=== PATIENT | female | born 1950 | race Caucasian/White ===

== ENCOUNTER → 2018-04-09 09:33 | Outpatient (CLI) | payer MEDICARE, OTHER, SELFPAY | PROVIDERS: Family Provider Specialist; PCP Specialist; Visit Provider Physician Assistant | DX: N39.0 Urinary tract infection, site not specified (principal) | CPT/HCPCS: 87086 ==

== ENCOUNTER 2018-08-09 10:30 | Outpatient (RCR) | payer MEDICARE, OTHER, SELFPAY ==
--- NOTE | 2018-01-04 11:18 | PT.OTN ---
Current Diagnoses Muscle weakness (generalized) (01/04/18) Other abnormalities of gait and mobility (01/04/18) Abnormal posture (01/04/18) Unspecified displaced fracture of second cervical vertebra, subsequent encounter for fracture with routine healing (01/04/18) Transition note: On January 02, 2018 our therapy services consisting of Speech, Occupational, and Physical Therapy transitioned from the [employer] electronic documentation system to a new [employer] electronic documentation system.?? All documentation prior to January 02 can be found under [employer] saved data. From January 02 forward all medical record documentation will be in [employer] 6.1.
--- NOTE | 2018-01-04 11:41 | PT.OTN ---
Current Diagnoses Muscle weakness (generalized) (01/04/18) Other abnormalities of gait and mobility (01/04/18) Abnormal posture (01/04/18) Unspecified displaced fracture of second cervical vertebra, subsequent encounter for fracture with routine healing (01/04/18) Physical Therapy Treatment Note PT-OP-A Visit Information Start: 01/04/18 10:28 Freq: Status: Active Protocol: Activity Type Activity Date Activity User E-Sign Co-Sign Detail Recorded Client Recorded Date Recorded By Document 01/04/18 11:25 [place] [id number] 01/04/18 11:29 [facility] 01/04/18 11:25 Out-Patient Physical Therapy Visit Information [Visit Information] -Visit Type Treatment Note -Visit Start Time 10:30 -Visit Stop Time 11:21 -Total Visit Minutes 51 -Visit Number 8 [Evaluation Information] -Evaluation Date 10/25/17 PT-OP-C Subjective Start: 01/04/18 10:28 Freq: Status: Active Protocol: Activity Type Activity Date Activity User E-Sign Co-Sign Detail Recorded Client Recorded Date Recorded By Document 01/04/18 11:29 [place] [id number] 01/04/18 11:31 [facility] 01/04/18 11:29 OP-PT Subjective [Patient Comments] -Patient Comments Pt notes that she is feeling like she is less worried about her neck with daily activities. She was able to go out in the garden yesterday for a little bit without pain. -Patient Reported Progress Improving PT-OP-K Range of Motion Start: 01/04/18 11:29 Freq: Status: Active Protocol: Activity Type Activity Date Activity User E-Sign Co-Sign Detail Recorded Client Recorded Date Recorded By Document 01/04/18 11:29 [place] [id number] 01/04/18 11:31 [facility] 01/04/18 11:29 Cervical Spine Range of Motion [Cervical Spine] Active Degrees -Testing Position Supine -Rotation Left 24 -Rotation Right 26 -ROM Limitations Soft Tissue Tightness Bony Restriction -Comments L rotation 29 deg, R rotation 30 deg after manual therapy. PT-OP-Q Treatments Start: 01/04/18 10:28 Freq: Status: Active Protocol: Activity Type Activity Date Activity User E-Sign Co-Sign Detail Recorded Client Recorded Date Recorded By Document 01/04/18 11:32 [place] [id number] 01/04/18 11:35 [facility] 01/04/18 11:32 Cardio Equipment [Recumbent Stepper (Sci-Fit)] -Duration (Minutes) 6 -Resistance 2 -Seat Position 11 -Other Sci-fit Manual Therapy Treatment [Soft Tissue Mobilization] 4 -Body Location Upper trapezius -Mobilization Type Sustained Pressure -Intensity/Depth Moderate -Body Position Supine -Comments 6 min. 3 -Body Location Levator scapulae -Mobilization Type Rolling -Intensity/Depth Moderate -Body Position Supine -Comments 10 min 2 -Body Location suboccipitals -Mobilization Type Rolling -Intensity/Depth Moderate -Body Position Supine -Comments 6 min 1 -Body Location Scalenes -Mobilization Type Rolling -Intensity/Depth Moderate -Body Position Supine -Comments 8 min PT-OP-R Modalities Start: 01/04/18 10:28 Freq: Status: Active Protocol: Activity Type Activity Date Activity User E-Sign Co-Sign Detail Recorded Client Recorded Date Recorded By Document 01/04/18 11:32 [place] [id number] 01/04/18 11:32 [facility] 01/04/18 11:32 Hot Pack/Cold Pack [Treatment] Hot Pack -Location cervical -Patient Position Supine -Treatment Duration (minutes) 15 -Patient Tolerance Good -Comments bolster PT-OP-T Assessment and Plan Start: 01/04/18 10:28 Freq: Status: Active Protocol: Activity Type Activity Date Activity User E-Sign Co-Sign Detail Recorded Client Recorded Date Recorded By Document 01/04/18 11:36 [place] [id number] 01/04/18 11:40 [facility] 01/04/18 11:36 Physical Therapy Assessment [Impairments] -Impairments Posture ROM Soft Tissue Mobility [Assessment Summary] -Assessment Pt with increase of cervical spine rotation after manual therapy, although significant time is required in order to make these improvements during each session. Pt is improved from baseline testing on initial evaluation, and is improving with her functional activities. Pt still unable to drive due to neck ROM limitation. Physical Therapy Plan [Frequency and Duration] -Frequency of Treatment 1x/Week -Duration of Treatment 12 wks -Plan of Care Start Date 10/25/17 -Plan of Care End Date 01/16/18 [Next Visit Focus/Plan] -Next Visit Plan continue to progress soft tissue mobilization to improve ROM, gentle joint mobilization of lower c/s, postural training.
--- NOTE | 2018-01-11 12:39 | PT.OTN ---
Current Diagnoses Muscle weakness (generalized) (01/11/18) Other abnormalities of gait and mobility (01/11/18) Abnormal posture (01/11/18) Unspecified displaced fracture of second cervical vertebra, subsequent encounter for fracture with routine healing (01/11/18) Physical Therapy Treatment Note PT-OP-A Visit Information Start: 01/04/18 10:28 Freq: Status: Active Protocol: Document 01/11/18 11:19 [facility] (Rec: 01/11/18 12:39 [facility] [email or web address]) Out-Patient Physical Therapy Visit Information Visit Information Visit Type Treatment Note Visit Start Time 10:35 Visit Stop Time 11:19 Total Visit Minutes 44 Visit Number 9 Number of ASSISTANT GOLF COACH Visits 0 PT-OP-C Subjective Start: 01/04/18 10:28 Freq: Status: Active Protocol: Document 01/11/18 11:19 [facility] (Rec: 01/11/18 12:39 [facility] [email or web address]) OP-PT Subjective Patient Comments Patient Comments Pt did some quilting before this session, she notes increased tension in the L neck and head after this activity. Patient Reported Progress Improving PT-OP-K Range of Motion Start: 01/04/18 11:29 Freq: Status: Active Protocol: Document 01/04/18 11:29 [facility] (Rec: 01/04/18 11:31 [facility] [email or web address]) Cervical Spine Range of Motion Cervical Spine Active Degrees Testing Position Supine Rotation Left 24 Rotation Right 26 ROM Limitations Soft Tissue Tightness Bony Restriction Comments L rotation 29 deg, R rotation 30 deg after manual therapy. PT-OP-Q Treatments Start: 01/04/18 10:28 Freq: Status: Active Protocol: Document 01/11/18 11:19 [facility] (Rec: 01/11/18 12:39 [facility] [email or web address]) Cardio Equipment Recumbent Stepper (Sci-Fit) Duration (Minutes) 8 Resistance 2 Seat Position 11 Manual Therapy Treatment Soft Tissue Mobilization 3 Body Location Levator scapula Mobilization Type Rolling Intensity/Depth Moderate Body Position Supine Comments 8 min 2 Body Location suboccipitals Mobilization Type Rolling Intensity/Depth Moderate Body Position Supine Comments 5 min 1 Body Location Scalenes Mobilization Type Rolling Intensity/Depth Moderate Body Position Supine Comments 8 min PT-OP-R Modalities Start: 01/04/18 10:28 Freq: Status: Active Protocol: Document 01/11/18 11:19 [facility] (Rec: 01/11/18 12:39 [facility] [email or web address]) Hot Pack/Cold Pack Treatment Hot Pack Location cervical Patient Position Supine Treatment Duration (minutes) 15 Patient Tolerance Good Comments kamilla PT-OP-T Assessment and Plan Start: 01/04/18 10:28 Freq: Status: Active Protocol: Document 01/11/18 11:19 [facility] (Rec: 01/11/18 12:39 [facility] [email or web address]) Physical Therapy Assessment Assessment Summary Assessment Pt with increased L posterior scalene and levator tension this session, likely due to head on neck positioning while quilting. Pt with mild L anterior hip soreness with Sci -fit, but improved activity tolerance of this activity as well as gentle cervical ROM noted with this activity without increased pain. Physical Therapy Plan Frequency and Duration Frequency of Treatment 1x/Week Duration of Treatment 12 wks Plan of Care Start Date 10/25/17 Plan of Care End Date 01/16/18 Next Visit Focus/Plan Next Visit Plan Re-assess objective measures next session, Re-evaluation.
--- NOTE | 2018-01-27 13:27 | PT.OTN ---
Current Diagnoses Muscle weakness (generalized) (01/25/18) Other abnormalities of gait and mobility (01/25/18) Abnormal posture (01/25/18) Unspecified displaced fracture of second cervical vertebra, subsequent encounter for fracture with routine healing (01/25/18) Physical Therapy Treatment Note PT-OP-A Visit Information Start: 01/04/18 10:28 Freq: Status: Active Protocol: Document 01/25/18 11:15 [facility] (Rec: 01/27/18 13:25 [facility] [email or web address]) Out-Patient Physical Therapy Visit Information Visit Information Visit Type Treatment Note Visit Start Time 10:30 Visit Stop Time 11:15 Total Visit Minutes 45 Visit Number 10 Number of SERVICE TEAM LEADER Visits 0 Evaluation Information Evaluation Date 10/25/17 PT-OP-C Subjective Start: 01/04/18 10:28 Freq: Status: Active Protocol: Document 01/25/18 11:15 [facility] (Rec: 01/27/18 13:25 [facility] [email or web address]) OP-PT Subjective Patient Comments Patient Comments Pt states that she has some increased soreness in her shoulders from doing some house chores. She feels like her ROM is getting better. Patient Reported Progress Improving PT-OP-K Range of Motion Start: 01/04/18 11:29 Freq: Status: Active Protocol: Document 01/25/18 11:15 [facility] (Rec: 01/27/18 13:25 [facility] [email or web address]) Cervical Spine Range of Motion Cervical Spine Active Degrees Testing Position Sitting Flexion 46 Extension 26 Rotation Left 26 Rotation Right 31 Lateral Flexion Left 18 Lateral Flexion Right 20 ROM Limitations Soft Tissue Tightness Bony Restriction Comments Initial ROM on 10/25/2017: flexion 31 deg, extension 9 deg, L rotation 14 deg,R rotation 17 deg, L SB 12 deg, R SB 8 deg. PT-OP-M Strength Start: 01/27/18 13:02 Freq: Status: Active Protocol: Document 01/25/18 11:15 [facility] (Rec: 01/27/18 13:25 [facility] [email or web address]) Scapula Strength Scapula Manual Muscle Testing Right Elevation (C4) 5 Normal Left Elevation (C4) 5 Normal Shoulder Strength Shoulder Manual Muscle Testing Right Flexion 5 Normal Abduction (C5) 4+ Good+ External Rotation 5 Normal Internal Rotation 5 Normal Left Flexion 5 Normal Abduction (C5) 4+ Good+ External Rotation 5 Normal Internal Rotation 5 Normal Elbow/Forearm Strength Elbow and Forearm Manual Muscle Testing Right Flexion (C6) 5 Normal Extension (C7) 5 Normal Left Flexion (C6) 4+ Good+ Extension (C7) 4+ Good+ PT-OP-Q Treatments Start: 01/04/18 10:28 Freq: Status: Active Protocol: Document 01/25/18 11:15 [facility] (Rec: 01/27/18 13:25 [facility] [email or web address]) Manual Therapy Treatment Soft Tissue Mobilization 4 Body Location Upper trapezius Mobilization Type Sustained Pressure Intensity/Depth Moderate Body Position Supine Comments 8 min. 3 Body Location Levator scapula Mobilization Type Rolling Intensity/Depth Moderate Body Position Supine Comments 8 min 2 Body Location suboccipitals Mobilization Type Rolling Intensity/Depth Moderate Body Position Supine Comments 6 min 1 Body Location Scalenes Mobilization Type Rolling Intensity/Depth Moderate Body Position Supine Comments 8 min Other Other Manual Treatments ROM, UE MMT: 10 min PT-OP-R Modalities Start: 01/04/18 10:28 Freq: Status: Active Protocol: Document 01/25/18 11:15 [facility] (Rec: 01/27/18 13:27 [facility] [email or web address]) Hot Pack/Cold Pack Treatment Hot Pack Location cervical Patient Position Supine Treatment Duration (minutes) 15 Patient Tolerance Good Comments bolster PT-OP-T Assessment and Plan Start: 01/04/18 10:28 Freq: Status: Active Protocol: Document 01/25/18 11:15 [facility] (Rec: 01/27/18 13:25 [facility] [email or web address]) Physical Therapy Assessment Rehab Potential Rehabilitation Potential Fair Impairments Impairments Functional Activities Posture ROM Soft Tissue Mobility Strength Goals Five Impairment Neck strength Mcc Goal (LTG) Pt will be able to perform supine<->sit without UE assist on head for support prior to d/c. (goal achieved) LTG Duration 12 weeks Four Impairment UE strength Mcc Goal (LTG) Bilateral Elbow flexion and extension 5/ 5 Shoulder abduction, extension, ER, flexion, IR 5/5 LTG Duration 12 weeks Three Impairment Lack appropriate HEP Stogy Roller Goal (LTG) Indep. with HEP LTG Duration 12 weeks Two Impairment cervical spine ROM Mcc Goal (LTG) AROM: extension 35 deg flexion 50 deg rotation L 50 deg rotation R 50 deg side bend L 30 deg side bend R 30 deg LTG Duration 12 weeks One Impairment Unable to drive Stogy Roller Goal (LTG) Pt will report improved ability to head-check while driving prior to d/c. LTG Duration 12 weeks Progress Towards Goals Progress Towards Goals Slow Progress - Other Progress Comments slow progress due to prolonged immobilizaiton and complexity of previous fx. Goal met of ability to perform supine<-> sit without UE support. Assessment Summary Assessment Pt is progressing with her cervical spine ROM, but still significantly limited given the hypomobility of the cervical spine, especially the upper cervical spine given her fracture and prolonged immobilization. Pt is still unable to perform a safe head -check for driving, but is back to doing daily chores at home. Pt is making progress toward goals, and would greatly benefit from the continuation of skilled physical therapy to achieve established goals and improve quality of life by improving ROM, strength, and function to allow for prior level of activity tolerance. Physical Therapy Plan Frequency and Duration Frequency of Treatment 1x/Week Duration of Treatment 12 wks Plan of Care Start Date 01/25/18 Plan of Care End Date 04/19/18 Therapeutic Interventions Therapeutic Interventions Aquatic Therapy Balance Training Home Exercise Program Joint Mobilizations Manual Therapy Neuromuscular Re-education Patient/Caregiver Education Self-Care/Home Management Soft Tissue Mobilization Therapeutic Activities Therapeutic Exercises Modalities Cold Pack/Ice Massage Electric Stimulation Hot Packs Ultrasound Next Visit Focus/Plan Next Note Type Treatment Note Next Visit Plan progress ROM, decrease soft tissue restrictions. Please Sign and Return: I have reviewed this Plan of Care and certify that the skilled therapy services above are required to meet the patient???s needs. Physician Signature Date Printed Name and Credentials Clinical Instructor Signature Printed Name and Credentials
--- NOTE | 2018-02-01 12:26 | PT.OTN ---
Current Diagnoses Muscle weakness (generalized) (02/01/18) Other abnormalities of gait and mobility (02/01/18) Abnormal posture (02/01/18) Unspecified displaced fracture of second cervical vertebra, subsequent encounter for fracture with routine healing (02/01/18) Physical Therapy Treatment Note PT-OP-A Visit Information Start: 01/04/18 10:28 Freq: Status: Active Protocol: Document 02/01/18 11:15 [facility] (Rec: 02/01/18 12:26 [facility] [email or web address]) Out-Patient Physical Therapy Visit Information Visit Information Visit Type Treatment Note Visit Start Time 10:30 Visit Stop Time 11:15 Total Visit Minutes 45 Visit Number 11 Number of TOOL ROOM MACHINIST Visits 0 Evaluation Information Evaluation Date 10/25/17 PT-OP-C Subjective Start: 01/04/18 10:28 Freq: Status: Active Protocol: Document 02/01/18 11:15 [facility] (Rec: 02/01/18 12:26 [facility] [email or web address]) OP-PT Subjective Patient Comments Patient Comments Pt was able to to drive today with her for the first time since her injury. She has noticed a slight increase in her ability to tolerate increased time sewing. Patient Reported Progress Improving PT-OP-K Range of Motion Start: 01/04/18 11:29 Freq: Status: Active Protocol: Document 01/25/18 11:15 [facility] (Rec: 01/27/18 13:25 [facility] [email or web address]) Cervical Spine Range of Motion Cervical Spine Active Degrees Testing Position Sitting Flexion 46 Extension 26 Rotation Left 26 Rotation Right 31 Lateral Flexion Left 18 Lateral Flexion Right 20 ROM Limitations Soft Tissue Tightness Bony Restriction Comments Initial ROM on 10/25/2017: flexion 31 deg, extension 9 deg, L rotation 14 deg,R rotation 17 deg, L SB 12 deg, R SB 8 deg. PT-OP-M Strength Start: 01/27/18 13:02 Freq: Status: Active Protocol: Document 01/25/18 11:15 [facility] (Rec: 01/27/18 13:25 [facility] [email or web address]) Scapula Strength Scapula Manual Muscle Testing Right Elevation (C4) 5 Normal Left Elevation (C4) 5 Normal Shoulder Strength Shoulder Manual Muscle Testing Right Flexion 5 Normal Abduction (C5) 4+ Good+ External Rotation 5 Normal Internal Rotation 5 Normal Left Flexion 5 Normal Abduction (C5) 4+ Good+ External Rotation 5 Normal Internal Rotation 5 Normal Elbow/Forearm Strength Elbow and Forearm Manual Muscle Testing Right Flexion (C6) 5 Normal Extension (C7) 5 Normal Left Flexion (C6) 4+ Good+ Extension (C7) 4+ Good+ PT-OP-Q Treatments Start: 01/04/18 10:28 Freq: Status: Active Protocol: Document 02/01/18 11:15 [facility] (Rec: 02/01/18 12:26 [facility] [email or web address]) Cardio Equipment Recumbent Elliptical (Bi[employer]) Duration (Minutes) 8 Resistance 2 Therapeutic Exercises Supine Exercises 1 Supine Exercise Name levator and UT stretch Side bilateral Comments manual Manual Therapy Treatment Soft Tissue Mobilization 4 Body Location Upper trapezius Mobilization Type Sustained Pressure Intensity/Depth Moderate Body Position Supine Comments 2 min. 3 Body Location Levator scapula Mobilization Type Rolling Intensity/Depth Moderate Body Position Supine Comments 6 min 2 Body Location suboccipitals Mobilization Type Rolling Intensity/Depth Moderate Body Position Supine Comments 6 min 1 Body Location Scalenes Mobilization Type Rolling Intensity/Depth Moderate Body Position Supine Comments 6 min PT-OP-R Modalities Start: 01/04/18 10:28 Freq: Status: Active Protocol: Document 02/01/18 11:15 [facility] (Rec: 02/01/18 12:26 [facility] [email or web address]) Hot Pack/Cold Pack Treatment Hot Pack Location cervical Patient Position Supine Treatment Duration (minutes) 15 Patient Tolerance Good Comments kamilla PT-OP-T Assessment and Plan Start: 01/04/18 10:28 Freq: Status: Active Protocol: Document 02/01/18 11:15 [facility] (Rec: 02/01/18 12:26 [facility] [email or web address]) Physical Therapy Assessment Assessment Summary Assessment Pt with L>R tension in levator and scalenes. Pt still severely restricted with ROM, but reports improvments with overall function. Pt would greatly benefit from the continuation of skilled outpatient physical therapy to progress her activity tolerance, postural stabilization and ROM. Physical Therapy Plan Frequency and Duration Frequency of Treatment 1x/Week Duration of Treatment 12 wks Plan of Care Start Date 01/25/18 Plan of Care End Date 04/19/18 Next Visit Focus/Plan Next Note Type Treatment Note Next Visit Plan cervical spine ROM, jose-glides /joint mobs of lower c/s. Please Sign and Return: I have reviewed this Plan of Care and certify that the skilled therapy services above are required to meet the patient???s needs. Physician Signature Date Printed Name and Credentials Clinical Instructor Signature Printed Name and Credentials
--- NOTE | 2018-02-08 11:46 | PT.OTN ---
Current Diagnoses Muscle weakness (generalized) (02/08/18) Other abnormalities of gait and mobility (02/08/18) Abnormal posture (02/08/18) Unspecified displaced fracture of second cervical vertebra, subsequent encounter for fracture with routine healing (02/08/18) Physical Therapy Treatment Note PT-OP-A Visit Information Start: 01/04/18 10:28 Freq: Status: Active Protocol: Document 02/08/18 11:14 [facility] (Rec: 02/08/18 11:45 [facility] [email or web address]) Out-Patient Physical Therapy Visit Information Visit Information Visit Type Treatment Note Visit Start Time 10:31 Visit Stop Time 11:14 Total Visit Minutes 43 Visit Number 12 Number of MID LEVEL DEVELOPER Visits 0 Evaluation Information Evaluation Date 10/25/17 PT-OP-C Subjective Start: 01/04/18 10:28 Freq: Status: Active Protocol: Document 02/08/18 11:14 [facility] (Rec: 02/08/18 11:45 [facility] [email or web address]) OP-PT Subjective Patient Comments Patient Comments Pt notes that she has been doing a lot of sewing over the past couple of days and is a little sore. Denies pain PT-OP-K Range of Motion Start: 01/04/18 11:29 Freq: Status: Active Protocol: Document 01/25/18 11:15 [facility] (Rec: 01/27/18 13:25 [facility] [email or web address]) Cervical Spine Range of Motion Cervical Spine Active Degrees Testing Position Sitting Flexion 46 Extension 26 Rotation Left 26 Rotation Right 31 Lateral Flexion Left 18 Lateral Flexion Right 20 ROM Limitations Soft Tissue Tightness Bony Restriction Comments Initial ROM on 10/25/2017: flexion 31 deg, extension 9 deg, L rotation 14 deg,R rotation 17 deg, L SB 12 deg, R SB 8 deg. PT-OP-M Strength Start: 01/27/18 13:02 Freq: Status: Active Protocol: Document 01/25/18 11:15 [facility] (Rec: 01/27/18 13:25 [facility] [email or web address]) Scapula Strength Scapula Manual Muscle Testing Right Elevation (C4) 5 Normal Left Elevation (C4) 5 Normal Shoulder Strength Shoulder Manual Muscle Testing Right Flexion 5 Normal Abduction (C5) 4+ Good+ External Rotation 5 Normal Internal Rotation 5 Normal Left Flexion 5 Normal Abduction (C5) 4+ Good+ External Rotation 5 Normal Internal Rotation 5 Normal Elbow/Forearm Strength Elbow and Forearm Manual Muscle Testing Right Flexion (C6) 5 Normal Extension (C7) 5 Normal Left Flexion (C6) 4+ Good+ Extension (C7) 4+ Good+ PT-OP-Q Treatments Start: 01/04/18 10:28 Freq: Status: Active Protocol: Document 02/08/18 11:14 [facility] (Rec: 02/08/18 11:45 [facility] [email or web address]) Cardio Equipment Recumbent Stepper (Sci-Fit) Duration (Minutes) 8 Resistance 2 Seat Position 11 Manual Therapy Treatment Soft Tissue Mobilization 3 Body Location Levator scapula Mobilization Type Rolling Intensity/Depth Moderate Body Position Supine Comments 4 min 2 Body Location suboccipitals Mobilization Type Rolling Intensity/Depth Moderate Body Position Supine Comments 6 min 1 Body Location Scalenes Mobilization Type Rolling Intensity/Depth Moderate Body Position Supine Comments 5 min Joint Mobilizations 1 Joint C3-6 Direction bilateral Grade III Body Position Supine Reps/Duration 10 min Comments Side-gliding. PT-OP-R Modalities Start: 01/04/18 10:28 Freq: Status: Active Protocol: Document 02/08/18 11:14 [facility] (Rec: 02/08/18 11:46 [facility] [email or web address]) Hot Pack/Cold Pack Treatment Hot Pack Location cervical Patient Position Supine Treatment Duration (minutes) 10 Patient Tolerance Good Comments bolster PT-OP-T Assessment and Plan Start: 01/04/18 10:28 Freq: Status: Active Protocol: Document 02/08/18 11:14 [facility] (Rec: 02/08/18 11:45 [facility] [email or web address]) Physical Therapy Assessment Assessment Summary Assessment Pt with greater restriction of cervical rotation to the R compared to the L, but appears to be improving in both directions. Side-gliding of mid to lower cervical spine was tolerated well and assisted with increased ROM. Pt is still highly restricted in her ROM, and would benefit from the continuation of skilled physical therapy to continue to progress. Physical Therapy Plan Frequency and Duration Frequency of Treatment 1x/Week Duration of Treatment 12 wks Plan of Care Start Date 01/25/18 Plan of Care End Date 04/19/18 Next Visit Focus/Plan Next Note Type Treatment Note Next Visit Plan continue with current POC. Please Sign and Return: I have reviewed this Plan of Care and certify that the skilled therapy services above are required to meet the patient?s needs. Physician Signature Date Printed Name and Credentials Clinical Instructor Signature Printed Name and Credentials
--- NOTE | 2018-02-15 12:00 | PT.OTN ---
Current Diagnoses Muscle weakness (generalized) (02/15/18) Other abnormalities of gait and mobility (02/15/18) Abnormal posture (02/15/18) Unspecified displaced fracture of second cervical vertebra, subsequent encounter for fracture with routine healing (02/15/18) Physical Therapy Treatment Note PT-OP-A Visit Information Start: 01/04/18 10:28 Freq: Status: Active Protocol: Document 02/15/18 11:15 [facility] (Rec: 02/15/18 12:00 [email or web address]) Out-Patient Physical Therapy Visit Information Visit Information Visit Type Treatment Note Visit Start Time 10:30 Visit Stop Time 11:15 Total Visit Minutes 45 Visit Number 13 Number of ARMATURE REWINDER Visits 0 Evaluation Information Evaluation Date 10/25/17 PT-OP-C Subjective Start: 01/04/18 10:28 Freq: Status: Active Protocol: Document 02/15/18 11:15 [facility] (Rec: 02/15/18 12:00 [email or web address]) OP-PT Subjective Patient Comments Patient Comments Pt reports overall she is improving with her neck ROM slowly. PT-OP-K Range of Motion Start: 01/04/18 11:29 Freq: Status: Active Protocol: Document 01/25/18 11:15 [facility] (Rec: 01/27/18 13:25 [email or web address]) Cervical Spine Range of Motion Cervical Spine Active Degrees Testing Position Sitting Flexion 46 Extension 26 Rotation Left 26 Rotation Right 31 Lateral Flexion Left 18 Lateral Flexion Right 20 ROM Limitations Soft Tissue Tightness Bony Restriction Comments Initial ROM on 10/25/2017: flexion 31 deg, extension 9 deg, L rotation 14 deg,R rotation 17 deg, L SB 12 deg, R SB 8 deg. PT-OP-M Strength Start: 01/27/18 13:02 Freq: Status: Active Protocol: Document 01/25/18 11:15 [facility] (Rec: 01/27/18 13:25 [email or web address]) Scapula Strength Scapula Manual Muscle Testing Right Elevation (C4) 5 Normal Left Elevation (C4) 5 Normal Shoulder Strength Shoulder Manual Muscle Testing Right Flexion 5 Normal Abduction (C5) 4+ Good+ External Rotation 5 Normal Internal Rotation 5 Normal Left Flexion 5 Normal Abduction (C5) 4+ Good+ External Rotation 5 Normal Internal Rotation 5 Normal Elbow/Forearm Strength Elbow and Forearm Manual Muscle Testing Right Flexion (C6) 5 Normal Extension (C7) 5 Normal Left Flexion (C6) 4+ Good+ Extension (C7) 4+ Good+ PT-OP-Q Treatments Start: 01/04/18 10:28 Freq: Status: Active Protocol: Document 02/15/18 11:15 [facility] (Rec: 02/15/18 12:00 [facility] [email or web address]) Cardio Equipment Recumbent Stepper (Sci-Fit) Duration (Minutes) 8 Resistance 2 Seat Position 11 Manual Therapy Treatment Soft Tissue Mobilization 4 Body Location Upper trapezius Mobilization Type Sustained Pressure Intensity/Depth Moderate Body Position Supine Comments 2 min. 3 Body Location Levator scapula Mobilization Type Rolling Intensity/Depth Moderate Body Position Supine Comments 5 min 2 Body Location suboccipitals Mobilization Type Rolling Intensity/Depth Moderate Body Position Supine Comments 6 min 1 Body Location Scalenes Mobilization Type Rolling Intensity/Depth Moderate Body Position Supine Comments 4 min Joint Mobilizations 1 Joint C3-6 Direction bilateral Grade III Body Position Supine Reps/Duration 12 min Comments Side-gliding. PT-OP-R Modalities Start: 01/04/18 10:28 Freq: Status: Active Protocol: Document 02/15/18 11:15 [facility] (Rec: 02/15/18 12:00 [facility] [email or web address]) Hot Pack/Cold Pack Treatment Hot Pack Location cervical Patient Position Supine Treatment Duration (minutes) 10 Patient Tolerance Good Comments bolster PT-OP-T Assessment and Plan Start: 01/04/18 10:28 Freq: Status: Active Protocol: Document 02/15/18 11:15 [facility] (Rec: 02/15/18 12:00 [facility] [email or web address]) Physical Therapy Assessment Assessment Summary Assessment Pt able to turn head on neck to the L with less trunk motion of the thoracic spine, but still limited and not WNL. Pt continues to require further physical therapy treatment for STM, joint mobility, improving ROM and strength and posture to return to prior level of function and improve functional independence. Physical Therapy Plan Frequency and Duration Frequency of Treatment 1x/Week Duration of Treatment 12 wks Plan of Care Start Date 01/25/18 Plan of Care End Date 04/19/18 Next Visit Focus/Plan Next Note Type Treatment Note Next Visit Plan cervical ROM and strength, posture. Please Sign and Return: I have reviewed this Plan of Care and certify that the skilled therapy services above are required to meet the patient?s needs. Physician Signature Date Printed Name and Credentials Clinical Instructor Signature Printed Name and Credentials
--- NOTE | 2018-02-22 11:15 | PT.OTN ---
Current Diagnoses Muscle weakness (generalized) (02/22/18) Other abnormalities of gait and mobility (02/22/18) Abnormal posture (02/22/18) Unspecified displaced fracture of second cervical vertebra, subsequent encounter for fracture with routine healing (02/22/18) Physical Therapy Treatment Note PT-OP-A Visit Information Start: 01/04/18 10:28 Freq: Status: Active Protocol: Document 02/22/18 11:15 [facility] (Rec: 02/22/18 13:40 [email or web address]) Out-Patient Physical Therapy Visit Information Visit Information Visit Type Treatment Note Visit Start Time 10:30 Visit Stop Time 11:15 Total Visit Minutes 45 Visit Number 14 Number of BUSINESS PARTNER Visits 0 Evaluation Information Evaluation Date 10/25/17 PT-OP-C Subjective Start: 01/04/18 10:28 Freq: Status: Active Protocol: Document 02/22/18 11:15 [facility] (Rec: 02/22/18 13:40 [email or web address]) OP-PT Subjective Patient Comments Patient Comments Pt notes that she has occasional kinking in her neck. Otherwise has been more active this past week. PT-OP-K Range of Motion Start: 01/04/18 11:29 Freq: Status: Active Protocol: Document 01/25/18 11:15 [facility] (Rec: 01/27/18 13:25 [email or web address]) Cervical Spine Range of Motion Cervical Spine Active Degrees Testing Position Sitting Flexion 46 Extension 26 Rotation Left 26 Rotation Right 31 Lateral Flexion Left 18 Lateral Flexion Right 20 ROM Limitations Soft Tissue Tightness Bony Restriction Comments Initial ROM on 10/25/2017: flexion 31 deg, extension 9 deg, L rotation 14 deg,R rotation 17 deg, L SB 12 deg, R SB 8 deg. PT-OP-M Strength Start: 01/27/18 13:02 Freq: Status: Active Protocol: Document 01/25/18 11:15 [facility] (Rec: 01/27/18 13:25 [facility] [email or web address]) Scapula Strength Scapula Manual Muscle Testing Right Elevation (C4) 5 Normal Left Elevation (C4) 5 Normal Shoulder Strength Shoulder Manual Muscle Testing Right Flexion 5 Normal Abduction (C5) 4+ Good+ External Rotation 5 Normal Internal Rotation 5 Normal Left Flexion 5 Normal Abduction (C5) 4+ Good+ External Rotation 5 Normal Internal Rotation 5 Normal Elbow/Forearm Strength Elbow and Forearm Manual Muscle Testing Right Flexion (C6) 5 Normal Extension (C7) 5 Normal Left Flexion (C6) 4+ Good+ Extension (C7) 4+ Good+ PT-OP-Q Treatments Start: 01/04/18 10:28 Freq: Status: Active Protocol: Document 02/22/18 11:15 [facility] (Rec: 02/22/18 13:40 [facility] [email or web address]) Cardio Equipment Recumbent Stepper (Sci-Fit) Duration (Minutes) 8 Resistance 2 Seat Position 11 Manual Therapy Treatment Soft Tissue Mobilization 4 Body Location Upper trapezius Mobilization Type Sustained Pressure Intensity/Depth Moderate Body Position Supine Comments 2 min. 3 Body Location Levator scapula Mobilization Type Rolling Intensity/Depth Moderate Body Position Supine Comments 6 min 2 Body Location suboccipitals Mobilization Type Rolling Intensity/Depth Moderate Body Position Supine Comments 4 min 1 Body Location Scalenes Mobilization Type Rolling Intensity/Depth Moderate Body Position Supine Comments 4 min Joint Mobilizations 1 Joint C3-6 Direction bilateral Grade III Body Position Supine Reps/Duration 6 min Comments Side-gliding. PT-OP-R Modalities Start: 01/04/18 10:28 Freq: Status: Active Protocol: Document 02/22/18 11:15 [facility] (Rec: 02/22/18 13:40 [email or web address]) Hot Pack/Cold Pack Treatment Hot Pack Location cervical Patient Position Supine Treatment Duration (minutes) 15 Patient Tolerance Good Comments bolster PT-OP-T Assessment and Plan Start: 01/04/18 10:28 Freq: Status: Active Protocol: Document 02/22/18 11:15 [facility] (Rec: 02/22/18 13:40 [facility] [email or web address]) Physical Therapy Assessment Assessment Summary Assessment Pt continues to have increased cervical spine musculature tension and joint hypomobility throughout the cervical spine. Increased cervical rotation to the L after manual therapy. Physical Therapy Plan Frequency and Duration Frequency of Treatment 1x/Week Duration of Treatment 12 wks Plan of Care Start Date 01/25/18 Plan of Care End Date 04/19/18 Next Visit Focus/Plan Next Note Type Treatment Note Next Visit Plan cervical ROM and strength, posture.
--- NOTE | 2018-03-01 11:15 | PT.OTN ---
Current Diagnoses Muscle weakness (generalized) (03/01/18) Other abnormalities of gait and mobility (03/01/18) Abnormal posture (03/01/18) Unspecified displaced fracture of second cervical vertebra, subsequent encounter for fracture with routine healing (03/01/18) Physical Therapy Treatment Note PT-OP-A Visit Information Start: 01/04/18 10:28 Freq: Status: Active Protocol: Document 03/01/18 11:15 [facility] (Rec: 03/01/18 13:40 [email or web address]) Out-Patient Physical Therapy Visit Information Visit Information Visit Type Treatment Note Visit Start Time 10:30 Visit Stop Time 11:15 Total Visit Minutes 40 Visit Number 15 Number of 911 EMERGENCY SERVICES DISPATCHER Visits 0 Evaluation Information Evaluation Date 10/25/17 PT-OP-C Subjective Start: 01/04/18 10:28 Freq: Status: Active Protocol: Document 03/01/18 11:15 [facility] (Rec: 03/01/18 13:40 [facility] [email or web address]) OP-PT Subjective Patient Comments Patient Comments Pt with no new complaints today. PT-OP-K Range of Motion Start: 01/04/18 11:29 Freq: Status: Active Protocol: Document 01/25/18 11:15 [facility] (Rec: 01/27/18 13:25 [facility] [email or web address]) Cervical Spine Range of Motion Cervical Spine Active Degrees Testing Position Sitting Flexion 46 Extension 26 Rotation Left 26 Rotation Right 31 Lateral Flexion Left 18 Lateral Flexion Right 20 ROM Limitations Soft Tissue Tightness Bony Restriction Comments Initial ROM on 10/25/2017: flexion 31 deg, extension 9 deg, L rotation 14 deg,R rotation 17 deg, L SB 12 deg, R SB 8 deg. PT-OP-M Strength Start: 01/27/18 13:02 Freq: Status: Active Protocol: Document 01/25/18 11:15 [facility] (Rec: 01/27/18 13:25 [facility] [email or web address]) Scapula Strength Scapula Manual Muscle Testing Right Elevation (C4) 5 Normal Left Elevation (C4) 5 Normal Shoulder Strength Shoulder Manual Muscle Testing Right Flexion 5 Normal Abduction (C5) 4+ Good+ External Rotation 5 Normal Internal Rotation 5 Normal Left Flexion 5 Normal Abduction (C5) 4+ Good+ External Rotation 5 Normal Internal Rotation 5 Normal Elbow/Forearm Strength Elbow and Forearm Manual Muscle Testing Right Flexion (C6) 5 Normal Extension (C7) 5 Normal Left Flexion (C6) 4+ Good+ Extension (C7) 4+ Good+ PT-OP-Q Treatments Start: 01/04/18 10:28 Freq: Status: Active Protocol: Document 03/01/18 11:15 [facility] (Rec: 03/01/18 13:40 [facility] [email or web address]) Cardio Equipment Recumbent Stepper (Sci-Fit) Duration (Minutes) 8 Resistance 2 Seat Position 11 Manual Therapy Treatment Soft Tissue Mobilization 3 Body Location Levator scapula Mobilization Type Rolling Intensity/Depth Moderate Body Position Supine Comments 4 min 2 Body Location suboccipitals Mobilization Type Rolling Intensity/Depth Moderate Body Position Supine Comments 4 min 1 Body Location Scalenes Mobilization Type Rolling Intensity/Depth Moderate Body Position Supine Comments 5 min Joint Mobilizations 1 Joint C3-6 Direction bilateral Grade III Body Position Supine Reps/Duration 4 min Comments Side-gliding. PT-OP-R Modalities Start: 01/04/18 10:28 Freq: Status: Active Protocol: Document 03/01/18 11:15 [facility] (Rec: 03/01/18 13:40 [facility] [email or web address]) Hot Pack/Cold Pack Treatment Hot Pack Location cervical Patient Position Supine Treatment Duration (minutes) 15 Patient Tolerance Good Comments bolster PT-OP-T Assessment and Plan Start: 01/04/18 10:28 Freq: Status: Active Protocol: Document 03/01/18 11:15 [facility] (Rec: 03/01/18 13:40 [facility] [email or web address]) Physical Therapy Assessment Assessment Summary Assessment L>R restriction of levator and scalenes, but slight increase in joint mobility with lower cervical side-glides. Pt still with significantly limited ROM secondary to prolonged immobilization of the cervical spine. Physical Therapy Plan Frequency and Duration Frequency of Treatment 1x/Week Duration of Treatment 12 wks Plan of Care Start Date 01/25/18 Plan of Care End Date 04/19/18 Next Visit Focus/Plan Next Note Type Treatment Note Next Visit Plan cervical ROM and soft tissue flexibility/mobility.
--- NOTE | 2018-03-08 11:15 | PT.OTN ---
Current Diagnoses Muscle weakness (generalized) (03/08/18) Other abnormalities of gait and mobility (03/08/18) Abnormal posture (03/08/18) Unspecified displaced fracture of second cervical vertebra, subsequent encounter for fracture with routine healing (03/08/18) Physical Therapy Treatment Note PT-OP-A Visit Information Start: 01/04/18 10:28 Freq: Status: Active Protocol: Document 03/08/18 11:15 [facility] (Rec: 03/08/18 12:16 [email or web address]) Out-Patient Physical Therapy Visit Information Visit Information Visit Type Treatment Note Visit Start Time 10:30 Visit Stop Time 11:15 Total Visit Minutes 45 Visit Number 16 Number of CPR INSTRUCTOR Visits 0 Evaluation Information Evaluation Date 10/25/17 PT-OP-C Subjective Start: 01/04/18 10:28 Freq: Status: Active Protocol: Document 03/08/18 11:15 [facility] (Rec: 03/08/18 12:16 [facility] [email or web address]) OP-PT Subjective Patient Comments Patient Comments Pt notes that she drove herself today. She is having some neck popping on the L side with occasional movements . PT-OP-K Range of Motion Start: 01/04/18 11:29 Freq: Status: Active Protocol: Document 01/25/18 11:15 [facility] (Rec: 01/27/18 13:25 [facility] [email or web address]) Cervical Spine Range of Motion Cervical Spine Active Degrees Testing Position Sitting Flexion 46 Extension 26 Rotation Left 26 Rotation Right 31 Lateral Flexion Left 18 Lateral Flexion Right 20 ROM Limitations Soft Tissue Tightness Bony Restriction Comments Initial ROM on 10/25/2017: flexion 31 deg, extension 9 deg, L rotation 14 deg,R rotation 17 deg, L SB 12 deg, R SB 8 deg. PT-OP-M Strength Start: 01/27/18 13:02 Freq: Status: Active Protocol: Document 01/25/18 11:15 [facility] (Rec: 01/27/18 13:25 [facility] [email or web address]) Scapula Strength Scapula Manual Muscle Testing Right Elevation (C4) 5 Normal Left Elevation (C4) 5 Normal Shoulder Strength Shoulder Manual Muscle Testing Right Flexion 5 Normal Abduction (C5) 4+ Good+ External Rotation 5 Normal Internal Rotation 5 Normal Left Flexion 5 Normal Abduction (C5) 4+ Good+ External Rotation 5 Normal Internal Rotation 5 Normal Elbow/Forearm Strength Elbow and Forearm Manual Muscle Testing Right Flexion (C6) 5 Normal Extension (C7) 5 Normal Left Flexion (C6) 4+ Good+ Extension (C7) 4+ Good+ PT-OP-Q Treatments Start: 01/04/18 10:28 Freq: Status: Active Protocol: Document 03/08/18 11:15 [facility] (Rec: 03/08/18 12:16 [facility] [email or web address]) Cardio Equipment Recumbent Stepper (Sci-Fit) Duration (Minutes) 8 Resistance 3 Seat Position 11 Manual Therapy Treatment Soft Tissue Mobilization 4 Body Location Upper trapezius Mobilization Type Sustained Pressure Intensity/Depth Moderate Body Position Supine Comments 4 min. 3 Body Location Levator scapula Mobilization Type Rolling Intensity/Depth Moderate Body Position Supine Comments 4 min 2 Body Location suboccipitals Mobilization Type Rolling Intensity/Depth Moderate Body Position Supine Comments 5 min 1 Body Location Scalenes Mobilization Type Rolling Intensity/Depth Moderate Body Position Supine Comments 4 min Joint Mobilizations 1 Joint C3-6 Direction bilateral Grade III Body Position Supine Reps/Duration 10 min Comments Side-gliding. PT-OP-R Modalities Start: 01/04/18 10:28 Freq: Status: Active Protocol: Document 03/08/18 11:15 [facility] (Rec: 03/08/18 12:16 [facility] [email or web address]) Hot Pack/Cold Pack Treatment Hot Pack Location cervical Patient Position Supine Treatment Duration (minutes) 10 Patient Tolerance Good Comments mickeyster PT-OP-T Assessment and Plan Start: 01/04/18 10:28 Freq: Status: Active Protocol: Document 03/08/18 11:15 [facility] (Rec: 03/08/18 12:16 [facility] [email or web address]) Physical Therapy Assessment Assessment Summary Assessment Unable to reproduce popping sensation with neck motion, no pain but definite restriction of soft tissue. Pt continues to report improvements with function, but does require further ongoing physical therapy to progress ROM. Physical Therapy Plan Frequency and Duration Frequency of Treatment 1x/Week Duration of Treatment 12 wks Plan of Care Start Date 01/25/18 Plan of Care End Date 04/19/18 Next Visit Focus/Plan Next Note Type Treatment Note Next Visit Plan continue to progress ROM for functional gains in ability.
--- NOTE | 2018-03-15 11:15 | PT.OTN ---
Current Diagnoses Muscle weakness (generalized) (03/15/18) Other abnormalities of gait and mobility (03/15/18) Abnormal posture (03/15/18) Unspecified displaced fracture of second cervical vertebra, subsequent encounter for fracture with routine healing (03/15/18) Physical Therapy Treatment Note PT-OP-A Visit Information Start: 01/04/18 10:28 Freq: Status: Active Protocol: Document 03/15/18 11:15 [facility] (Rec: 03/15/18 12:30 [email or web address]) Out-Patient Physical Therapy Visit Information Visit Information Visit Type Treatment Note Visit Start Time 10:37 Visit Stop Time 11:15 Total Visit Minutes 38 Visit Number 17 Number of NURSE SEXUAL ASSAULT Visits 0 Evaluation Information Evaluation Date 10/25/17 PT-OP-C Subjective Start: 01/04/18 10:28 Freq: Status: Active Protocol: Document 03/15/18 11:15 [facility] (Rec: 03/15/18 12:30 [facility] [email or web address]) OP-PT Subjective Patient Comments Patient Comments Pt notes that driving is somewhat easier and she does feel like neck ROM is somewhat improved. PT-OP-K Range of Motion Start: 01/04/18 11:29 Freq: Status: Active Protocol: Document 01/25/18 11:15 [facility] (Rec: 01/27/18 13:25 [facility] [email or web address]) Cervical Spine Range of Motion Cervical Spine Active Degrees Testing Position Sitting Flexion 46 Extension 26 Rotation Left 26 Rotation Right 31 Lateral Flexion Left 18 Lateral Flexion Right 20 ROM Limitations Soft Tissue Tightness Bony Restriction Comments Initial ROM on 10/25/2017: flexion 31 deg, extension 9 deg, L rotation 14 deg,R rotation 17 deg, L SB 12 deg, R SB 8 deg. PT-OP-M Strength Start: 01/27/18 13:02 Freq: Status: Active Protocol: Document 01/25/18 11:15 [facility] (Rec: 01/27/18 13:25 [facility] [email or web address]) Scapula Strength Scapula Manual Muscle Testing Right Elevation (C4) 5 Normal Left Elevation (C4) 5 Normal Shoulder Strength Shoulder Manual Muscle Testing Right Flexion 5 Normal Abduction (C5) 4+ Good+ External Rotation 5 Normal Internal Rotation 5 Normal Left Flexion 5 Normal Abduction (C5) 4+ Good+ External Rotation 5 Normal Internal Rotation 5 Normal Elbow/Forearm Strength Elbow and Forearm Manual Muscle Testing Right Flexion (C6) 5 Normal Extension (C7) 5 Normal Left Flexion (C6) 4+ Good+ Extension (C7) 4+ Good+ PT-OP-Q Treatments Start: 01/04/18 10:28 Freq: Status: Active Protocol: Document 03/15/18 11:15 [facility] (Rec: 03/15/18 12:30 [facility] [email or web address]) Manual Therapy Treatment Soft Tissue Mobilization 4 Body Location Upper trapezius Mobilization Type Sustained Pressure Intensity/Depth Moderate Body Position Supine Comments 5 min. 3 Body Location Levator scapula Mobilization Type Rolling Intensity/Depth Moderate Body Position Supine Comments 4 min 2 Body Location suboccipitals Mobilization Type Rolling Intensity/Depth Moderate Body Position Supine Comments 5 min 1 Body Location Scalenes Mobilization Type Rolling Intensity/Depth Moderate Body Position Supine Comments 4 min Joint Mobilizations 1 Joint C3-5 Direction bilateral Grade III Body Position Supine Reps/Duration 5 min Comments Side-gliding. PT-OP-R Modalities Start: 01/04/18 10:28 Freq: Status: Active Protocol: Document 03/15/18 11:15 [facility] (Rec: 03/15/18 12:30 [facility] [email or web address]) Hot Pack/Cold Pack Treatment Hot Pack Location cervical Patient Position Supine Treatment Duration (minutes) 15 Patient Tolerance Good Comments mickeystca PT-OP-T Assessment and Plan Start: 01/04/18 10:28 Freq: Status: Active Protocol: Document 03/15/18 11:15 [facility] (Rec: 03/15/18 12:30 [facility] [email or web address]) Physical Therapy Assessment Assessment Summary Assessment Pt with less tension noted in the levator this session, but still relatively restricted with soft tissue and joint mobility. Physical Therapy Plan Frequency and Duration Frequency of Treatment 1x/Week Duration of Treatment 12 wks Plan of Care Start Date 01/25/18 Plan of Care End Date 04/19/18 Next Visit Focus/Plan Next Note Type Treatment Note Next Visit Plan advance self-stretch/HEP
--- NOTE | 2018-03-22 11:15 | PT.OTN ---
Current Diagnoses Muscle weakness (generalized) (03/22/18) Other abnormalities of gait and mobility (03/22/18) Abnormal posture (03/22/18) Unspecified displaced fracture of second cervical vertebra, subsequent encounter for fracture with routine healing (03/22/18) Physical Therapy Treatment Note PT-OP-A Visit Information Start: 01/04/18 10:28 Freq: Status: Active Protocol: Document 03/22/18 11:18 RCC (Rec: 03/22/18 15:36 RCC [email or web address]) Out-Patient Physical Therapy Visit Information Visit Information Visit Type Treatment Note Visit Start Time 10:35 Visit Stop Time 11:18 Total Visit Minutes 43 Visit Number 18 Number of RETAIL COVERAGE MERCHANDISER LEAD Visits 0 Evaluation Information Evaluation Date 10/25/17 PT-OP-C Subjective Start: 01/04/18 10:28 Freq: Status: Active Protocol: Document 03/15/18 11:15 RCC (Rec: 03/15/18 12:30 RCC [email or web address]) OP-PT Subjective Patient Comments Patient Comments Pt notes that driving is somewhat easier and she does feel like neck ROM is somewhat improved. PT-OP-K Range of Motion Start: 01/04/18 11:29 Freq: Status: Active Protocol: Document 01/25/18 11:15 RCC (Rec: 01/27/18 13:25 RCC [email or web address]) Cervical Spine Range of Motion Cervical Spine Active Degrees Testing Position Sitting Flexion 46 Extension 26 Rotation Left 26 Rotation Right 31 Lateral Flexion Left 18 Lateral Flexion Right 20 ROM Limitations Soft Tissue Tightness Bony Restriction Comments Initial ROM on 10/25/2017: flexion 31 deg, extension 9 deg, L rotation 14 deg,R rotation 17 deg, L SB 12 deg, R SB 8 deg. PT-OP-M Strength Start: 01/27/18 13:02 Freq: Status: Active Protocol: Document 01/25/18 11:15 RCC (Rec: 01/27/18 13:25 RCC [email or web address]) Scapula Strength Scapula Manual Muscle Testing Right Elevation (C4) 5 Normal Left Elevation (C4) 5 Normal Shoulder Strength Shoulder Manual Muscle Testing Right Flexion 5 Normal Abduction (C5) 4+ Good+ External Rotation 5 Normal Internal Rotation 5 Normal Left Flexion 5 Normal Abduction (C5) 4+ Good+ External Rotation 5 Normal Internal Rotation 5 Normal Elbow/Forearm Strength Elbow and Forearm Manual Muscle Testing Right Flexion (C6) 5 Normal Extension (C7) 5 Normal Left Flexion (C6) 4+ Good+ Extension (C7) 4+ Good+ PT-OP-Q Treatments Start: 01/04/18 10:28 Freq: Status: Active Protocol: Document 03/22/18 11:18 RCC (Rec: 03/22/18 15:36 [facility] [email or web address]) Cardio Equipment Recumbent Elliptical (Biodex) Duration (Minutes) 8 Resistance 1 Manual Therapy Treatment Soft Tissue Mobilization 4 Body Location Upper trapezius Mobilization Type Sustained Pressure Intensity/Depth Moderate Body Position Supine Comments 2 min. 3 Body Location Levator scapula Mobilization Type Rolling Intensity/Depth Moderate Body Position Supine Comments 4 min 2 Body Location suboccipitals Mobilization Type Rolling Intensity/Depth Moderate Body Position Supine Comments 4 min 1 Body Location Scalenes Mobilization Type Rolling Intensity/Depth Moderate Body Position Supine Comments 4 min Joint Mobilizations 1 Joint C3-5 Direction bilateral Grade III Body Position Supine Reps/Duration 6 min Comments Side-gliding. PT-OP-R Modalities Start: 01/04/18 10:28 Freq: Status: Active Protocol: Document 03/22/18 11:18 RCC (Rec: 03/22/18 15:36 [facility] [email or web address]) Hot Pack/Cold Pack Treatment Hot Pack Location cervical Patient Position Supine Treatment Duration (minutes) 15 Patient Tolerance Good Comments bolster PT-OP-T Assessment and Plan Start: 01/04/18 10:28 Freq: Status: Active Protocol: Document 03/22/18 11:18 RCC (Rec: 03/22/18 15:36 [facility] [email or web address]) Physical Therapy Assessment Assessment Summary Assessment Pt with mild pinching in R lower cervical spine, eliminated with manual therapy of the scalenes. Pt is now driving, improving with function but still limited with ROM. Physical Therapy Plan Frequency and Duration Frequency of Treatment 1x/Week Duration of Treatment 12 wks Plan of Care Start Date 01/25/18 Plan of Care End Date 04/19/18 Next Visit Focus/Plan Next Note Type Treatment Note Next Visit Plan review objective measures next visit.
--- NOTE | 2018-03-29 11:15 | PT.OPPOC ---
Current Diagnoses Muscle weakness (generalized) (03/29/18) Other abnormalities of gait and mobility (03/29/18) Abnormal posture (03/29/18) Unspecified displaced fracture of second cervical vertebra, subsequent encounter for fracture with routine healing (03/29/18) Provider Visit Care Team Role Provider Type Nicholas Ballesteros MD Family Provider Non-Staff Primary Care Provider Specialty: Medical Address: [address] [place] [address], [id number] Email: Annette Brown PA-C Attending Provider Non-Staff Specialty: Medical Address: [address] [place] [address], [facility] Email: Plan Of Care PT-OP-T Assessment and Plan Start: 01/04/18 10:28 Freq: Status: Active Protocol: Document 03/29/18 11:15 RCC (Rec: 03/29/18 11:46 RCC [email or web address]) Physical Therapy Assessment Goals Five Impairment Neck strength Field Contact Person Goal (LTG) Pt will be able to perform supine<->sit without UE assist on head for support prior to d/c. (goal achieved) LTG Duration 12 weeks Four Impairment UE strength Field Contact Person Goal (LTG) Bilateral Elbow flexion and extension 5/ 5 Shoulder abduction, extension, ER, flexion, IR 5/5 LTG Duration 12 weeks Three Impairment Lack appropriate HEP Field Contact Person Goal (LTG) Indep. with HEP LTG Duration 12 weeks Two Impairment cervical spine ROM Field Contact Person Goal (LTG) AROM: extension 35 deg flexion 50 deg rotation L 50 deg rotation R 50 deg side bend L 30 deg side bend R 30 deg LTG Duration 12 weeks One Impairment Unable to drive Field Contact Person Goal (LTG) Pt will report improved ability to head-check while driving prior to d/c. LTG Duration 12 weeks Progress Towards Goals Progress Towards Goals Slow Progress - Other Progress Comments slow progression but is improving with cervical ROM. Pt is driving, but would like to improve her head-check Assessment Summary Assessment Pt continues to require extensive manual therapy during sessions to progress her ROM due to prolonged immobilization leading to both soft tissue and joint restrictions in the cervical spine. She will continue to greatly benefit from skilled outpatient physical therapy to progress her ROM and improve her functional independence with activities. Physical Therapy Plan Frequency and Duration Frequency of Treatment 1x/Week Duration of Treatment 10 wks Plan of Care Start Date 03/29/18 Plan of Care End Date 06/28/18 Therapeutic Interventions Therapeutic Interventions Aquatic Therapy Balance Training Gait Training Home Exercise Program Joint Mobilizations Manual Therapy Neuromuscular Re-education Patient/Caregiver Education Self-Care/Home Management Soft Tissue Mobilization Therapeutic Activities Therapeutic Exercises Modalities Cold Pack/Ice Massage Electric Stimulation Hot Packs Traction- Mechanical Ultrasound Next Visit Focus/Plan Next Note Type Treatment Note Next Visit Plan check ROM, progress UE strength and cervical ROM. Plan of Care Dates Plan of Care Start Date 03/29/18 Plan of Care End Date 06/28/18 Please Sign and Return: I have reviewed this Plan of Care and certify that the skilled therapy services above are required to meet the patient?s needs. Physician Signature Date Printed Name and Credentials Clinical Instructor Signature Printed Name and Credentials
--- NOTE | 2018-03-29 11:15 | PT.OTN ---
Current Diagnoses Muscle weakness (generalized) (03/29/18) Other abnormalities of gait and mobility (03/29/18) Abnormal posture (03/29/18) Unspecified displaced fracture of second cervical vertebra, subsequent encounter for fracture with routine healing (03/29/18) Physical Therapy Treatment Note PT-OP-A Visit Information Start: 01/04/18 10:28 Freq: Status: Active Protocol: Document 03/29/18 11:15 RCC (Rec: 03/29/18 11:46 RCC [email or web address]) Out-Patient Physical Therapy Visit Information Visit Information Visit Type Treatment Note Visit Start Time 10:30 Visit Stop Time 11:15 Total Visit Minutes 45 Visit Number 19 Number of VP OF D[employer]ETING Visits 0 Evaluation Information Evaluation Date 10/25/17 PT-OP-B Current Condition Start: 03/29/18 11:27 Freq: Status: Active Protocol: Document 03/29/18 11:15 RCC (Rec: 03/29/18 11:46 RCC [email or web address]) Current Condition History of Current Condition Onset Date 04/11/2017 History of Current Condition Pt had a fall on 04/11/2017 while in [place], found to have a type 2 odontoid fx. She wore a [place]-J collar since fx , discharged collar in 2017. Pt reports difficulty with sewing, reaching overhead , unable to drive. Prior Treatments and Tests prolonged immobilization with [place] J collar, no surgical intervention for type 2 odontoid fx. Treatment Goals Patient/Caregiver Goals return to driving, be able to safely head check and return to sewing without restrictions. PT-OP-C Subjective Start: 01/04/18 10:28 Freq: Status: Active Protocol: Document 03/29/18 11:15 RCC (Rec: 03/29/18 11:46 RCC [email or web address]) OP-PT Subjective Patient Comments Patient Comments Pt reports that she is driving , but takes less busy routes in town. She was able to vacuum, but had increased soreness in her UEs the next day. PT-OP-K Range of Motion Start: 01/04/18 11:29 Freq: Status: Active Protocol: Document 03/29/18 11:15 RCC (Rec: 03/29/18 11:46 RCC [email or web address]) Cervical Spine Range of Motion Cervical Spine Active Degrees Testing Position Sitting Flexion 48 Extension 30 Rotation Left 34 Rotation Right 31 Lateral Flexion Left 20 Lateral Flexion Right 22 ROM Limitations Soft Tissue Tightness Contracture Bony Restriction PT-OP-M Strength Start: 01/27/18 13:02 Freq: Status: Active Protocol: Document 01/25/18 11:15 RCC (Rec: 01/27/18 13:25 RCC [email or web address]) Scapula Strength Scapula Manual Muscle Testing Right Elevation (C4) 5 Normal Left Elevation (C4) 5 Normal Shoulder Strength Shoulder Manual Muscle Testing Right Flexion 5 Normal Abduction (C5) 4+ Good+ External Rotation 5 Normal Internal Rotation 5 Normal Left Flexion 5 Normal Abduction (C5) 4+ Good+ External Rotation 5 Normal Internal Rotation 5 Normal Elbow/Forearm Strength Elbow and Forearm Manual Muscle Testing Right Flexion (C6) 5 Normal Extension (C7) 5 Normal Left Flexion (C6) 4+ Good+ Extension (C7) 4+ Good+ PT-OP-Q Treatments Start: 01/04/18 10:28 Freq: Status: Active Protocol: Document 03/29/18 11:15 RCC (Rec: 03/29/18 11:46 RCC [email or web address]) Manual Therapy Treatment Soft Tissue Mobilization 4 Body Location Upper trapezius Mobilization Type Sustained Pressure Intensity/Depth Moderate Body Position Supine Comments 2 min. 3 Body Location Levator scapula Mobilization Type Rolling Intensity/Depth Moderate Body Position Supine Comments 4 min 2 Body Location suboccipitals Mobilization Type Rolling Intensity/Depth Moderate Body Position Supine Comments 6 min 1 Body Location Scalenes Mobilization Type Rolling Intensity/Depth Moderate Body Position Supine Comments 8 min Joint Mobilizations 1 Joint C3-5 Direction bilateral Grade III Body Position Supine Reps/Duration 5 min Comments Side-gliding. Other Other Manual Treatments cervical spine AROM testing- 5 min PT-OP-R Modalities Start: 01/04/18 10:28 Freq: Status: Active Protocol: Document 03/29/18 11:15 RCC (Rec: 03/29/18 11:46 RCC [email or web address]) Hot Pack/Cold Pack Treatment Hot Pack Location cervical Patient Position Supine Treatment Duration (minutes) 15 Patient Tolerance Good Comments [email or web address] PT-OP-T Assessment and Plan Start: 01/04/18 10:28 Freq: Status: Active Protocol: Document 03/29/18 11:15 RCC (Rec: 03/29/18 11:46 RCC [email or web address]) Physical Therapy Assessment Goals Five Impairment Neck strength Fpc Goal (LTG) Pt will be able to perform supine<->sit without UE assist on head for support prior to d/c. (goal achieved) LTG Duration 12 weeks Four Impairment UE strength Computer Assembler Goal (LTG) Bilateral Elbow flexion and extension 5/ 5 Shoulder abduction, extension, ER, flexion, IR 5/5 LTG Duration 12 weeks Three Impairment Lack appropriate HEP Fpc Goal (LTG) Indep. with HEP LTG Duration 12 weeks Two Impairment cervical spine ROM Computer Assembler Goal (LTG) AROM: extension 35 deg flexion 50 deg rotation L 50 deg rotation R 50 deg side bend L 30 deg side bend R 30 deg LTG Duration 12 weeks One Impairment Unable to drive Computer Assembler Goal (LTG) Pt will report improved ability to head-check while driving prior to d/c. LTG Duration 12 weeks Progress Towards Goals Progress Towards Goals Slow Progress - Other Progress Comments slow progression but is improving with cervical ROM. Pt is driving, but would like to improve her head-check Assessment Summary Assessment Pt continues to require extensive manual therapy during sessions to progress her ROM due to prolonged immobilization leading to both soft tissue and joint restrictions in the cervical spine. She will continue to greatly benefit from skilled outpatient physical therapy to progress her ROM and improve her functional independence with activities. Physical Therapy Plan Frequency and Duration Frequency of Treatment 1x/Week Duration of Treatment 10 wks Plan of Care Start Date 03/29/18 Plan of Care End Date 06/28/18 Therapeutic Interventions Therapeutic Interventions Aquatic Therapy Balance Training Gait Training Home Exercise Program Joint Mobilizations Manual Therapy Neuromuscular Re-education Patient/Caregiver Education Self-Care/Home Management Soft Tissue Mobilization Therapeutic Activities Therapeutic Exercises Modalities Cold Pack/Ice Massage Electric Stimulation Hot Packs Traction- Mechanical Ultrasound Next Visit Focus/Plan Next Note Type Treatment Note Next Visit Plan check ROM, progress UE strenth and cervical ROM.
--- NOTE | 2018-05-10 11:15 | PT.OTN ---
Current Diagnoses Muscle weakness (generalized) (05/10/18) Other abnormalities of gait and mobility (05/10/18) Abnormal posture (05/10/18) Unspecified displaced fracture of second cervical vertebra, subsequent encounter for fracture with routine healing (05/10/18) Physical Therapy Treatment Note PT-OP-A Visit Information Start: 01/04/18 10:28 Freq: Status: Active Protocol: Document 05/10/18 11:15 RCC (Rec: 05/10/18 14:22 RCC [email or web address]) Out-Patient Physical Therapy Visit Information Visit Information Visit Type Treatment Note Visit Start Time 10:35 Visit Stop Time 11:15 Total Visit Minutes 40 Visit Number 20 Number of BUTTON TACKER Visits 0 Evaluation Information Evaluation Date 10/25/17 PT-OP-B Current Condition Start: 03/29/18 11:27 Freq: Status: Active Protocol: Document 03/29/18 11:15 RCC (Rec: 03/29/18 11:46 RCC [email or web address]) Current Condition History of Current Condition Onset Date 04/11/2017 History of Current Condition Pt had a fall on 04/11/2017 while in [place], found to have a type 2 odontoid fx. She wore a [place]-J collar since fx , discharged collar in 2017. Pt reports difficulty with sewing, reaching overhead , unable to drive. Prior Treatments and Tests prolonged immobilization with [place] J collar, no surgical intervention for type 2 odontoid fx. Treatment Goals Patient/Caregiver Goals return to driving, be able to safely head check and return to sewing without restrictions. PT-OP-C Subjective Start: 01/04/18 10:28 Freq: Status: Active Protocol: Document 05/10/18 11:15 RCC (Rec: 05/10/18 14:22 RCC [email or web address]) OP-PT Subjective Patient Comments Patient Comments Pt states that she has felt a little more stiffness in the neck over the past few weeks. PT-OP-K Range of Motion Start: 01/04/18 11:29 Freq: Status: Active Protocol: Document 05/10/18 11:15 RCC (Rec: 05/10/18 14:22 RCC [email or web address]) Cervical Spine Range of Motion Cervical Spine Active Degrees Testing Position Sitting Flexion 45 Extension 32 Rotation Left 30 Rotation Right 28 Lateral Flexion Left 22 Lateral Flexion Right 20 ROM Limitations Soft Tissue Tightness Contracture Bony Restriction PT-OP-M Strength Start: 01/27/18 13:02 Freq: Status: Active Protocol: Document 01/25/18 11:15 RCC (Rec: 01/27/18 13:25 RCC [email or web address]) Scapula Strength Scapula Manual Muscle Testing Right Elevation (C4) 5 Normal Left Elevation (C4) 5 Normal Shoulder Strength Shoulder Manual Muscle Testing Right Flexion 5 Normal Abduction (C5) 4+ Good+ External Rotation 5 Normal Internal Rotation 5 Normal Left Flexion 5 Normal Abduction (C5) 4+ Good+ External Rotation 5 Normal Internal Rotation 5 Normal Elbow/Forearm Strength Elbow and Forearm Manual Muscle Testing Right Flexion (C6) 5 Normal Extension (C7) 5 Normal Left Flexion (C6) 4+ Good+ Extension (C7) 4+ Good+ PT-OP-Q Treatments Start: 01/04/18 10:28 Freq: Status: Active Protocol: Document 05/10/18 11:15 RCC (Rec: 05/10/18 14:22 [facility] [email or web address]) Manual Therapy Treatment Soft Tissue Mobilization 3 Body Location Levator scapula Mobilization Type Rolling Intensity/Depth Moderate Body Position Supine 2 Body Location suboccipitals Mobilization Type Rolling Intensity/Depth Moderate Body Position Supine 1 Body Location Scalenes Mobilization Type Rolling Intensity/Depth Moderate Body Position Supine Joint Mobilizations 1 Joint C3-5 Direction bilateral Grade III Body Position Supine Reps/Duration 5 min Comments Side-gliding. PT-OP-R Modalities Start: 01/04/18 10:28 Freq: Status: Active Protocol: Document 05/10/18 11:15 RCC (Rec: 05/10/18 14:22 RCC [email or web address]) Hot Pack/Cold Pack Treatment Hot Pack Location cervical Patient Position Supine Treatment Duration (minutes) 15 Patient Tolerance Good Comments bolster PT-OP-T Assessment and Plan Start: 01/04/18 10:28 Freq: Status: Active Protocol: Document 05/10/18 11:15 RCC (Rec: 05/10/18 14:22 RCC [email or web address]) Physical Therapy Assessment Assessment Summary Assessment Pt with slight decrease in L cervical rotation since last session, but other motions within similar range as taken on 03/29/2018. Pt has not attended physical therapy appointment since 03/29/2018, which is a good sign to not have significant loss of motion, but she has made no progress with individual HEP. Due to these findings, it is recommended that pt continue with skilled PT intervention to progress her ROM, perform manual techniques, education, and strength training, as well as improve her overall functional independence. Physical Therapy Plan Frequency and Duration Frequency of Treatment 1x/Week Duration of Treatment 10 wks Plan of Care Start Date 03/29/18 Plan of Care End Date 06/28/18 Next Visit Focus/Plan Next Note Type Treatment Note Next Visit Plan prog. c/s ROM, STR, posture.
--- NOTE | 2018-05-17 11:15 | PT.OTN ---
Current Diagnoses Muscle weakness (generalized) (05/17/18) Other abnormalities of gait and mobility (05/17/18) Abnormal posture (05/17/18) Unspecified displaced fracture of second cervical vertebra, subsequent encounter for fracture with routine healing (05/17/18) Physical Therapy Treatment Note PT-OP-A Visit Information Start: 01/04/18 10:28 Freq: Status: Active Protocol: Document 05/17/18 10:40 RCC (Rec: 05/17/18 10:44 RCC [email or web address]) Out-Patient Physical Therapy Visit Information Visit Information Visit Type Treatment Note Visit Start Time 10:30 Visit Stop Time 11:15 Total Visit Minutes 45 Visit Number 21 Number of LIFE ENRICHMENT SPECIALIST Visits 0 Evaluation Information Evaluation Date 10/25/17 PT-OP-B Current Condition Start: 03/29/18 11:27 Freq: Status: Active Protocol: Document 03/29/18 11:15 RCC (Rec: 03/29/18 11:46 RCC [email or web address]) Current Condition History of Current Condition Onset Date 04/11/2017 History of Current Condition Pt had a fall on 04/11/2017 while in [place], found to have a type 2 odontoid fx. She wore a [place]-J collar since fx , discharged collar in 2017. Pt reports difficulty with sewing, reaching overhead , unable to drive. Prior Treatments and Tests prolonged immobilization with [place] J collar, no surgical intervention for type 2 odontoid fx. Treatment Goals Patient/Caregiver Goals return to driving, be able to safely head check and return to sewing without restrictions. PT-OP-C Subjective Start: 01/04/18 10:28 Freq: Status: Active Protocol: Document 05/17/18 10:40 RCC (Rec: 05/17/18 10:44 RCC [email or web address]) OP-PT Subjective Patient Comments Patient Comments No new complaints. PT-OP-K Range of Motion Start: 01/04/18 11:29 Freq: Status: Active Protocol: Document 05/10/18 11:15 RCC (Rec: 05/10/18 14:22 RCC [email or web address]) Cervical Spine Range of Motion Cervical Spine Active Degrees Testing Position Sitting Flexion 45 Extension 32 Rotation Left 30 Rotation Right 28 Lateral Flexion Left 22 Lateral Flexion Right 20 ROM Limitations Soft Tissue Tightness Contracture Bony Restriction PT-OP-M Strength Start: 01/27/18 13:02 Freq: Status: Active Protocol: Document 01/25/18 11:15 RCC (Rec: 01/27/18 13:25 RCC [email or web address]) Scapula Strength Scapula Manual Muscle Testing Right Elevation (C4) 5 Normal Left Elevation (C4) 5 Normal Shoulder Strength Shoulder Manual Muscle Testing Right Flexion 5 Normal Abduction (C5) 4+ Good+ External Rotation 5 Normal Internal Rotation 5 Normal Left Flexion 5 Normal Abduction (C5) 4+ Good+ External Rotation 5 Normal Internal Rotation 5 Normal Elbow/Forearm Strength Elbow and Forearm Manual Muscle Testing Right Flexion (C6) 5 Normal Extension (C7) 5 Normal Left Flexion (C6) 4+ Good+ Extension (C7) 4+ Good+ PT-OP-Q Treatments Start: 01/04/18 10:28 Freq: Status: Active Protocol: Document 05/17/18 10:40 RCC (Rec: 05/17/18 10:44 RCC [email or web address]) Therapeutic Exercises Sitting Exercises 1 Sitting Exercise Name diagnols with head/eye follow Side bilateral Reps/Minutes 10 each Standing Exercises 2 Standing Exercise Name pec stretch in doorway Side bilateral 1 Standing Exercise Name shoulder extension and scapular retraction Side bilateral Resistance L1 Manual Therapy Treatment Soft Tissue Mobilization 3 Body Location Levator scapula Mobilization Type Rolling Intensity/Depth Moderate Body Position Supine 2 Body Location suboccipitals Mobilization Type Rolling Intensity/Depth Moderate Body Position Supine 1 Body Location Scalenes Mobilization Type Rolling Intensity/Depth Moderate Body Position Supine Joint Mobilizations 1 Joint C3-5 Direction bilateral Grade III Body Position Supine Reps/Duration 5 min Comments Side-gliding. PT-OP-R Modalities Start: 01/04/18 10:28 Freq: Status: Active Protocol: Document 05/17/18 10:40 RCC (Rec: 05/17/18 10:44 RCC [email or web address]) Hot Pack/Cold Pack Treatment Hot Pack Location cervical Patient Position Supine Treatment Duration (minutes) 10 Patient Tolerance Good Comments [email or web address] PT-OP-T Assessment and Plan Start: 01/04/18 10:28 Freq: Status: Active Protocol: Document 05/17/18 10:40 RCC (Rec: 05/17/18 10:44 RCC [email or web address]) Physical Therapy Assessment Assessment Summary Assessment Pt tolerated increased exercises today with VC required for proper head on neck positioning/posture. Physical Therapy Plan Frequency and Duration Frequency of Treatment 1x/Week Duration of Treatment 10 wks Plan of Care Start Date 03/29/18 Plan of Care End Date 06/28/18 Next Visit Focus/Plan Next Note Type Treatment Note Next Visit Plan continue to progress posture, cervical ROM, scapular strengthening.
--- NOTE | 2018-05-24 11:15 | PT.OTN ---
Current Diagnoses Muscle weakness (generalized) (05/24/18) Other abnormalities of gait and mobility (05/24/18) Abnormal posture (05/24/18) Unspecified displaced fracture of second cervical vertebra, subsequent encounter for fracture with routine healing (05/24/18) Physical Therapy Treatment Note PT-OP-A Visit Information Start: 01/04/18 10:28 Freq: Status: Active Protocol: Document 05/24/18 11:15 RCC (Rec: 05/24/18 13:46 RCC [email or web address]) Out-Patient Physical Therapy Visit Information Visit Information Visit Type Treatment Note Visit Start Time 10:32 Visit Stop Time 11:15 Total Visit Minutes 43 Visit Number 22 Number of GRAVITY PROSPECTING OPERATOR Visits 0 Evaluation Information Evaluation Date 10/25/17 PT-OP-B Current Condition Start: 03/29/18 11:27 Freq: Status: Active Protocol: Document 03/29/18 11:15 RCC (Rec: 03/29/18 11:46 RCC [email or web address]) Current Condition History of Current Condition Onset Date 04/11/2017 History of Current Condition Pt had a fall on 04/11/2017 while in [place], found to have a type 2 odontoid fx. She wore a [place]-J collar since fx , discharged collar in 2017. Pt reports difficulty with sewing, reaching overhead , unable to drive. Prior Treatments and Tests prolonged immobilization with [place] J collar, no surgical intervention for type 2 odontoid fx. Treatment Goals Patient/Caregiver Goals return to driving, be able to safely head check and return to sewing without restrictions. PT-OP-C Subjective Start: 01/04/18 10:28 Freq: Status: Active Protocol: Document 05/24/18 11:15 RCC (Rec: 05/24/18 13:46 RCC [email or web address]) OP-PT Subjective Patient Comments Patient Comments Pt states she lost the part of her resistance bands that go into the door. She is still experiencing some cracking with prolonged quilting, happening 3x/wk. PT-OP-K Range of Motion Start: 01/04/18 11:29 Freq: Status: Active Protocol: Document 05/10/18 11:15 RCC (Rec: 05/10/18 14:22 RCC [email or web address]) Cervical Spine Range of Motion Cervical Spine Active Degrees Testing Position Sitting Flexion 45 Extension 32 Rotation Left 30 Rotation Right 28 Lateral Flexion Left 22 Lateral Flexion Right 20 ROM Limitations Soft Tissue Tightness Contracture Bony Restriction PT-OP-M Strength Start: 01/27/18 13:02 Freq: Status: Active Protocol: Document 01/25/18 11:15 RCC (Rec: 01/27/18 13:25 RCC [email or web address]) Scapula Strength Scapula Manual Muscle Testing Right Elevation (C4) 5 Normal Left Elevation (C4) 5 Normal Shoulder Strength Shoulder Manual Muscle Testing Right Flexion 5 Normal Abduction (C5) 4+ Good+ External Rotation 5 Normal Internal Rotation 5 Normal Left Flexion 5 Normal Abduction (C5) 4+ Good+ External Rotation 5 Normal Internal Rotation 5 Normal Elbow/Forearm Strength Elbow and Forearm Manual Muscle Testing Right Flexion (C6) 5 Normal Extension (C7) 5 Normal Left Flexion (C6) 4+ Good+ Extension (C7) 4+ Good+ PT-OP-Q Treatments Start: 01/04/18 10:28 Freq: Status: Active Protocol: Document 05/24/18 11:15 RCC (Rec: 05/24/18 13:46 RCC [email or web address]) Therapeutic Exercises Standing Exercises Diagonals Standing Exercise Name diagonals with head/eye following hand Side bilateral Resistance L1 Reps/Minutes 10 each 1 Standing Exercise Name shoulder extension and scapular retraction Side bilateral Resistance L2 Reps/Minutes 20 each Manual Therapy Treatment Soft Tissue Mobilization 3 Body Location Levator scapula Mobilization Type Rolling Intensity/Depth Moderate Body Position Supine 1 Body Location Scalenes Mobilization Type Rolling Intensity/Depth Moderate Body Position Supine Joint Mobilizations 1 Joint C3-5 Direction bilateral Grade III Body Position Supine Reps/Duration 5 min Comments Side-gliding. Manual Techniques 1 Type PROM- cervical SB and rotation bilateral Body Location cervical Body Position Hooklying Reps/Duration 5 each PT-OP-R Modalities Start: 01/04/18 10:28 Freq: Status: Active Protocol: Document 05/24/18 11:15 RCC (Rec: 05/24/18 13:46 RCC [email or web address]) Hot Pack/Cold Pack Treatment Hot Pack Location cervical Patient Position Supine Treatment Duration (minutes) 10 Patient Tolerance Good Comments mickeyster PT-OP-T Assessment and Plan Start: 01/04/18 10:28 Freq: Status: Active Protocol: Document 05/24/18 11:15 RCC (Rec: 05/24/18 13:46 RCC [email or web address]) Physical Therapy Assessment Assessment Summary Assessment No c/o cracking or pain with head movements today, but still significantly limited ROM due to muscular tension and joint hypomobility. Physical Therapy Plan Frequency and Duration Frequency of Treatment 1x/Week Duration of Treatment 10 wks Plan of Care Start Date 03/29/18 Plan of Care End Date 06/28/18 Next Visit Focus/Plan Next Note Type Treatment Note Next Visit Plan posture, progress cervical ROM as toelrated.
--- NOTE | 2018-05-31 11:14 | PT.OTN ---
Current Diagnoses Muscle weakness (generalized) (05/31/18) Other abnormalities of gait and mobility (05/31/18) Abnormal posture (05/31/18) Unspecified displaced fracture of second cervical vertebra, subsequent encounter for fracture with routine healing (05/31/18) Physical Therapy Treatment Note PT-OP-A Visit Information Start: 01/04/18 10:28 Freq: Status: Active Protocol: Document 05/31/18 11:14 RCC (Rec: 05/31/18 12:43 [email or web address]) Out-Patient Physical Therapy Visit Information Visit Information Visit Type Treatment Note Visit Note KX Visit Start Time 10:30 Visit Stop Time 11:14 Total Visit Minutes 44 Visit Number 23 Number of INSPECTING ENGINEER Visits 0 Evaluation Information Evaluation Date 10/25/17 PT-OP-B Current Condition Start: 03/29/18 11:27 Freq: Status: Active Protocol: Document 03/29/18 11:15 RCC (Rec: 03/29/18 11:46 RCC [email or web address]) Current Condition History of Current Condition Onset Date 04/11/2017 History of Current Condition Pt had a fall on 04/11/2017 while in [place], found to have a type 2 odontoid fx. She wore a [place]-J collar since fx , discharged collar in 2017. Pt reports difficulty with sewing, reaching overhead , unable to drive. Prior Treatments and Tests prolonged immobilization with [place] J collar, no surgical intervention for type 2 odontoid fx. Treatment Goals Patient/Caregiver Goals return to driving, be able to safely head check and return to sewing without restrictions. PT-OP-C Subjective Start: 01/04/18 10:28 Freq: Status: Active Protocol: Document 05/31/18 11:14 RCC (Rec: 05/31/18 12:43 RCC [email or web address]) OP-PT Subjective Patient Comments Patient Comments Pt has been quilting more with less cracking/stiffness but still difficulty with looking side to side. PT-OP-K Range of Motion Start: 01/04/18 11:29 Freq: Status: Active Protocol: Document 05/10/18 11:15 RCC (Rec: 05/10/18 14:22 RCC [email or web address]) Cervical Spine Range of Motion Cervical Spine Active Degrees Testing Position Sitting Flexion 45 Extension 32 Rotation Left 30 Rotation Right 28 Lateral Flexion Left 22 Lateral Flexion Right 20 ROM Limitations Soft Tissue Tightness Contracture Bony Restriction PT-OP-M Strength Start: 01/27/18 13:02 Freq: Status: Active Protocol: Document 01/25/18 11:15 RCC (Rec: 01/27/18 13:25 RCC [email or web address]) Scapula Strength Scapula Manual Muscle Testing Right Elevation (C4) 5 Normal Left Elevation (C4) 5 Normal Shoulder Strength Shoulder Manual Muscle Testing Right Flexion 5 Normal Abduction (C5) 4+ Good+ External Rotation 5 Normal Internal Rotation 5 Normal Left Flexion 5 Normal Abduction (C5) 4+ Good+ External Rotation 5 Normal Internal Rotation 5 Normal Elbow/Forearm Strength Elbow and Forearm Manual Muscle Testing Right Flexion (C6) 5 Normal Extension (C7) 5 Normal Left Flexion (C6) 4+ Good+ Extension (C7) 4+ Good+ PT-OP-Q Treatments Start: 01/04/18 10:28 Freq: Status: Active Protocol: Document 05/31/18 11:14 [facility] (Rec: 05/31/18 12:43 RCC [email or web address]) Therapeutic Exercises Supine Exercises UT stretch Supine Exercise Name upper trapezius stretch Side bilateral scapular retraction Supine Exercise Name scapular retraction/pinching Side bilateral Reps/Minutes 10 Comments hold 5 sec Standing Exercises Diagonals Standing Exercise Name diagonals with head/eye following hand Side bilateral Resistance L1 Reps/Minutes 10 each Comments demonstration and tactile cuing, VC for head movements Manual Therapy Treatment Soft Tissue Mobilization 3 Body Location Levator scapula Mobilization Type Rolling Intensity/Depth Moderate Body Position Supine 2 Body Location suboccipitals Mobilization Type Rolling Intensity/Depth Moderate Body Position Supine 1 Body Location Scalenes Mobilization Type Rolling Intensity/Depth Moderate Body Position Supine Joint Mobilizations 1 Joint C3-5 Direction bilateral Grade III Body Position Supine Reps/Duration 6 min Comments Side-gliding. Manual Techniques 1 Type PROM- cervical SB and rotation bilateral Body Location cervical Body Position Hooklying Reps/Duration 5 each PT-OP-R Modalities Start: 01/04/18 10:28 Freq: Status: Active Protocol: Document 05/31/18 11:14 [facility] (Rec: 05/31/18 12:43 RCC [email or web address]) Hot Pack/Cold Pack Treatment Hot Pack Location cervical Patient Position Supine Treatment Duration (minutes) 10 Patient Tolerance Good Comments bolster PT-OP-T Assessment and Plan Start: 01/04/18 10:28 Freq: Status: Active Protocol: Document 05/31/18 11:14 [facility] (Rec: 05/31/18 12:43 RCC [email or web address]) Physical Therapy Assessment Assessment Summary Assessment Improved tolerance with less soft tissue resistance during PROM of the head on the neck with cervical rotation. L rotation still more limited than the R. Physical Therapy Plan Frequency and Duration Frequency of Treatment 1x/Week Duration of Treatment 10 wks Plan of Care Start Date 03/29/18 Plan of Care End Date 06/28/18 Next Visit Focus/Plan Next Note Type Treatment Note Next Visit Plan postural stabilization of spine, cont. to progress stretching/STR/ROM as tolerated.
--- NOTE | 2018-06-07 11:15 | PT.OTN ---
Current Diagnoses Muscle weakness (generalized) (06/07/18) Other abnormalities of gait and mobility (06/07/18) Abnormal posture (06/07/18) Unspecified displaced fracture of second cervical vertebra, subsequent encounter for fracture with routine healing (06/07/18) Physical Therapy Treatment Note PT-OP-A Visit Information Start: 01/04/18 10:28 Freq: Status: Active Protocol: Document 06/07/18 11:15 RCC (Rec: 06/07/18 11:33 RCC [email or web address]) Out-Patient Physical Therapy Visit Information Visit Information Visit Type Treatment Note Visit Note KX Visit Start Time 10:35 Visit Stop Time 11:20 Total Visit Minutes 45 Visit Number 24 Number of PRINTING BINDERY ASSISTANT Visits 0 Evaluation Information Evaluation Date 10/25/17 PT-OP-B Current Condition Start: 03/29/18 11:27 Freq: Status: Active Protocol: Document 03/29/18 11:15 RCC (Rec: 03/29/18 11:46 RCC [email or web address]) Current Condition History of Current Condition Onset Date 04/11/2017 History of Current Condition Pt had a fall on 04/11/2017 while in [place], found to have a type 2 odontoid fx. She wore a [place]-J collar since fx , discharged collar in 2017. Pt reports difficulty with sewing, reaching overhead , unable to drive. Prior Treatments and Tests prolonged immobilization with [place] J collar, no surgical intervention for type 2 odontoid fx. Treatment Goals Patient/Caregiver Goals return to driving, be able to safely head check and return to sewing without restrictions. PT-OP-C Subjective Start: 01/04/18 10:28 Freq: Status: Active Protocol: Document 06/07/18 11:15 RCC (Rec: 06/07/18 11:33 RCC [email or web address]) OP-PT Subjective Patient Comments Patient Comments Pt without c/o cracking today. She does have some increased tension when working on the computer or tablet. PT-OP-K Range of Motion Start: 01/04/18 11:29 Freq: Status: Active Protocol: Document 05/10/18 11:15 RCC (Rec: 05/10/18 14:22 RCC [email or web address]) Cervical Spine Range of Motion Cervical Spine Active Degrees Testing Position Sitting Flexion 45 Extension 32 Rotation Left 30 Rotation Right 28 Lateral Flexion Left 22 Lateral Flexion Right 20 ROM Limitations Soft Tissue Tightness Contracture Bony Restriction PT-OP-M Strength Start: 01/27/18 13:02 Freq: Status: Active Protocol: Document 01/25/18 11:15 RCC (Rec: 01/27/18 13:25 RCC [email or web address]) Scapula Strength Scapula Manual Muscle Testing Right Elevation (C4) 5 Normal Left Elevation (C4) 5 Normal Shoulder Strength Shoulder Manual Muscle Testing Right Flexion 5 Normal Abduction (C5) 4+ Good+ External Rotation 5 Normal Internal Rotation 5 Normal Left Flexion 5 Normal Abduction (C5) 4+ Good+ External Rotation 5 Normal Internal Rotation 5 Normal Elbow/Forearm Strength Elbow and Forearm Manual Muscle Testing Right Flexion (C6) 5 Normal Extension (C7) 5 Normal Left Flexion (C6) 4+ Good+ Extension (C7) 4+ Good+ PT-OP-Q Treatments Start: 01/04/18 10:28 Freq: Status: Active Protocol: Document 06/07/18 11:15 RCC (Rec: 06/07/18 11:33 RCC [email or web address]) Therapeutic Exercises Supine Exercises 1 Supine Exercise Name levator and UT stretch Side bilateral Comments manual Manual Therapy Treatment Soft Tissue Mobilization 3 Body Location Levator scapula Mobilization Type Rolling Intensity/Depth Moderate Body Position Supine 2 Body Location suboccipitals Mobilization Type Rolling Intensity/Depth Moderate Body Position Supine 1 Body Location Scalenes Mobilization Type Rolling Intensity/Depth Moderate Body Position Supine Joint Mobilizations 1 Joint C3-5 Direction bilateral Grade III Body Position Supine Reps/Duration 5 min Comments Side-gliding. PT-OP-R Modalities Start: 01/04/18 10:28 Freq: Status: Active Protocol: Document 06/07/18 11:15 RCC (Rec: 06/07/18 11:33 [facility] [email or web address]) Hot Pack/Cold Pack Treatment Hot Pack Location cervical Patient Position Supine Treatment Duration (minutes) 15 Patient Tolerance Good Comments bolster PT-OP-T Assessment and Plan Start: 01/04/18 10:28 Freq: Status: Active Protocol: Document 06/07/18 11:15 RCC (Rec: 06/07/18 11:33 RCC [email or web address]) Physical Therapy Assessment Assessment Summary Assessment Increased anterior scalene tension on the L, but less tension in R levator today. L still more restricted with cervical rotation compared to the R, and overall high tension in suboccipitals and cervical mm. Physical Therapy Plan Frequency and Duration Frequency of Treatment 1x/Week Duration of Treatment 10 wks Plan of Care Start Date 03/29/18 Plan of Care End Date 06/28/18 Next Visit Focus/Plan Next Note Type Treatment Note Next Visit Plan progress AROM and soft tissue managment, posture.
--- NOTE | 2018-06-14 11:15 | PT.OTN ---
Current Diagnoses Muscle weakness (generalized) (06/14/18) Other abnormalities of gait and mobility (06/14/18) Abnormal posture (06/14/18) Unspecified displaced fracture of second cervical vertebra, subsequent encounter for fracture with routine healing (06/14/18) Physical Therapy Treatment Note PT-OP-A Visit Information Start: 01/04/18 10:28 Freq: Status: Active Protocol: Document 06/14/18 11:15 RCC (Rec: 06/15/18 13:30 RCC [email or web address]) Out-Patient Physical Therapy Visit Information Visit Information Visit Type Treatment Note Visit Note KX Visit Start Time 10:35 Visit Stop Time 11:15 Total Visit Minutes 40 Visit Number 25 Number of LARD MIXER Visits 0 Evaluation Information Evaluation Date 10/25/17 PT-OP-B Current Condition Start: 03/29/18 11:27 Freq: Status: Active Protocol: Document 03/29/18 11:15 RCC (Rec: 03/29/18 11:46 RCC [email or web address]) Current Condition History of Current Condition Onset Date 04/11/2017 History of Current Condition Pt had a fall on 04/11/2017 while in [place], found to have a type 2 odontoid fx. She wore a [place]-J collar since fx , discharged collar in 2017. Pt reports difficulty with sewing, reaching overhead , unable to drive. Prior Treatments and Tests prolonged immobilization with [place] J collar, no surgical intervention for type 2 odontoid fx. Treatment Goals Patient/Caregiver Goals return to driving, be able to safely head check and return to sewing without restrictions. PT-OP-C Subjective Start: 01/04/18 10:28 Freq: Status: Active Protocol: Document 06/14/18 11:15 RCC (Rec: 06/15/18 13:30 RCC [email or web address]) OP-PT Subjective Patient Comments Patient Comments Pt states cracking in neck appears to happen more after therapy, but no pain after it happens. PT-OP-K Range of Motion Start: 01/04/18 11:29 Freq: Status: Active Protocol: Document 05/10/18 11:15 RCC (Rec: 05/10/18 14:22 RCC [email or web address]) Cervical Spine Range of Motion Cervical Spine Active Degrees Testing Position Sitting Flexion 45 Extension 32 Rotation Left 30 Rotation Right 28 Lateral Flexion Left 22 Lateral Flexion Right 20 ROM Limitations Soft Tissue Tightness Contracture Bony Restriction PT-OP-M Strength Start: 01/27/18 13:02 Freq: Status: Active Protocol: Document 01/25/18 11:15 RCC (Rec: 01/27/18 13:25 RCC [email or web address]) Scapula Strength Scapula Manual Muscle Testing Right Elevation (C4) 5 Normal Left Elevation (C4) 5 Normal Shoulder Strength Shoulder Manual Muscle Testing Right Flexion 5 Normal Abduction (C5) 4+ Good+ External Rotation 5 Normal Internal Rotation 5 Normal Left Flexion 5 Normal Abduction (C5) 4+ Good+ External Rotation 5 Normal Internal Rotation 5 Normal Elbow/Forearm Strength Elbow and Forearm Manual Muscle Testing Right Flexion (C6) 5 Normal Extension (C7) 5 Normal Left Flexion (C6) 4+ Good+ Extension (C7) 4+ Good+ PT-OP-Q Treatments Start: 01/04/18 10:28 Freq: Status: Active Protocol: Document 06/14/18 11:15 RCC (Rec: 06/15/18 13:30 RCC [email or web address]) Manual Therapy Treatment Soft Tissue Mobilization 4 Body Location Upper trapezius Mobilization Type Sustained Pressure Intensity/Depth Moderate Body Position Supine 3 Body Location Levator scapula Mobilization Type Rolling Intensity/Depth Moderate Body Position Supine 2 Body Location suboccipitals Mobilization Type Rolling Intensity/Depth Moderate Body Position Supine 1 Body Location Scalenes Mobilization Type Rolling Intensity/Depth Moderate Body Position Supine Joint Mobilizations 1 Joint C3-6 Direction bilateral Grade III Body Position Supine Reps/Duration 6 min Comments Side-gliding. PT-OP-R Modalities Start: 01/04/18 10:28 Freq: Status: Active Protocol: Document 06/14/18 11:15 RCC (Rec: 06/15/18 13:30 RCC [email or web address]) Hot Pack/Cold Pack Treatment Hot Pack Location cervical Patient Position Supine Treatment Duration (minutes) 15 Patient Tolerance Good Comments bolster PT-OP-T Assessment and Plan Start: 01/04/18 10:28 Freq: Status: Active Protocol: Document 06/14/18 11:15 RCC (Rec: 06/15/18 13:30 RCC [email or web address]) Physical Therapy Assessment Assessment Summary Assessment Pt's cracking sensation possibly due to her continued hypomobility of cervical spine and muscle tension, but likely her improved ROM that occurs post-manual therapy to cause joints to move in larger ranges than her normal. Pt continues to have stiffness in the neck, and impaired posture due to her prolonged immobilization of the neck. Physical Therapy Plan Frequency and Duration Frequency of Treatment 1x/Week Duration of Treatment 10 wks Plan of Care Start Date 03/29/18 Plan of Care End Date 06/28/18 Next Visit Focus/Plan Next Note Type Progress Note Next Visit Plan re-assess obj measures.
--- NOTE | 2018-06-28 11:15 | PT.OPPOC ---
Current Diagnoses Muscle weakness (generalized) (06/28/18) Other abnormalities of gait and mobility (06/28/18) Abnormal posture (06/28/18) Unspecified displaced fracture of second cervical vertebra, subsequent encounter for fracture with routine healing (06/28/18) Provider Visit Care Team Role Provider Type Kami Ballesteros MD Family Provider Non-Staff Primary Care Provider Specialty: Medical Address: [address] [place] [address], [facility] [address]; [place], [address] Email: Annette Brown PA-C Attending Provider Non-Staff Specialty: Medical Address: [address] [place] [place] [address], [place], [address] Email: Plan Of Care PT-OP-T Assessment and Plan Start: 01/04/18 10:28 Freq: Status: Active Protocol: Document 06/28/18 11:15 RCC (Rec: 07/01/18 16:26 RCC [email or web address]) Physical Therapy Assessment Goals Five Impairment Neck strength Snagger Goal (LTG) Pt will be able to perform supine<->sit without UE assist on head for support prior to d/c. (goal achieved) LTG Duration 6 weeks Four Impairment UE strength Mcc Goal (LTG) Bilateral Elbow flexion and extension 5/ 5 Shoulder abduction, extension, ER, flexion, IR 5/5 LTG Duration 6 weeks Three Impairment Lack appropriate HEP Mcc Goal (LTG) Indep. with HEP 06/28/18: requires ongoing progression LTG Duration 6 weeks Two Impairment cervical spine ROM Mcc Goal (LTG) AROM: extension 35 deg flexion 50 deg rotation L 50 deg rotation R 50 deg side bend L 30 deg side bend R 30 deg 06/28/18: some progress LTG Duration 6 weeks One Impairment Unable to drive Snagger Goal (LTG) Pt will report improved ability to head-check while driving prior to d/c. 06/28/18: improving but still stiff LTG Duration 6 weeks Progress Towards Goals Progress Towards Goals Progressing Toward Goals Slow Progress - Other Progress Comments slow progress due to prolonged immobilizations, complexity of injury, age/impaired healing. Assessment Summary Assessment Pt's cervical spine ROM is improving slowly, but continues to improve with functional tasks such as head checking (turning head on neck) while driving. Pt continues to require prolonged rehab process due to her lengthy time spent in cervical immobilizer and other medical complexities. Pt is continuing to make progress with physical therapy, and recommend she continue to attend to progress ROM, strength, posture, and progress toward prior functional status. Physical Therapy Plan Frequency and Duration Frequency of Treatment 1x/Week Duration of Treatment 6 wks Plan of Care Start Date 06/28/18 Plan of Care End Date 08/09/18 Therapeutic Interventions Therapeutic Interventions Aquatic Therapy Balance Training Gait Training Home Exercise Program Joint Mobilizations Manual Therapy Neuromuscular Re-education Patient/Caregiver Education Self-Care/Home Management Soft Tissue Mobilization Therapeutic Activities Therapeutic Exercises Modalities Cold Pack/Ice Massage Electric Stimulation Hot Packs Traction- Mechanical Ultrasound Next Visit Focus/Plan Next Note Type Treatment Note Next Visit Plan progress AROM and posture. Plan of Care Dates Plan of Care Start Date 06/28/18 Plan of Care End Date 08/09/18 Please Sign and Return: I have reviewed this Plan of Care and certify that the skilled therapy services above are required to meet the patient?s needs. Physician Signature Date Printed Name and Credentials Clinical Instructor Signature Printed Name and Credentials
--- NOTE | 2018-06-28 11:15 | PT.OTN ---
Current Diagnoses Muscle weakness (generalized) (06/28/18) Other abnormalities of gait and mobility (06/28/18) Abnormal posture (06/28/18) Unspecified displaced fracture of second cervical vertebra, subsequent encounter for fracture with routine healing (06/28/18) Physical Therapy Treatment Note PT-OP-A Visit Information Start: 01/04/18 10:28 Freq: Status: Active Protocol: Document 06/28/18 11:15 [facility] (Rec: 07/01/18 16:26 [facility] [email or web address]) Out-Patient Physical Therapy Visit Information Visit Information Visit Type Treatment Note Visit Note KX Visit Start Time 10:32 Visit Stop Time 11:15 Total Visit Minutes 43 Visit Number 26 Number of FURNACE FIRER Visits 0 Evaluation Information Evaluation Date 10/25/17 PT-OP-B Current Condition Start: 03/29/18 11:27 Freq: Status: Active Protocol: Document 03/29/18 11:15 [facility] (Rec: 03/29/18 11:46 [facility] [email or web address]) Current Condition History of Current Condition Onset Date 04/11/2017 History of Current Condition Pt had a fall on 04/11/2017 while in [place], found to have a type 2 odontoid fx. She wore a [place]-J collar since fx , discharged collar in 2017. Pt reports difficulty with sewing, reaching overhead , unable to drive. Prior Treatments and Tests prolonged immobilization with [place] J collar, no surgical intervention for type 2 odontoid fx. Treatment Goals Patient/Caregiver Goals return to driving, be able to safely head check and return to sewing without restrictions. PT-OP-C Subjective Start: 01/04/18 10:28 Freq: Status: Active Protocol: Document 06/28/18 11:15 [facility] (Rec: 07/01/18 16:26 [facility] [email or web address]) OP-PT Subjective Patient Comments Patient Comments Pt is improving with her head checks while driving in the car but continues to c/o stiffness of the neck. PT-OP-K Range of Motion Start: 01/04/18 11:29 Freq: Status: Active Protocol: Document 06/28/18 11:15 [facility] (Rec: 07/01/18 16:26 [facility] [email or web address]) Cervical Spine Range of Motion Cervical Spine Active Degrees Testing Position Sitting Flexion 45 Extension 35 Rotation Left 35 Rotation Right 30 Lateral Flexion Left 27 Lateral Flexion Right 28 ROM Limitations Soft Tissue Tightness Contracture Bony Restriction PT-OP-M Strength Start: 01/27/18 13:02 Freq: Status: Active Protocol: Document 01/25/18 11:15 [facility] (Rec: 01/27/18 13:25 [facility] [email or web address]) Scapula Strength Scapula Manual Muscle Testing Right Elevation (C4) 5 Normal Left Elevation (C4) 5 Normal Shoulder Strength Shoulder Manual Muscle Testing Right Flexion 5 Normal Abduction (C5) 4+ Good+ External Rotation 5 Normal Internal Rotation 5 Normal Left Flexion 5 Normal Abduction (C5) 4+ Good+ External Rotation 5 Normal Internal Rotation 5 Normal Elbow/Forearm Strength Elbow and Forearm Manual Muscle Testing Right Flexion (C6) 5 Normal Extension (C7) 5 Normal Left Flexion (C6) 4+ Good+ Extension (C7) 4+ Good+ PT-OP-Q Treatments Start: 01/04/18 10:28 Freq: Status: Active Protocol: Document 06/28/18 11:15 [facility] (Rec: 07/01/18 16:26 [facility] [email or web address]) Manual Therapy Treatment Soft Tissue Mobilization 3 Body Location Levator scapula Mobilization Type Rolling Intensity/Depth Moderate Body Position Supine 2 Body Location suboccipitals Mobilization Type Rolling Intensity/Depth Moderate Body Position Supine 1 Body Location Scalenes Mobilization Type Rolling Intensity/Depth Moderate Body Position Supine Joint Mobilizations 1 Joint C4-6 Direction bilateral Grade III Body Position Supine Reps/Duration 5 min Comments Side-gliding. Manual Techniques 1 Type PROM- cervical SB and rotation bilateral Body Location cervical Body Position Hooklying Reps/Duration 5 each Other Other Manual Treatments cervical spine ROM PT-OP-R Modalities Start: 01/04/18 10:28 Freq: Status: Active Protocol: Document 06/28/18 11:15 [facility] (Rec: 07/01/18 16:26 [facility] [email or web address]) Hot Pack/Cold Pack Treatment Hot Pack Location cervical Patient Position Supine Treatment Duration (minutes) 10 Patient Tolerance Good Comments mickeystca PT-OP-T Assessment and Plan Start: 01/04/18 10:28 Freq: Status: Active Protocol: Document 06/28/18 11:15 [facility] (Rec: 07/01/18 16:26 [facility] [email or web address]) Physical Therapy Assessment Goals Five Impairment Neck strength Retirement Goal (LTG) Pt will be able to perform supine<->sit without UE assist on head for support prior to d/c. (goal achieved) LTG Duration 6 weeks Four Impairment UE strength Circuit Breaker Supervisor Goal (LTG) Bilateral Elbow flexion and extension 5/ 5 Shoulder abduction, extension, ER, flexion, IR 5/5 LTG Duration 6 weeks Three Impairment Lack appropriate HEP Retirement Goal (LTG) Indep. with HEP 06/28/18: requires ongoing progression LTG Duration 6 weeks Two Impairment cervical spine ROM Retirement Goal (LTG) AROM: extension 35 deg flexion 50 deg rotation L 50 deg rotation R 50 deg side bend L 30 deg side bend R 30 deg 06/28/18: some progress LTG Duration 6 weeks One Impairment Unable to drive Circuit Breaker Supervisor Goal (LTG) Pt will report improved ability to head-check while driving prior to d/c. 06/28/18: improving but still stiff LTG Duration 6 weeks Progress Towards Goals Progress Towards Goals Progressing Toward Goals Slow Progress - Other Progress Comments slow progress due to prolonged immobilizations, complexity of injury, age/impaired healing. Assessment Summary Assessment Pt's cervical spine ROM is improving slowly, but continues to improve with functional tasks such as head checking (turning head on neck) while driving. Pt continues to require prolonged rehab process due to her lengthy time spent in cervical immobilizer and other medical complexities. Pt is continuing to make progress with physical therapy, and recommend she continue to attend to progress ROM, strength, posture, and progress toward prior functional status. Physical Therapy Plan Frequency and Duration Frequency of Treatment 1x/Week Duration of Treatment 6 wks Plan of Care Start Date 06/28/18 Plan of Care End Date 08/09/18 Therapeutic Interventions Therapeutic Interventions Aquatic Therapy Balance Training Gait Training Home Exercise Program Joint Mobilizations Manual Therapy Neuromuscular Re-education Patient/Caregiver Education Self-Care/Home Management Soft Tissue Mobilization Therapeutic Activities Therapeutic Exercises Modalities Cold Pack/Ice Massage Electric Stimulation Hot Packs Traction- Mechanical Ultrasound Next Visit Focus/Plan Next Note Type Treatment Note Next Visit Plan progress AROM and posture.
--- NOTE | 2018-07-05 11:15 | PT.OTN ---
Current Diagnoses Muscle weakness (generalized) (07/05/18) Other abnormalities of gait and mobility (07/05/18) Abnormal posture (07/05/18) Unspecified displaced fracture of second cervical vertebra, subsequent encounter for fracture with routine healing (07/05/18) Physical Therapy Treatment Note PT-OP-A Visit Information Start: 01/04/18 10:28 Freq: Status: Active Protocol: Document 07/05/18 11:15 [facility] (Rec: 07/05/18 12:14 [facility] [email or web address]) Out-Patient Physical Therapy Visit Information Visit Information Visit Type Treatment Note Visit Note KX Visit Start Time 10:34 Visit Stop Time 11:15 Total Visit Minutes 41 Visit Number 27 Number of MECHANIC'S ASSISTANT Visits 0 Evaluation Information Evaluation Date 10/25/17 PT-OP-B Current Condition Start: 03/29/18 11:27 Freq: Status: Active Protocol: Document 03/29/18 11:15 [facility] (Rec: 03/29/18 11:46 [facility] [email or web address]) Current Condition History of Current Condition Onset Date 04/11/2017 History of Current Condition Pt had a fall on 04/11/2017 while in [place], found to have a type 2 odontoid fx. She wore a [place]-J collar since fx , discharged collar in 2017. Pt reports difficulty with sewing, reaching overhead , unable to drive. Prior Treatments and Tests prolonged immobilization with [place] J collar, no surgical intervention for type 2 odontoid fx. Treatment Goals Patient/Caregiver Goals return to driving, be able to safely head check and return to sewing without restrictions. PT-OP-C Subjective Start: 01/04/18 10:28 Freq: Status: Active Protocol: Document 07/05/18 11:15 [facility] (Rec: 07/05/18 12:14 [facility] [email or web address]) OP-PT Subjective Patient Comments Patient Comments Pt without c/o popping or snapping this week. She has been doing more quilting recently, but does need to take intermittent breaks due to neck discomfort/fatigue. PT-OP-K Range of Motion Start: 01/04/18 11:29 Freq: Status: Active Protocol: Document 06/28/18 11:15 [facility] (Rec: 07/01/18 16:26 [facility] [email or web address]) Cervical Spine Range of Motion Cervical Spine Active Degrees Testing Position Sitting Flexion 45 Extension 35 Rotation Left 35 Rotation Right 30 Lateral Flexion Left 27 Lateral Flexion Right 28 ROM Limitations Soft Tissue Tightness Contracture Bony Restriction PT-OP-M Strength Start: 01/27/18 13:02 Freq: Status: Active Protocol: Document 01/25/18 11:15 [facility] (Rec: 01/27/18 13:25 [facility] [email or web address]) Scapula Strength Scapula Manual Muscle Testing Right Elevation (C4) 5 Normal Left Elevation (C4) 5 Normal Shoulder Strength Shoulder Manual Muscle Testing Right Flexion 5 Normal Abduction (C5) 4+ Good+ External Rotation 5 Normal Internal Rotation 5 Normal Left Flexion 5 Normal Abduction (C5) 4+ Good+ External Rotation 5 Normal Internal Rotation 5 Normal Elbow/Forearm Strength Elbow and Forearm Manual Muscle Testing Right Flexion (C6) 5 Normal Extension (C7) 5 Normal Left Flexion (C6) 4+ Good+ Extension (C7) 4+ Good+ PT-OP-Q Treatments Start: 01/04/18 10:28 Freq: Status: Active Protocol: Document 07/05/18 11:15 [facility] (Rec: 07/05/18 12:14 [facility] [email or web address]) Manual Therapy Treatment Soft Tissue Mobilization SCM Body Location R SCM Mobilization Type Rolling Intensity/Depth Moderate Body Position Supine 3 Body Location Levator scapula Mobilization Type Rolling Intensity/Depth Moderate Body Position Supine 2 Body Location suboccipitals Mobilization Type Rolling Intensity/Depth Moderate Body Position Supine 1 Body Location Scalenes Mobilization Type Rolling Intensity/Depth Moderate Body Position Supine Manual Techniques 1 Type PROM- cervical SB and rotation bilateral Body Location cervical Body Position Hooklying Reps/Duration 3 each PT-OP-R Modalities Start: 01/04/18 10:28 Freq: Status: Active Protocol: Document 07/05/18 11:15 [facility] (Rec: 07/05/18 12:14 [facility] [email or web address]) Hot Pack/Cold Pack Treatment Hot Pack Location cervical Patient Position Supine Treatment Duration (minutes) 10 Patient Tolerance Good Comments mickeyster PT-OP-T Assessment and Plan Start: 01/04/18 10:28 Freq: Status: Active Protocol: Document 07/05/18 11:15 [facility] (Rec: 07/05/18 12:14 [facility] [email or web address]) Physical Therapy Assessment Assessment Summary Assessment Pt with less tension in upper trapezius over the past few appointments, but does have increased tension in SCM on the R only today. Pt continues to have significant joint hypomobility, but is improving with ROM and flexibility and continues to report improvements with overall function. Physical Therapy Plan Frequency and Duration Frequency of Treatment 1x/Week Duration of Treatment 6 wks Plan of Care Start Date 06/28/18 Plan of Care End Date 08/09/18 Next Visit Focus/Plan Next Note Type Treatment Note Next Visit Plan neck stability and strength, posture, STR.
--- NOTE | 2018-07-12 12:00 | PT.OTN ---
Current Diagnoses Muscle weakness (generalized) (07/12/18) Other abnormalities of gait and mobility (07/12/18) Abnormal posture (07/12/18) Unspecified displaced fracture of second cervical vertebra, subsequent encounter for fracture with routine healing (07/12/18) Physical Therapy Treatment Note PT-OP-A Visit Information Start: 01/04/18 10:28 Freq: Status: Active Protocol: Document 07/12/18 12:00 [facility] (Rec: 07/12/18 13:28 [facility] [email or web address]) Out-Patient Physical Therapy Visit Information Visit Information Visit Type Treatment Note Visit Note KX Visit Start Time 11:16 Visit Stop Time 12:00 Total Visit Minutes 44 Visit Number 28 Number of COMPUTER SYSTEMS INFORMATION DIRECTOR Visits 0 Evaluation Information Evaluation Date 10/25/17 PT-OP-B Current Condition Start: 03/29/18 11:27 Freq: Status: Active Protocol: Document 03/29/18 11:15 [facility] (Rec: 03/29/18 11:46 [facility] [email or web address]) Current Condition History of Current Condition Onset Date 04/11/2017 History of Current Condition Pt had a fall on 04/11/2017 while in [place], found to have a type 2 odontoid fx. She wore a [place]-J collar since fx , discharged collar in 2017. Pt reports difficulty with sewing, reaching overhead , unable to drive. Prior Treatments and Tests prolonged immobilization with [place] J collar, no surgical intervention for type 2 odontoid fx. Treatment Goals Patient/Caregiver Goals return to driving, be able to safely head check and return to sewing without restrictions. PT-OP-C Subjective Start: 01/04/18 10:28 Freq: Status: Active Protocol: Document 07/12/18 12:00 [facility] (Rec: 07/12/18 13:28 [facility] [email or web address]) OP-PT Subjective Patient Comments Patient Comments Pt states that she is doing more quilting this past week, she has had some popping but not as frequent as when she first started back to quilting . PT-OP-K Range of Motion Start: 01/04/18 11:29 Freq: Status: Active Protocol: Document 06/28/18 11:15 [facility] (Rec: 07/01/18 16:26 [facility] [email or web address]) Cervical Spine Range of Motion Cervical Spine Active Degrees Testing Position Sitting Flexion 45 Extension 35 Rotation Left 35 Rotation Right 30 Lateral Flexion Left 27 Lateral Flexion Right 28 ROM Limitations Soft Tissue Tightness Contracture Bony Restriction PT-OP-M Strength Start: 01/27/18 13:02 Freq: Status: Active Protocol: Document 01/25/18 11:15 [facility] (Rec: 01/27/18 13:25 [facility] [email or web address]) Scapula Strength Scapula Manual Muscle Testing Right Elevation (C4) 5 Normal Left Elevation (C4) 5 Normal Shoulder Strength Shoulder Manual Muscle Testing Right Flexion 5 Normal Abduction (C5) 4+ Good+ External Rotation 5 Normal Internal Rotation 5 Normal Left Flexion 5 Normal Abduction (C5) 4+ Good+ External Rotation 5 Normal Internal Rotation 5 Normal Elbow/Forearm Strength Elbow and Forearm Manual Muscle Testing Right Flexion (C6) 5 Normal Extension (C7) 5 Normal Left Flexion (C6) 4+ Good+ Extension (C7) 4+ Good+ PT-OP-Q Treatments Start: 01/04/18 10:28 Freq: Status: Active Protocol: Document 07/12/18 12:00 [facility] (Rec: 07/12/18 13:28 [facility] [email or web address]) Therapeutic Exercises Supine Exercises 1 Supine Exercise Name levator and UT stretch Side bilateral Comments manual Manual Therapy Treatment Soft Tissue Mobilization SCM Body Location bilateral SCM Mobilization Type Rolling Intensity/Depth Moderate Body Position Supine 3 Body Location Levator scapula Mobilization Type Rolling Intensity/Depth Moderate Body Position Supine 2 Body Location suboccipitals Mobilization Type Rolling Intensity/Depth Moderate Body Position Supine 1 Body Location Scalenes Mobilization Type Rolling Intensity/Depth Moderate Body Position Supine Manual Techniques 1 Type PROM- cervical SB and rotation bilateral Body Location cervical Body Position Hooklying Reps/Duration 3 each PT-OP-R Modalities Start: 01/04/18 10:28 Freq: Status: Active Protocol: Document 07/12/18 12:00 [facility] (Rec: 07/12/18 13:28 [facility] [email or web address]) Hot Pack/Cold Pack Treatment Hot Pack Location cervical Patient Position Supine Treatment Duration (minutes) 10 Patient Tolerance Good Comments kamilla PT-OP-T Assessment and Plan Start: 01/04/18 10:28 Freq: Status: Active Protocol: Document 07/12/18 12:00 [facility] (Rec: 07/12/18 13:28 [facility] [email or web address]) Physical Therapy Assessment Assessment Summary Assessment Pt initially with soft tissue restriction limiting her R rotation, but improved after manual therapy with restriction of the soft tissue . She continues to be limited by joint hypomobility of the cervical spine throughout. Physical Therapy Plan Frequency and Duration Frequency of Treatment 1x/Week Duration of Treatment 6 wks Plan of Care Start Date 06/28/18 Plan of Care End Date 08/09/18 Next Visit Focus/Plan Next Note Type Treatment Note Next Visit Plan cervical AROM and review and progress HEP and stetching.
--- NOTE | 2018-07-19 11:15 | PT.OTN ---
Current Diagnoses Muscle weakness (generalized) (07/19/18) Other abnormalities of gait and mobility (07/19/18) Abnormal posture (07/19/18) Unspecified displaced fracture of second cervical vertebra, subsequent encounter for fracture with routine healing (07/19/18) Physical Therapy Treatment Note PT-OP-A Visit Information Start: 01/04/18 10:28 Freq: Status: Active Protocol: Document 07/19/18 11:15 [facility] (Rec: 07/19/18 13:22 [facility] [email or web address]) Out-Patient Physical Therapy Visit Information Visit Information Visit Type Treatment Note Visit Note KX Visit Start Time 10:33 Visit Stop Time 11:15 Total Visit Minutes 52 Visit Number 29 Number of CARDROOM ATTENDANT Visits 0 Evaluation Information Evaluation Date 10/25/17 PT-OP-B Current Condition Start: 03/29/18 11:27 Freq: Status: Active Protocol: Document 03/29/18 11:15 [facility] (Rec: 03/29/18 11:46 [facility] [email or web address]) Current Condition History of Current Condition Onset Date 04/11/2017 History of Current Condition Pt had a fall on 04/11/2017 while in [place], found to have a type 2 odontoid fx. She wore a [place]-J collar since fx , discharged collar in 2017. Pt reports difficulty with sewing, reaching overhead , unable to drive. Prior Treatments and Tests prolonged immobilization with [place] J collar, no surgical intervention for type 2 odontoid fx. Treatment Goals Patient/Caregiver Goals return to driving, be able to safely head check and return to sewing without restrictions. PT-OP-C Subjective Start: 01/04/18 10:28 Freq: Status: Active Protocol: Document 07/19/18 11:15 [facility] (Rec: 07/19/18 13:22 [facility] [email or web address]) OP-PT Subjective Patient Comments Patient Comments Pt's neck still stiff but is continuing to feel better after PT sessions. PT-OP-K Range of Motion Start: 01/04/18 11:29 Freq: Status: Active Protocol: Document 06/28/18 11:15 [facility] (Rec: 07/01/18 16:26 [facility] [email or web address]) Cervical Spine Range of Motion Cervical Spine Active Degrees Testing Position Sitting Flexion 45 Extension 35 Rotation Left 35 Rotation Right 30 Lateral Flexion Left 27 Lateral Flexion Right 28 ROM Limitations Soft Tissue Tightness Contracture Bony Restriction PT-OP-M Strength Start: 01/27/18 13:02 Freq: Status: Active Protocol: Document 01/25/18 11:15 [facility] (Rec: 01/27/18 13:25 [facility] [email or web address]) Scapula Strength Scapula Manual Muscle Testing Right Elevation (C4) 5 Normal Left Elevation (C4) 5 Normal Shoulder Strength Shoulder Manual Muscle Testing Right Flexion 5 Normal Abduction (C5) 4+ Good+ External Rotation 5 Normal Internal Rotation 5 Normal Left Flexion 5 Normal Abduction (C5) 4+ Good+ External Rotation 5 Normal Internal Rotation 5 Normal Elbow/Forearm Strength Elbow and Forearm Manual Muscle Testing Right Flexion (C6) 5 Normal Extension (C7) 5 Normal Left Flexion (C6) 4+ Good+ Extension (C7) 4+ Good+ PT-OP-Q Treatments Start: 01/04/18 10:28 Freq: Status: Active Protocol: Document 07/19/18 11:15 [facility] (Rec: 07/19/18 13:22 [facility] [email or web address]) Therapeutic Exercises Supine Exercises 1 Supine Exercise Name levator and UT stretch Side bilateral Manual Therapy Treatment Soft Tissue Mobilization 4 Body Location Upper trapezius Mobilization Type Sustained Pressure Intensity/Depth Moderate Body Position Supine 3 Body Location Levator scapula Mobilization Type Rolling Intensity/Depth Moderate Body Position Supine 2 Body Location suboccipitals Mobilization Type Rolling Intensity/Depth Moderate Body Position Supine 1 Body Location Scalenes Mobilization Type Rolling Intensity/Depth Moderate Body Position Supine Manual Techniques 1 Type PROM- cervical SB and rotation bilateral Body Location cervical Body Position Hooklying Reps/Duration 2 each PT-OP-R Modalities Start: 01/04/18 10:28 Freq: Status: Active Protocol: Document 07/19/18 11:15 [facility] (Rec: 07/19/18 13:22 [facility] [email or web address]) Hot Pack/Cold Pack Treatment Hot Pack Location cervical Patient Position Supine Treatment Duration (minutes) 10 Patient Tolerance Good Comments [email or web address] PT-OP-T Assessment and Plan Start: 01/04/18 10:28 Freq: Status: Active Protocol: Document 07/19/18 11:15 [facility] (Rec: 07/19/18 13:22 [facility] [email or web address]) Physical Therapy Assessment Assessment Summary Assessment Pt's head on neck positioning is normalizing at rest, but still limited significantly with rotation ROM due to stiffness of the upper cervical levels of the spine. She is making progress with her overall daily functional tasks, such as quilting tolerance and tolerance sitting on the computer. Physical Therapy Plan Frequency and Duration Frequency of Treatment 1x/Week Duration of Treatment 6 wks Plan of Care Start Date 06/28/18 Plan of Care End Date 08/09/18 Next Visit Focus/Plan Next Note Type Treatment Note Next Visit Plan continue to progress HEP for self-stretching and postureal stability
--- NOTE | 2018-08-02 11:14 | PT.OTN ---
Current Diagnoses Muscle weakness (generalized) (08/02/18) Other abnormalities of gait and mobility (08/02/18) Abnormal posture (08/02/18) Unspecified displaced fracture of second cervical vertebra, subsequent encounter for fracture with routine healing (08/02/18) Physical Therapy Treatment Note PT-OP-A Visit Information Start: 01/04/18 10:28 Freq: Status: Active Protocol: Document 08/02/18 11:14 RCC (Rec: 08/02/18 14:31 RCC [email or web address]) Out-Patient Physical Therapy Visit Information Visit Information Visit Type Treatment Note Visit Note KX Visit Start Time 10:33 Visit Stop Time 11:14 Total Visit Minutes 41 Visit Number 30 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 She wore a [place]-J collar since fx , discharged collar in 2017. Pt reports difficulty with sewing, reaching overhead , unable to drive. Prior Treatments and Tests prolonged immobilization with [place] J collar, no surgical intervention for type 2 odontoid fx. Treatment Goals Patient/Caregiver Goals return to driving, be able to safely head check and return to sewing without restrictions. PT-OP-C Subjective Start: 01/04/18 10:28 Freq: Status: Active Protocol: Document 08/02/18 11:14 RCC (Rec: 08/02/18 14:31 RCC [email or web address]) OP-PT Subjective Patient Comments Patient Comments Neck is doing well today, she is still limited in her ROM but overall doing well today. PT-OP-K Range of Motion Start: 01/04/18 11:29 Freq: Status: Active Protocol: Document 06/28/18 11:15 RCC (Rec: 07/01/18 16:26 RCC [email or web address]) Cervical Spine Range of Motion Cervical Spine Active Degrees Testing Position Sitting Flexion 45 Extension 35 Rotation Left 35 Rotation Right 30 Lateral Flexion Left 27 Lateral Flexion Right 28 ROM Limitations Soft Tissue Tightness Contracture Bony Restriction PT-OP-M Strength Start: 01/27/18 13:02 Freq: Status: Active Protocol: Document 01/25/18 11:15 RCC (Rec: 01/27/18 13:25 RCC [email or web address]) Scapula Strength Scapula Manual Muscle Testing Right Elevation (C4) 5 Normal Left Elevation (C4) 5 Normal Shoulder Strength Shoulder Manual Muscle Testing Right Flexion 5 Normal Abduction (C5) 4+ Good+ External Rotation 5 Normal Internal Rotation 5 Normal Left Flexion 5 Normal Abduction (C5) 4+ Good+ External Rotation 5 Normal Internal Rotation 5 Normal Elbow/Forearm Strength Elbow and Forearm Manual Muscle Testing Right Flexion (C6) 5 Normal Extension (C7) 5 Normal Left Flexion (C6) 4+ Good+ Extension (C7) 4+ Good+ PT-OP-Q Treatments Start: 01/04/18 10:28 Freq: Status: Active Protocol: Document 08/02/18 11:14 RCC (Rec: 08/02/18 14:31 RCC [email or web address]) Therapeutic Exercises Supine Exercises 1 Supine Exercise Name levator and UT stretch Side bilateral Manual Therapy Treatment Soft Tissue Mobilization 4 Body Location Upper trapezius Mobilization Type Sustained Pressure Intensity/Depth Moderate Body Position Supine 3 Body Location Levator scapula Mobilization Type Rolling Intensity/Depth Moderate Body Position Supine 2 Body Location suboccipitals Mobilization Type Rolling Intensity/Depth Moderate Body Position Supine 1 Body Location Scalenes Mobilization Type Rolling Intensity/Depth Moderate Body Position Supine Joint Mobilizations 1 Joint C4-6 Direction bilateral Grade III Body Position Supine Reps/Duration 5 min Comments Side-gliding. Manual Techniques 1 Type PROM- cervical SB and rotation bilateral Body Location cervical Body Position Hooklying Reps/Duration 2 each PT-OP-R Modalities Start: 01/04/18 10:28 Freq: Status: Active Protocol: Document 08/02/18 11:14 RCC (Rec: 08/02/18 14:31 RCC [email or web address]) Hot Pack/Cold Pack Treatment Hot Pack Location cervical Patient Position Supine Treatment Duration (minutes) 10 Patient Tolerance Good Comments [email or web address] PT-OP-T Assessment and Plan Start: 01/04/18 10:28 Freq: Status: Active Protocol: Document 08/02/18 11:14 RCC (Rec: 08/02/18 14:31 RCC [email or web address]) Physical Therapy Assessment Assessment Summary Assessment Pt continues to have limited ROM, particularly with rotation due to h/o upper cervical fx and prolonged immobilization. Physical Therapy Plan Frequency and Duration Frequency of Treatment 1x/Week Duration of Treatment 6 wks Plan of Care Start Date 06/28/18 Plan of Care End Date 08/09/18 Next Visit Focus/Plan Next Note Type Progress Note Next Visit Plan re-assess obj. measures
--- NOTE | 2018-08-09 11:15 | PT.OTN ---
Current Diagnoses Muscle weakness (generalized) (08/09/18) Other abnormalities of gait and mobility (08/09/18) Abnormal posture (08/09/18) Unspecified displaced fracture of second cervical vertebra, subsequent encounter for fracture with routine healing (08/09/18) Physical Therapy Treatment Note PT-OP-A Visit Information Start: 01/04/18 10:28 Freq: Status: Active Protocol: Document 08/09/18 11:15 RCC (Rec: 08/09/18 16:44 RCC [email or web address]) Out-Patient Physical Therapy Visit Information Visit Information Visit Type Treatment Note Visit Note KX Visit Start Time 10:35 Visit Stop Time 11:15 Total Visit Minutes 40 Visit Number 31 Number of [employer] 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 She wore a [place]-J collar since fx , discharged collar in 2017. Pt reports difficulty with sewing, reaching overhead , unable to drive. Prior Treatments and Tests prolonged immobilization with [place] J collar, no surgical intervention for type 2 odontoid fx. Treatment Goals Patient/Caregiver Goals return to driving, be able to safely head check and return to sewing without restrictions. PT-OP-C Subjective Start: 01/04/18 10:28 Freq: Status: Active Protocol: Document 08/09/18 11:15 RCC (Rec: 08/09/18 16:44 RCC [email or web address]) OP-PT Subjective Patient Comments Patient Comments Pt states that she occasionally has some neck popping, infrequent, but still occurs after keeping head in one spot for too long. PT-OP-K Range of Motion Start: 01/04/18 11:29 Freq: Status: Active Protocol: Document 08/09/18 11:15 RCC (Rec: 08/09/18 16:44 RCC [email or web address]) Cervical Spine Range of Motion Cervical Spine Active Degrees Flexion 45 Extension 34 Rotation Left 42 Rotation Right 34 Lateral Flexion Left 27 Lateral Flexion Right 30 Comments Pre-treatment ROM: flexion 42, extension 28, rotation L 40, rotation R 31, lateral flexion L 25, lateral flexion R 24 PT-OP-M Strength Start: 01/27/18 13:02 Freq: Status: Active Protocol: Document 08/09/18 11:15 RCC (Rec: 08/09/18 16:44 RCC [email or web address]) Shoulder Strength Shoulder Manual Muscle Testing Right Flexion 5 Normal Abduction (C5) 5 Normal External Rotation 5 Normal Internal Rotation 5 Normal Left Flexion 5 Normal Abduction (C5) 5 Normal External Rotation 5 Normal Internal Rotation 5 Normal Elbow/Forearm Strength Elbow and Forearm Manual Muscle Testing Right Flexion (C6) 5 Normal Extension (C7) 5 Normal Left Flexion (C6) 5 Normal Extension (C7) 5 Normal PT-OP-Q Treatments Start: 01/04/18 10:28 Freq: Status: Active Protocol: Document 08/09/18 11:15 RCC (Rec: 08/09/18 16:44 [facility] [email or web address]) Therapeutic Exercises Supine Exercises chin tuck Side bilateral Reps/Minutes 5 reps Comments 5 sec hold Sitting Exercises cervical AROM Sitting Exercise Name lateral flexion and rotation Side bilateral Reps/Minutes 5 each neck isometrics Sitting Exercise Name all directions Side bilateral Reps/Minutes 5 reps Comments 5 sec hold Manual Therapy Treatment Soft Tissue Mobilization 4 Body Location Upper trapezius Mobilization Type Sustained Pressure Intensity/Depth Moderate Body Position Supine 3 Body Location Levator scapula Mobilization Type Rolling Intensity/Depth Moderate Body Position Supine 2 Body Location suboccipitals Mobilization Type Rolling Intensity/Depth Moderate Body Position Supine 1 Body Location Scalenes Mobilization Type Rolling Intensity/Depth Moderate Body Position Supine Manual Techniques 1 Type PROM- cervical SB and rotation bilateral Body Location cervical Body Position Hooklying Reps/Duration 2 each PT-OP-R Modalities Start: 01/04/18 10:28 Freq: Status: Active Protocol: Document 08/09/18 11:15 RCC (Rec: 08/09/18 16:44 RCC [email or web address]) Hot Pack/Cold Pack Treatment Hot Pack Location cervical Patient Position Supine Treatment Duration (minutes) 10 Patient Tolerance Good Comments [email or web address] PT-OP-T Assessment and Plan Start: 01/04/18 10:28 Freq: Status: Active Protocol: Document 08/09/18 11:15 RCC (Rec: 08/09/18 16:44 RCC [email or web address]) Physical Therapy Assessment Goals Five Impairment Neck strength Halfway Goal (LTG) Pt will be able to perform supine<->sit without UE assist on head for support prior to d/c. (goal achieved) LTG Duration 6 weeks Four Impairment UE strength Halfway Goal (LTG) Bilateral Elbow flexion and extension 5/ 5 Shoulder abduction, extension, ER, flexion, IR 5/5 LTG Duration achieved 08/09/18 Three Impairment Lack appropriate HEP Halfway Goal (LTG) Indep. with HEP 06/28/18: requires ongoing progression LTG Duration achieved 08/09/18 Two Impairment cervical spine ROM Halfway Goal (LTG) AROM: extension 35 deg flexion 50 deg rotation L 50 deg rotation R 50 deg side bend L 30 deg side bend R 30 deg 06/28/18: some progress LTG Duration 6 weeks- no change since 06/28 One Impairment Unable to drive Halfway Goal (LTG) Pt will report improved ability to head-check while driving prior to d/c. 06/28/18: improving but still stiff LTG Duration able to drive 08/09/18 Assessment Summary Assessment Pt able to drive again in town , and able to perform her HEP during this session without increase in pain. Pt's ROM at this time appears to have reached a plateau. She has increased ROM after manual therapy and heat (from start to end of session), but no significant change noted from comparison on 06/28/18. At this time, recommend pt be discharged to her HEP, as progress has plateaued. Physical Therapy Plan Discharge Physical Therapy Discharge Reasons Plateau in Progress
== END 2018-08-10 11:42 ==
LOC: PHYS 10:30
PROVIDERS: Family Provider Student in an Organized Health Care Education/Training Program; PCP Student in an Organized Health Care Education/Training Program; Visit Provider Physician Assistant
DX: S12.100D Unspecified displaced fracture of second cervical vertebra, subsequent encounter for fracture with routine healing (principal); R29.3 Abnormal posture; M62.81 Muscle weakness (generalized); R26.89 Other abnormalities of gait and mobility
CPT/HCPCS: 97010; 97110; 97140

== ENCOUNTER 2019-07-14 07:41 | Emergency (ER) | payer MEDICARE, OTHER, SELFPAY ==
[2019-07-14 07:54] VITALS: BP 139/63; PULSE 91; RESP 15; TEMP 36.6; O2SAT 98; BMI 31.8
--- NOTE | 2019-07-14 07:56 | DI.RAD.S_ITS ---
PROCEDURE: XR HIP W PEL IF DONE LT 2V INDICATIONS: pain TECHNIQUE: AP pelvis with lateral view(s) of the left hip(s). COMPARISON: [facility], , ABDOMEN 2 VIEW, 08/09/2017, 10:53. FINDINGS: Bones: No fractures or dislocations. Pelvic ring appears intact. No suspicious bony lesions. Bilateral hip arthroplasty hardware is seen. No findings of hardware failure or hardware loosening are seen. At the lower Soft tissues: The visualized bowel gas pattern is normal. No suspicious soft tissue calcifications. IMPRESSION: Unremarkable bilateral hip arthroplasty hardware. Dictated by: Lion Combs M.D. on 07/14/2019 at 7:27 Approved by: Lion Combs M.D. on 07/14/2019 at 7:28
--- NOTE | 2019-07-14 08:12 | ED.LOWEXIN ---
HPI - Extremity Injury (Lower) General Chief Complaint: Extremity Injury, Lower Stated Complaint: Possible left hip fracture Time Seen by Provider: 07/14/19 08:06 Source: patient Mode of arrival: Wheelchair Limitations: no limitations History of Present Illness HPI Narrative: Patient is a 69-year-old female with history of osteoporosis, bilateral hip arthroplasty recent of breast cancer currently taking letrozole who presents with left hip pain. She states that lectures all enhances osteoporosis which she already has at baseline. She denies any fall or specific injury but she did twist do something a little funny yesterday. She is barely able to put weight on her left leg. She has intense pain. She does not really respond well to pain medications but has taken oxycodone in the past. She has no numbness or tingling however she does have some tingling in both of her feet for which she takes nortriptyline for, she took that last night it has not seemed to help. MD complaint: hip injury Related Data Home Medications Medication Instructions Recorded Confirmed atorvastatin 20 mg tablet 20 mg PO DAILY 04/09/18 04/09/18 losartan 25 mg tablet 25 mg PO DAILY 04/09/18 04/09/18 omeprazole 20 mg capsule,delayed 20 mg PO DAILY 04/09/18 04/09/18 release timolol 0.5 % eye drops 1 drop EYE-BOTH DAILY ml 04/09/18 04/09/18 Previous Rx's Medication Instructions Recorded docusate sodium [Colace] 100 mg PO BIDP PRN #20 cap 08/09/17 tramadol 1 - 2 tab PO Q4HP PRN #10 tab 08/09/17 oxycodone-acetaminophen [Percocet] 1 tab PO Q6H PRN #10 tab 07/14/19 Allergies Allergy/AdvReac Type Severity Reaction Status Date / Time Penicillins [PENICILLINS] Allergy Severe gi Verified 07/14/19 07:54 Review of Systems Review of Systems ROS Unobtainable: All systems reviewed & are unremarkable except as noted in HPI and below Constitutional Constitutional: Denies chills, Denies fever(s), Denies lethargy and Denies weakness Eyes Eyes: Denies change in vision, Denies eye discharge, Denies irritation and Denies loss of vision ENT Ears, Nose, Mouth, and Throat: Denies change in voice and Denies sore throat Cardiovascular Cardiovascular: Denies chest pain, Denies irregular heart rhythm, Denies lightheadedness, Denies palpitations, Denies dyspnea, Denies dyspnea on exertion and Denies orthopnea Respiratory Respiratory: Denies cough, Denies dyspnea, Denies dyspnea on exertion and Denies wheezing Gastrointestinal Gastrointestinal: Denies abdominal pain, Denies change in bowel habits, Denies diarrhea, Denies nausea and Denies vomiting Genitourinary Genitourinary: Denies hematuria, Denies flank pain, Denies urinary incontinence and Denies urinary urgency Musculoskeletal Musculoskeletal: Reports as per HPI Integumentary/Breasts Skin/Breast: Denies pruritus, Denies erythema, Denies rash and Denies wounds Neurologic Neurologic: Denies loss of vision and Denies weakness Endocrine Endocrine: Denies palpitations Allergic/Immunologic Allergic/Immunologic: Denies wheezing Patient History Medical History Breast cancer (Acute) C2 cervical fracture (Acute) Surgical History History of bilateral hip arthroplasty (Acute) Social History Smoking Status: Never smoker alcohol intake: never substance use type: does not use Exam Initial Vital Signs Initial Vital Signs: Vital Signs Temperature 97.8 F 07/14/19 07:54 Pulse Rate 91 H 07/14/19 07:54 Respiratory Rate 15 07/14/19 07:54 Blood Pressure 139/63 07/14/19 07:54 Pulse Oximetry 98 07/14/19 07:54 GENERAL: Well-appearing, well-nourished and in no acute distress. HEENT: Head atraumatic,EOMI, pupils reactive, face symmetric CARDIOVASCULAR: Regular rate and rhythm without murmurs, rubs or gallops. RESPIRATORY: Breath sounds equal bilaterally, no wheezes rales or rhonchi. ABDOMEN: Soft, nontender. Normoactive bowel sounds all 4 quadrants. No guarding or rebound. EXTREMITIES: Normal range of motion, no clubbing or edema. Neurovascularly intact -left hip is tender to touch legs are of equal length foot is warm with strong distal pedal pulse no abnormality NEUROLOGICAL: Alert and oriented x4.Normal gait and speech. Cranial nerves II through XII grossly intact. SKIN: Warm, dry, no laceration, no petechiae, no rashes or lesions. Course Orders Ordered: ED Orders 07/14/19 07:56 XR hip w pel if done LT 2V Stat 07/14/19 08:36 CT pelvis wo con Stat Discontinued Medications Oxycodone/Acetaminophen (Percocet 5/325) 1 tab PO NOW ONE Stop: 07/14/19 08:37 Last Admin: 07/14/19 09:11 Dose: 1 tab Documented by: VERA Vital Signs Vital signs: Vital Signs - 8 hr 07/14/19 07:54 07/14/19 09:43 Temperature 97.8 F Pulse Rate 91 H 84 Respiratory Rate 15 16 Blood Pressure 139/63 132/78 Pulse Oximetry 98 97 MDM - Extremity Injury (Lower) Imaging Data left hip pelvis: Radiologist's impression: PROCEDURE: XR HIP W PEL IF DONE LT 2V INDICATIONS: pain TECHNIQUE: AP pelvis with lateral view(s) of the left hip(s). COMPARISON: [facility], ABDOMEN 2 VIEW, 08/09/2017, 10:53. FINDINGS: Bones: No fractures or dislocations. Pelvic ring appears intact. No suspicious bony lesions. Bilateral hip arthroplasty hardware is seen. No findings of hardware failure or hardware loosening are seen. At the lower Soft tissues: The visualized bowel gas pattern is normal. No suspicious soft tissue calcifications. IMPRESSION: Unremarkable bilateral hip arthroplasty hardware. Dictated by: Lion Combs M.D. on 07/14/2019 at 7:[address]: Radiologist's impression: PROCEDURE: CT PEL WO CON INDICATIONS: severe pain unable to bear weight left side TECHNIQUE: Noncontrast 3 mm axial sections acquired through the bony pelvis, with coronal and sagittal reformatting. COMPARISON: [facility], XR HIP W PEL IF DONE LT 2V, 07/14/2019, 7:56. [facility], ABDOMEN 2 VIEW, 08/09/2017, 10:53. FINDINGS: Image quality: There is streak artifact related to the patient's metallic hardware. Metal suppression algorithm is used, with partial reduction of the artifact. Bones: Bilateral hip arthroplasty hardware is seen. No findings of hardware failure or hardware loosening are seen. No fractures or dislocations are seen. No focal bony abnormalities can be seen. Lower lumbar spine degenerative changes are partially seen. There is prominent fusion of the left sacroiliac joint, as on series 2 image 17. Soft tissues: Diverticulosis is seen, without findings of active diverticulitis. No dilated loops of bowel are seen. No significant free fluid can be seen. No pelvic masses are seen. No enlarged inguinal or pelvic lymph nodes can be seen. No groin hernias are seen. There is a trace periumbilical hernia present. IMPRESSION: No imaging explanation is found for this patient's presenting symptoms, to the limits of this study. Bilateral hip arthroplasty hardware is seen, without findings of failure or loosening. Incidental note is made of: Diverticulosis is seen, without findings of active diverticulitis. Dictated by: Lion Combs M.D. on 07/14/2019 at 8:05 MDM Narrative Medical decision making narrative: Patient is no sign of loosening hardware on x-ray or CT. He has no real specific injury. She is at risk for worsening osteoporosis due to medication that she is on and are ready underlying disease. She is scheduled for a DEXA scan next week. She is has been given oxycodone for pain in the ED has helped some. Discharge Plan Departure Patient Disposition: Home Clinical Impression: Groin strain Qualifiers: Encounter type: initial encounter Laterality: left Qualified Code(s): S76.212A - Strain of adductor muscle, fascia and tendon of left thigh, initial encounter Discharge Date/Time: 07/14/19 09:43 Instructions: DI for Groin Strain Activity Restrictions/Additional Instructions: *You have been diagnosed with left groin strain *What to do: Increase activity as tolerated CT scan and x-ray do not show any loosening or abnormality of the hardware no fracture or broken bones noted either. Recommend using walker to get around *Continue to take medications as directed Percocet 1 tablet every 6 hours only if needed for severe pain *Follow up with your primary care provider in 2-3 days *Return to ER if you should have increasing pain inability to bear weight or any new, worsening or concerning symptoms CONTROLLED SUBSTANCE DISCHARGE (Narcotoic/benzodiazepine/Flexeril/Phenergan) 1. You have been prescribed narcotic medications, it does have acetaminophen/Tylenol/paracetamol in it so do not take extra Tylenol or Tylenol containing products 2. Please understand that we cannot provide further refills of narcotics, benzodiazepines or controlled substances through the ED and her pain management will need to be through your provider. 3. While on these medications you cannot drive or operate heavy machinery. 4. You cannot sign legal documents or perform any duties such as this. 5. As long as you're taking opiate pain medications he should also be taking a stool softener such as Colace, Dulcolax, MiraLAX or prune juice, to help avoid constipation. Prescriptions: New oxycodone-acetaminophen [Percocet] 5-325 mg tablet 1 tab PO Q6H PRN (Reason: pain) Qty: 10 RF: 0 No Action losartan 25 mg tablet 25 mg PO DAILY RF: 0 atorvastatin 20 mg tablet 20 mg PO DAILY RF: 0 omeprazole 20 mg capsule,delayed release(DR/EC) 20 mg PO DAILY RF: 0 timolol 0.5 % drops 1 drop EYE-BOTH DAILY RF: 0 tramadol 50 MG tablet 1 - 2 tab PO Q4HP PRNQty: 10 RF: 0 docusate sodium [Colace] 100 MG capsule 100 mg PO BIDP PRNQty: 20 RF: 0 Referrals: Kami Ballesteros MD [Primary Care Provider] -
--- NOTE | 2019-07-14 08:36 | DI.CT.S_ITS ---
PROCEDURE: CT PEL WO CON INDICATIONS: severe pain unable to bear weight left side TECHNIQUE: Noncontrast 3 mm axial sections acquired through the bony pelvis, with coronal and sagittal reformatting. COMPARISON: [facility], CR, XR HIP W PEL IF DONE LT 2V, 07/14/2019, 7:56. [facility], CR, ABDOMEN 2 VIEW, 08/09/2017, 10:53. FINDINGS: Image quality: There is streak artifact related to the patient's metallic hardware. Metal suppression algorithm is used, with partial reduction of the artifact. Bones: Bilateral hip arthroplasty hardware is seen. No findings of hardware failure or hardware loosening are seen. No fractures or dislocations are seen. No focal bony abnormalities can be seen. Lower lumbar spine degenerative changes are partially seen. There is prominent fusion of the left sacroiliac joint, as on series 2 image 17. Soft tissues: Diverticulosis is seen, without findings of active diverticulitis. No dilated loops of bowel are seen. No significant free fluid can be seen. No pelvic masses are seen. No enlarged inguinal or pelvic lymph nodes can be seen. No groin hernias are seen. There is a trace periumbilical hernia present. IMPRESSION: No imaging explanation is found for this patient's presenting symptoms, to the limits of this study. Bilateral hip arthroplasty hardware is seen, without findings of failure or loosening. Incidental note is made of: Diverticulosis is seen, without findings of active diverticulitis. Dictated by: Lion Combs M.D. on 07/14/2019 at 8:05 Approved by: Lion Combs M.D. on 07/14/2019 at 8:10
[2019-07-14] MEDS: OXYCODONE/ACETAMINOPHEN 5/325 TABLET 1 TAB PO (09:11)
[2019-07-14 09:43] VITALS: BP 132/78; PULSE 84; RESP 16; O2SAT 97
== END 2019-07-14 09:43 | disposition home or self-care (01) ==
PROVIDERS: Emergency Provider Emergency Medicine; PCP Student in an Organized Health Care Education/Training Program
DX: S76.212A Strain of adductor muscle, fascia and tendon of left thigh, initial encounter (principal); Z96.643 Presence of artificial hip joint, bilateral
CPT/HCPCS: 72192; 73502; 99282; 99284

== ENCOUNTER → 2019-07-16 10:47 | Outpatient (CLI) | payer MEDICARE, OTHER, SELFPAY ==
--- NOTE | 2019-07-17 09:28 | DIET.PN ---
Dietary Note Nutrition Initial Assessment:? ASSESS:???Mrs. Stauffer is a 69 yof referred for pre-diabetes and obesity. She presents with several complications and concerns including 2 hip replacements, knee pain w/ ACL surgery, severe arthritis, Osteoporosis, HX of breast cancer w/ radiation therapy and GI bleed. She has a hiatal hernia w/ GI bleed and is unable to take NSAIDS for pain. She suffers from constipation for which she takes metamusil. She is currently taking a medication which she reports has several side effects including bone health and constipation. 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 She has several questions regarding food for weight loss, osteoporosis, and anti-inflammatory. She does not currently monitor her BG. ? LABS: Per pt report:? A1c: 5.8% H Chol: 150 T H LDL: 52 HDL: 41 ? MEDS:?? statin, medication for post radiation therapy ? DIET: Per 24-hour recall:? B: Yogurt w/ berries and granola or grain bread w/ avocado, ham, and pineapple L: Soup or Leftovers D: Spaghetti or [place] Sn: oranges/pineapple, almonds ? Weight: 188 lb Ht:? 63 in IBW: 115 lb BMI: 33.3 ? Exercise:? none at this time. NUTRITION DX 1. Overweight/Obesity w/ impared glucose intolerance related to excessive energy intake, food- and nutrition-related knowledge deficit as evidenced by pt report, overconsumption of high-fat/carb and/or energy dense foods, lack of physical activity, BMI more than normative standards for age and sex (obese class III).? EER: 1500 jj @ 30 jj/kg IBW (500 jj deficit for weight loss) 80 g pro @ 1.5 g/kg IBW INTERVENTION(s): 1. Discussed caloric/macronutrient needs for ht, wt, activity level and weight loss. Created calorie goal of 1500 (30 jj/kg IBW + 500 calorie deficit for 1 lb/wk weight loss). 2. Discussed the effect of carbohydrates/protein/fat on blood sugar and weight control.? Stressed importance of consistent carbohydrate intake at each meal and provided instructions for recommended servings/portions of carbohydrates/protein per meal. Provided pt with educational material. 3. Reviewed carbohydrate counting and measuring carbohydrate content via servings sizes and reading nutrition labels.? Provided handouts.?? 4. Discussed the difference between simple versus complex carbohydrates and the effect of fiber on blood sugar and cholesterol control.? Discussed various methods to increase fiber content in diet. 5. Stressed importance of meal timing and not going >4-5 hours between meals. Encouraged utilizing the plate method to ensure meals are coming from all food sources. 6. Discussed importance of food preparation to encourage healthy eating, portion control, and prevent hunger/over snacking. 7. Discussed healthy weight loss goals of 1-2lbs per week through diet and exercise.? Pt agreeable to keeping a daily food record including portions. 8. Reviewed sources of anti-inflammatory foods. Provided list. 9. Discussed importance of calcium and vitamin D for bone health. Reviewed [employer] and food sources for best absorption. 10. Discussed importance of physical activity for weight loss and bone health. Discussed local options including pool, local fitness facility. Patient expressed interest in attending cardiopulmonary rehab program. Goals: 1. Pt would like to lose 10 lbs (~5%) body weight in the next 1-2 months through dietary changes. 2. Pt agreed to keep a food record to discuss with RD at follow up appt. MONITOR/EVALUATE: Anticipate good compliance.? Pt will call for f/u.
== END ==
PROVIDERS: PCP Student in an Organized Health Care Education/Training Program; Visit Provider Student in an Organized Health Care Education/Training Program
DX: R73.03 Prediabetes (principal); E66.9 Obesity, unspecified; Z68.33 Body mass index [BMI] 33.0-33.9, adult; Z71.3 Dietary counseling and surveillance; K59.00 Constipation, unspecified
CPT/HCPCS: 97802

== ENCOUNTER → 2020-04-20 10:17 | Outpatient (CLI) | payer MEDICARE, OTHER, SELFPAY | PROVIDERS: PCP Student in an Organized Health Care Education/Training Program; Visit Provider Physician Assistant | DX: R30.0 Dysuria (principal) | CPT/HCPCS: 87077; 87086; 87186 ==

== ENCOUNTER → 2020-07-06 10:44 | Outpatient (CLI) | payer MEDICARE, OTHER, SELFPAY ==
[2020-07-08 08:20] LABS: COVID19 Sendout Not Detected (Not Detect)
== END ==
PROVIDERS: PCP Student in an Organized Health Care Education/Training Program; Visit Provider Physician Assistant
DX: Z11.59 Encounter for screening for other viral diseases (principal)
CPT/HCPCS: 87635

== ENCOUNTER 2020-07-09 08:26 | Day surgery (SDC) | payer MEDICARE, OTHER, SELFPAY ==
[2020-07-06 09:28] VITALS: BMI 32.8
[2020-07-09] VITALS (7 sets, daily range): BP systolic 113–135; BP diastolic 42–93; PULSE 76–99; RESP 4–20; TEMP 36.6–37; O2SAT 96–97; BMI 32.6
--- NOTE | 2020-07-09 | PATH_ITS ---
[facility] Accession Number: [id number] . 01 Material submitted: . endometrium - ENDOMETRIAL CURETTINGS . 01 Clinical history: . D/C HYSTEROSCOPY W/? POLYPECTOMY . 02 Diagnosis: Endometrial Curettage: Scant superficial strips of endometrial mucosa; please see comment. No evidence of atypical hyperplasia or malignancy. MRV 07/14/2020 1327 Local . 02 Comment: The histologic findings are suggestive of endometrial atrophy. That said, if clinical suspicion for an endometrial neoplasm persists, a repeat biopsy may be contributory. . 02 Electronically signed: . Tacho Carl MD, PhD, Pathologist NPI- [id number] . 01 Gross description: . The specimen is received in formalin, labeled endometrial curettings and consists of multiple garcia-pink fragments of soft tissue and mucous measuring 1.5 x 1.0 x 0.3 cm in aggregate. The specimen is filtered and entirely submitted in cassette A1. ([id number]) /[facility] 07/10/2020 1553 Local . 02 Pathologist provided ICD-10: N85.8 . 02 CPT . 830893 Performed at: 01 [facility] [address], [place], [place] [id number] MD Francisco Valle MD Phone: [phone] Performed at: 02 [facility] [address] [place], [place] [id number] MD Brneda Levine MD Phone: [phone]
--- NOTE | 2020-07-09 08:57 | PM.HP.1 ---
History of Present Illness History of Present Illness Date Patient Seen: 07/09/20 Time Patient Seen: 08:57 Chief complaint: D&C HYSTEROSCOPY W/? POLYPECTOMY Narrative: Patient is a 70-year-old 3 para 2 with endometrial hyperplasia on previous tamoxifen use. Patient is here for a D&C hysteroscopy. Patient used 400 intra vaginal Cytotec last evening. Patient History Medical History (Updated 07/06/20 @ 09:36 by Dayna Rivera RN) Breast cancer (Acute) C2 cervical fracture (Acute) DVT (deep venous thrombosis) (Acute) HLD (hyperlipidemia) (Acute) HTN (hypertension) (Acute) Use of tamoxifen (Nolvadex) (Acute) Uterine polyp (Acute) UTI (urinary tract infection) (Acute) Surgical History (Updated 07/06/20 @ 09:35 by Dayna Rivera RN) History of bilateral hip arthroplasty (Acute) History of lumpectomy of right breast (Acute 12/25/18) Family & Social History Social History: household members spouse Tobacco & Substance use: Smoking Status Never smoker alcohol intake never Meds Home Medications and Allergies Home Medications Medication Instructions Recorded Confirmed Type atorvastatin 20 mg tablet 20 mg PO DAILY 04/09/18 07/09/20 History losartan 25 mg tablet 50 mg PO DAILY 04/09/18 07/09/20 History denosumab 60 mg/mL subcutaneous 60 mg SUBCUT [id number] 04/20/20 07/06/20 History syringe aspirin 81 mg DAILY 05/12/20 07/06/20 History diclofenac sodium [Voltaren] 2 g TOPICAL BID 05/12/20 07/09/20 History docusate sodium [Colace] 100 mg PO BIDP PRN 05/12/20 07/06/20 History tamoxifen 20 mg PO DAILY 05/12/20 07/09/20 History Allergies Allergy/AdvReac Type Severity Reaction Status Date / Time Penicillins [PENICILLINS] Allergy Severe gi Verified 06/02/20 13:33 hydromorphone [From Dilaudid] Allergy Intermediate Hallucinati Verified 07/09/20 08:13 ng letrozole Allergy Verified 06/02/20 13:33 lisinopril Allergy Verified 06/02/20 13:33 Exam Vital Signs (past 8 hours): HEENT: No thyromegaly, no anterior cervical or supraclavicular lymphadenopathy. Lungs:Clear to auscultation bilaterally, no wheezes. Cardiovascular: Regular rate and rhythm, no murmurs, rubs, or gallops. Abdomen: No scars. No hepatosplenomegaly. No masses palpable. External genitalia: Normal Vagina: Normal Cervix: Stenotic Bimanual exam: 5 Week size uterus. Mobile. Rectal: No masses. Assessment & Plan Assessment & Plan narrative: Assessment: 70-year-old 3 para 2 with endometrial hyperplasia and recent tamoxifen use Plan: D&C hysteroscopy The risks, benefits, and alternatives to the procedure were explained to the patient. The risks including bleeding, infection, and uterine perforation. She understands these risks and agrees to proceed. A full par Q was held and consent form was signed. COVID-19 COVID-19 status: Negative Result date/Date tested (Pos, Neg/Pending): 07/06/20 Time Spent With Patient Time with patient: 15-24 minutes
[2020-07-09] MEDS: LACTATED RINGERS 1,000 ML 42 ML IV (09:02)
--- NOTE | 2020-07-09 09:02 | PM.PREOP ---
Pre-operative Note COVID-19 COVID-19 status: Negative Result date/Date tested (Pos, Neg/Pending): 07/06/20 Interval Note History & Physical reviewed/Exam performed by Physician: No Changes to H&P: Yes H&P completed within 30 days and has changed as indicated here:: 07/09/20
--- NOTE | 2020-07-09 09:39 | SUR.OPER ---
Lithotomy on padded OR bed, head on pillow, arms secured on padded arm boards at <90 degrees abduction. Legs secured in padded yellow fins stirrups.
--- NOTE | 2020-07-09 09:49 | PM.GYNOP.1 ---
Operative Date/Time/Diagnoses Date of procedure: 07/09/20 Time of procedure: 09:50 Pre-op diagnosis: Endometrial hyperplasia by ultrasound Recent tamoxifen use Post-op diagnosis: same Procedure & Clinicians Procedure: Procedures Operation Date: 07/09/20 09:45 Actual Procedures Side Surgeon p Hysteroscopy D&C Not Applicable Elyssa Zelaya MD Indications: Endometrial hyperplasia on ultrasound Recent tamoxifen use Surgeon: Elyssa Zelaya Anesthesia Type: General (LMA) Operative Notes Findings: Five week size anteverted uterus Both fallopian tube ostia observed No polyps or fibroids in the uterus Closure Type: not applicable Specimen(s): endometrial curettings Estimated blood loss (mL): 5 Blood products transfused: none Procedure in detail: After informed consent was obtained, the patient was taken to the operating room where she was placed in the dorsal supine position. After adequate LMA general anesthesia was achieved, the patient was placed in the dorsal lithotomy position, and prepped and draped in the usual sterile fashion. A time-out was performed. A Jimenez speculum was placed into the vagina. A single-tooth tenaculum was placed on the anterior lip of the cervix. The uterus sounded to 5 cm. The cervical os was sequentially dilated to the # 8 Hegar dilator. The hysteroscope passed easily into the endometrial cavity. Initial inspection with the hysteroscope revealed both fallopian tube ostia. There were no polyps or fibroids visible. The hysteroscope was removed. Gentle sharp curettage was performed yielding a small amount of endometrial curettings. The instruments were removed from the uterus. The single-tooth tenaculum was removed from the anterior lip of the cervix. The bivalve speculum was removed from the vagina. Sponge, lap, and instrument counts were correct x2. The patient tolerated the procedure well, and was taken to PACU in stable condition. Complications: none Post-operative Condition: stable Disposition: PACU Plan for aftercare: Home after recovery
== END 2020-07-09 10:35 | disposition home or self-care (01) ==
LOC: OR 08:27 → AC 09:55
PROVIDERS: PCP Student in an Organized Health Care Education/Training Program; Referring Provider Student in an Organized Health Care Education/Training Program; Visit Provider Obstetrics & Gynecology
PROC: 0UDB8ZZ Extraction of Endometrium, Via Natural or Artificial Opening Endoscopic (ICD-10-PCS; CPT 58558; principal; 2020-07-09 09:45)
DX: N85.8 Other specified noninflammatory disorders of uterus (principal); Z86.718 Personal history of other venous thrombosis and embolism; E78.5 Hyperlipidemia, unspecified; I10 Essential (primary) hypertension; Z79.810 Long term (current) use of selective estrogen receptor modulators (SERMs)
CPT/HCPCS: 58558; J2250; J2704; J3010

== ENCOUNTER → 2020-11-03 09:35 | Outpatient (CLI) | payer MEDICARE, OTHER, SELFPAY ==
--- NOTE | 2020-11-03 09:38 | DI.US.S_ITS ---
LIMITED ULTRASOUND OF LEFT BREAST: 11/03/2020 CLINICAL: Left breast skin rash. Comparison is made to exams dated: 11/03/2020 mammogram - [facility], 11/05/2019 mammogram, 11/08/2018 mammogram, 11/08/2018 ultrasound, 10/24/2018 mammogram, and 10/12/2017 mammogram - [facility]. Real-time ultrasound of the left breast 6 o'clock, 8 o'clock, inframammary fold, and retroareolar regions was performed. Rob scale images of the real-time examination were reviewed. No significant abnormalities were seen sonographically in the left breast. IMPRESSION: NEGATIVE There is no sonographic evidence of malignancy in the region of clinical concern. A 1 year screening mammogram is recommended. Clinical follow-up is recommended. Exam findings were conveyed to the patient. Patient is advised to monitor for significant change. This exam was interpreted at Station ID: [id number]. Electronically Signed By: Ashok Gifford M.D. slc/:11/03/2020 12:51:04 letter sent: Clinical Evaluation Ultrasound BI-RADS: 1 Negative
--- NOTE | 2020-11-03 09:38 | DI.MG.S_ITS ---
BILATERAL DIGITAL DIAGNOSTIC MAMMOGRAM 3D/2D POST LUMPECTOMY: 11/03/2020 CLINICAL: Bilateral rash. Comparison is made to exams dated: 11/05/2019 mammogram, 11/08/2018 mammogram, 10/24/2018 mammogram, and 10/12/2017 mammogram - [facility]. There are scattered fibroglandular elements in both breasts. No significant masses, calcifications, or other findings are seen in either breast. Right breast lumpectomy appears stable. Stable benign appearing calcifications in the right breast. Stable right breast skin thickening maybe related to prior radiation. IMPRESSION: INCOMPLETE: NEEDS ADDITIONAL IMAGING EVALUATION No mammographic evidence of malignancy. A targeted left breast ultrasound is recommended and will immediately follow. This exam was interpreted at Station ID: [id number]. NOTE: For mammograms, a report in lay terms will be sent to the patient. Approximately 15% of breast malignancies will not be visualized mammographically. In the management of a palpable breast mass, a negative mammogram must not discourage biopsy of a clinically suspicious lesion. Electronically Signed By: Ashok Gifford M.D. slc/:11/03/2020 11:23:52 ACR BI-RADS Category 0: Incomplete [id number]
== END ==
PROVIDERS: PCP Student in an Organized Health Care Education/Training Program; Referring Provider Internal Medicine; Visit Provider Internal Medicine
DX: R92.8 Other abnormal and inconclusive findings on diagnostic imaging of breast (principal); C50.911 Malignant neoplasm of unspecified site of right female breast; R21 Rash and other nonspecific skin eruption
CPT/HCPCS: 76642; 77066; G0279

== ENCOUNTER 2022-02-28 07:58 | Emergency (ER) | payer MEDICARE, OTHER, SELFPAY ==
[2022-02-28] VITALS (14 sets, daily range): BP systolic 116–145; BP diastolic 59–74; PULSE 69–90; RESP 12–24; TEMP 37.1; O2SAT 97–99; BMI 34.5
--- NOTE | 2022-02-28 08:29 | DI.RAD.S_ITS ---
PROCEDURE: XR CHEST 2V INDICATIONS: shortness of breath TECHNIQUE: 2 views of the chest were acquired. COMPARISON: None. FINDINGS: Surgical changes and devices: Surgical clips in the right breast. Lungs and pleura: Lungs are clear. No pleural effusions or pneumothorax. Mediastinum: Mediastinal contours are normal. Heart size is normal. Bones and chest wall: No suspicious bony abnormalities. Soft tissues appear unremarkable. IMPRESSION: No acute cardiopulmonary disease process. Dictated by: Elisha Barajas MD, PhD on 02/28/2022 at 9:06 Approved by: Elisha Barajas MD, PhD on 02/28/2022 at 9:06
--- NOTE | 2022-02-28 08:40 | ED.SOB ---
HPI - SOB/Dyspnea General Chief Complaint: Shortness of Breath/Dyspnea Stated Complaint: States poss PE, Surg on 02/04 Time Seen by Provider: 02/28/22 08:11 Source: patient Mode of arrival: Ambulatory Limitations: no limitations History of Present Illness HPI Narrative: Patient is a 72-year-old female with history of breast cancer 2019, DVT after surgeries, possible protein C deficiency status post post giant type 3 paraesophageal hernia with partial gastric volvulus surgery was done February 04 at [facility]. She states that she stay in the hospital for about 1 week. She says she started having shortness of breath yesterday. It is more so with exertion. She says it hurts whenever she takes a deep breath. She has not had fever or chills. She denies any nausea or vomiting. She has been getting around okay. She denies has any orthopnea. She says due to previous neck surgery she always sleeps in a reclined position. Related Data Home Medications Medication Instructions Recorded Confirmed atorvastatin 20 mg tablet 20 mg PO DAILY 04/09/18 05/12/21 losartan 25 mg tablet 50 mg PO DAILY 04/09/18 05/12/21 denosumab 60 mg/mL subcutaneous 60 mg SUBCUT [id number] 04/20/20 05/12/21 syringe (Prolia) diclofenac sodium 1 % topical gel 2 g topical BID 05/12/20 05/12/21 (Voltaren) docusate sodium 100 mg capsule 100 mg PO BIDP PRN Constipation 05/12/20 05/12/21 (Colace) Tumeric 1 tab DAILY 11/11/20 05/12/21 calcium 500 mg tablet 500 mg DAILY 11/11/20 05/12/21 cholecalciferol (vitamin D3) 50 50 mcg DAILY 11/11/20 05/12/21 mcg (2,000 unit) tablet (Vitamin D3) multivitamin 1 tab DAILY 11/11/20 05/12/21 omeprazole 20 mg capsule,delayed 20 mg PRN PRN Acid Reflux 11/11/20 05/12/21 release gabapentin 300 mg tablet 300 mg PO DAILY 05/12/21 05/12/21 timolol 0.5 % eye drops 1 drp DAILY 05/12/21 05/12/21 Allergies Allergy/AdvReac Type Severity Reaction Status Date / Time Penicillins [PENICILLINS] Allergy Severe gi Verified 06/02/20 13:33 hydromorphone [From Dilaudid] Allergy Intermediate Hallucinati Verified 07/09/20 08:13 ng letrozole Allergy Verified 06/02/20 13:33 lisinopril Allergy Verified 06/02/20 13:33 Review of Systems Review of Systems Narrative: GENERAL: Denies chills, fatigue, malaise, fever, sweats, travel HEENT: Denies sinus pain, ear pain, sore throat, difficulty swallowing, neck pain RESPIRATORY: See HPI CARDIOVASCULAR: See HPI GASTROINTESTINAL: Denies nausea, vomiting, abdominal pain, diarrhea, constipation, melena. : Denies dysuria, frequency, incontinence, hematuria, urinary retention, flank pain. MUSCULOSKELETAL: Denies weakness, joint pain, or bony pain SKIN: No rash, no erythema, no pruritus NEUROLOGIC: Denies weakness, dizziness, headache, numbness, change in speech, confusion PSYCHIATRIC: No concerning psychosocial issues. 12 point review of systems is negative except for those stated above and HPI Patient History Medical History Breast cancer C2 cervical fracture DVT (deep venous thrombosis) HLD (hyperlipidemia) HTN (hypertension) Use of tamoxifen (Nolvadex) Uterine polyp UTI (urinary tract infection) Surgical History History of bilateral hip arthroplasty History of lumpectomy of right breast (12/25/18) Social History household members: spouse Smoking Status: Never smoker alcohol intake: never substance use type: does not use Smoking Status: Never smoker Substance Use Type: does not use Exam Initial Vital Signs Initial Vital Signs: Vital Signs Temperature 98.8 F 02/28/22 08:00 Pulse Rate 83 02/28/22 08:00 Respiratory Rate 18 02/28/22 08:00 Blood Pressure 134/71 02/28/22 08:00 Pulse Oximetry 97 02/28/22 08:00 Oxygen Delivery Method 02/28/22 08:00 GENERAL: Alert 72-year-old female, appears mildly pale and in no acute distress. HEENT: Head atraumatic,EOMI, pupils reactive, face symmetric, moist mucous membranes CARDIOVASCULAR: Regular rate and rhythm without murmurs, rubs or gallops. RESPIRATORY: Breath sounds equal bilaterally, no wheezes rales or rhonchi. ABDOMEN: Soft, incision site clean and dry, non tender EXTREMITIES: Normal range of motion, no clubbing or edema. Neurovascularly intact NEUROLOGICAL: Alert and oriented x4.Normal gait and speech. SKIN: Warm, dry, no laceration, no petechiae, no rashes or lesions. Course Orders Ordered: ED Orders 02/28/22 08:17 Complete Blood Count AUTO DIFF Stat Comprehensive Metabolic Panel Stat Lactate (Lactic Acid) Stat NT-proBNP (BNP-Adult 18+) Stat Prothrombin Time INR Stat Troponin & CK Cardiac Panel Stat 02/28/22 08:29 XR chest 2V Stat EKG-12 Lead Stat Measure peak expiratory flow ONCE RT Consult Eval and Treat Now 02/28/22 09:03 CT angio chest PE protocol Stat Vital Signs Vital signs: Vital Signs - 8 hr 02/28/22 11:35 02/28/22 11:36 02/28/22 11:37 Pulse Rate 90 Respiratory Rate 18 Blood Pressure 136/66 Pulse Oximetry 99 99 MDM - SOB/Dyspnea Lab Data Result diagrams: 02/28/22 08:17 02/28/22 08:17 Labs: Lab Results 02/28/22 02/28/22 02/28/22 Range/Units 08:17 08:17 08:17 WBC 6.4 (4.5-11.0) X10^3/uL RBC 4.74 (4.0-5.2) X10^6/uL Hgb 12.5 (12.0-16.0) g/dL Hct 37.4 (36-46) % MCV 78.8 L (80-100) fL MCH 26.3 (26-34) PG MCHC 33.4 (30-36) % RDW 16.3 H (11.6-14.8) % Plt Count 296 (150-400) X10^3/uL Neut % (Auto) 51.9 (50-75) % Lymph % (Auto) 29.5 (25-40) % Mobile % (Auto) 11.6 (3-14) % Eos % (Auto) 5.8 H (2-4) % Baso % (Auto) 1.2 (0-2) % Neut # (Auto) 3300 (0483-6682) /uL Lymph # (Auto) 1900 (2736-4850) /uL Mobile # (Auto) 700 (0-900) /uL Eos # (Auto) 400 (0-450) /uL Baso # (Auto) 100 (0-100) /uL PT 11.9 (10.1-12.7) SECONDS INR 1.1 (0.9-1.3) Sodium 137 (137-145) mmol/L Potassium 4.5 (3.4-5.1) mmol/L Chloride 109 H (98-107) mmol/L Carbon Dioxide 18 L (22-32) mmol/L BUN 10 (7-17) mg/dL Creatinine 0.62 (0.52-1.04) mg/dL Estimated GFR > 60 (>60) mL/min BUN/Creatinine Ratio 16.1 (6-22) Glucose 110 (80-110) mg/dL Lactate (0.7-2.1) mmol/L Calcium 9.3 (8.4-10.2) mg/dL Total Bilirubin 0.5 (0.2-1.3) mg/dL AST 28 (14-36) IU/L ALT 21 (<35) IU/L Alkaline Phosphatase 106 (38-126) U/L Total Creatine Kinase (30-135) U/L CK-MB (CK-2) CK-MB (CK-2) Rel Index Troponin I (0.01-0.034) ng/mL NT-Pro-B Natriuret Pep 103 (<125) pg/mL Total Protein 7.3 (6.3-8.2) g/dL Albumin 4.1 (3.5-5.0) g/dL Globulin 3.2 (1.7-4.1) g/dL Albumin/Globulin Ratio 1.3 (1.0-2.8) 02/28/22 02/28/22 Range/Units 08:17 08:17 WBC (4.5-11.0) X10^3/uL RBC (4.0-5.2) X10^6/uL Hgb (12.0-16.0) g/dL Hct (36-46) % MCV (80-100) fL MCH (26-34) PG MCHC (30-36) % RDW (11.6-14.8) % Plt Count (150-400) X10^3/uL Neut % (Auto) (50-75) % Lymph % (Auto) (25-40) % Mobile % (Auto) (3-14) % Eos % (Auto) (2-4) % Baso % (Auto) (0-2) % Neut # (Auto) (5846-9326) /uL Lymph # (Auto) (8748-1013) /uL Mobile # (Auto) (0-900) /uL Eos # (Auto) (0-450) /uL Baso # (Auto) (0-100) /uL PT (10.1-12.7) SECONDS INR (0.9-1.3) Sodium (137-145) mmol/L Potassium (3.4-5.1) mmol/L Chloride (98-107) mmol/L Carbon Dioxide (22-32) mmol/L BUN (7-17) mg/dL Creatinine (0.52-1.04) mg/dL Estimated GFR (>60) mL/min BUN/Creatinine Ratio (6-22) Glucose (80-110) mg/dL Lactate 2.0 (0.7-2.1) mmol/L Calcium (8.4-10.2) mg/dL Total Bilirubin (0.2-1.3) mg/dL AST (14-36) IU/L ALT (<35) IU/L Alkaline Phosphatase (38-126) U/L Total Creatine Kinase 22 L (30-135) U/L CK-MB (CK-2) TNP CK-MB (CK-2) Rel Index TNP Troponin I < 0.012 (0.01-0.034) ng/mL NT-Pro-B Natriuret Pep (<125) pg/mL Total Protein (6.3-8.2) g/dL Albumin (3.5-5.0) g/dL Globulin (1.7-4.1) g/dL Albumin/Globulin Ratio (1.0-2.8) Imaging Data Chest x-ray: Radiologist's Impression: [address] [address] XRay Report Signed Patient: Cande Stauffer MR#: [id number] : 1950 Acct:[id number] Age/Sex: 72 / F Date of Service: 02/28/22 Loc: ED Accession Number: [id number] ?? Procedure: XR chest 2V Ordering Provider: Malia Lopez D.O. PROCEDURE:? XR CHEST 2V ? INDICATIONS:? shortness of breath ? TECHNIQUE:? 2 views of the chest were acquired.? ? COMPARISON:? None. ? FINDINGS:? ? Surgical changes and devices:? Surgical clips in the right breast.? ? Lungs and pleura:? Lungs are clear.? No pleural effusions or pneumothorax.? ? Mediastinum:? Mediastinal contours are normal.? Heart size is normal.? ? Bones and chest wall:? No suspicious bony abnormalities.? Soft tissues appear unremarkable.? ? IMPRESSION:? No acute cardiopulmonary disease process. ? ? Dictated by: Elisha Barajas MD, PhD on 02/28/2022 at 9:06?? CT scan - chest: Radiologist's Impression: Signed Patient: Cande Stauffer MR#: [id number] : 1950 Acct:[id number] Age/Sex: 72 / F Date of Service: 02/28/22 Loc: ED Accession Number: [id number] ?? Procedure: CT angio chest PE protocol Ordering Provider: Malia Lopez D.O. PROCEDURE:? CT ANGIO CHEST PE PROTOCOL ? INDICATIONS:? sob with hx of pe s/p surgery ? TECHNIQUE:? After the administration of intravenous contrast, 2 mm thick sections acquired from the pulmonary apices to the posterior costophrenic angles.? 3-dimensional maximum intensity projection (MIP) coronal and sagittal reformats were then acquired through the thorax.? For radiation dose reduction, the following was used:? automated exposure control, adjustment of mA and/or kV according to patient size.? ? COMPARISON:? [facility], , XR CHEST 2V, 02/28/2022, 8:27. ? FINDINGS:? Image quality:? Excellent.? ? Pulmonary arteries:? Pulmonary arteries are normal in size, and demonstrate no intraluminal filling defects to suggest central pulmonary embolism.? ? Lungs and pleura:? Small focus of reticular opacities are noted in the lateral right upper lobe.? No pleural effusions or pneumothorax.? Central and peripheral airways are patent.? ? Mediastinum:? Heart size is normal, without pericardial effusion.? No mediastinal or hilar adenopathy.? Thoracic aorta is normal in caliber and enhancement.? There is prominent circumferential thickening of the distal esophagus with hiatal hernia.? Presumed surgical suture is noted at the proximal aspect of the stomach.? This area is poorly defined and appears to demonstrate soft tissue thickening. ? Bones and chest wall:? No suspicious bony lesions.? Ribs and thoracic spine appear intact throughout.? Thyroid gland is unremarkable.? No axillary or supraclavicular adenopathy.? ? Abdomen:? Mild appearance of subcutaneous fat stranding is noted along the anterior abdomen also extending to the anterior abdominal fat adjacent to the liver and stomach.? No focal fluid collection.? Otherwise, visualized upper abdominal solid organs appear normal in the early arterial phase of enhancement.? ? IMPRESSION:? ? No pulmonary embolism. ? Thickened distal esophagus with hiatal hernia.? Surgical sutures are noted at the proximal stomach with overall appearance of thickening.? Thickening may be secondary to incomplete distention and/or recent postoperative change.? In addition, stranding is noted within the anterior subcutaneous fat extending to the anterior abdominal fat adjacent to the stomach likely related to recent surgery.? No focal fluid collection.? ? Dictated by: Shannon Schmid M.D. on 02/28/2022 at 9:17 ? ? ECG Data Interpretation: Normal sinus rhythm rate 88 MT interval 148 QRS 78 QTC 420 some be S wave noted in lead 3, no S-wave in lead [address] changes MDM Narrative Medical decision making narrative: The patient has risk factors for pulmonary embolism she has had many surgeries frequently with blood clot after. She is short of breath with exertion, but not hypoxic. CT is negative but does show some postoperative changes. No calf pain. No sign of infection. Blood work is overall reassuring. She has been up to the restroom few times without any difficulty. At this time pain may be related to postoperative pain. But no postoperative complication. Discharge Plan Departure Patient Disposition: Home Clinical Impression: Atypical chest pain, Post-op pain Instructions: DI for Atypical Chest Pain Activity Restrictions/Additional Instructions: *You have been diagnosed with atypical chest pain, postoperative pain *What to do: At this time blood work and CT scan are overall reassuring. No evidence of blood clot. Likely some swelling and inflammation from your recent surgery. Please follow-up with your surgeon as indicated *Continue to take medications as directed Tylenol 1000 mg every 8 hours if needed for [id number] *Follow up with your primary care provider in 2-3 days or call [phone] *Return to ER if you should have increasing pain shortness of breath weakness fever, vomiting or any new, worsening or concerning symptoms Prescriptions: No Action losartan 25 mg tablet 50 mg PO DAILY atorvastatin 20 mg tablet 20 mg PO DAILY Prolia 60 mg/mL syringe 60 mg SUBCUT [id number] diclofenac sodium [Voltaren] 1 % Gel 2 g TOPICAL BID docusate sodium [Colace] 100 MG capsule 100 mg PO BIDP PRN (Reason: Constipation) multivitamin Tablet 1 tab DAILY calcium 500 mg Tablet 500 mg DAILY omeprazole 20 mg Capsule,Delayed Release(Dr/Ec) 20 mg PRN PRN (Reason: Acid Reflux) cholecalciferol (vitamin D3) [Vitamin D3] 50 mcg (2,000 unit) Tablet 50 mcg DAILY Tumeric 1 tab DAILY timolol 0.5 % Drops 1 drp DAILY gabapentin 300 mg Tablet 300 mg PO DAILY Referrals: Kami Ballesteros MD [Primary Care Provider] - Visit Report Forms: Patient Portal/API
[2022-02-28 08:44] LABS: Add Manual Diff / Slide Review NO; Basophils Absolute Auto 100 /uL (0-100); Basophils Percent Auto 1.2 % (0-2); Eosinophils Absolute Auto 400 /uL (0-450); Eosinophils Percent Auto 5.8 % (2-4); Hematocrit 37.4 % (36-46); Hemoglobin 12.5 g/dL (12.0-16.0); Lymphocytes Absolute Auto 1900 /uL (1100-4500); Lymphocytes Percent Auto 29.5 % (25-40); Mean Corpuscular HGB Conc 33.4 % (30-36); Mean Corpuscular Hemoglobin 26.3 PG (26-34); Mean Corpuscular Volume 78.8 fL (80-100); Monocytes Absolute Auto 700 /uL (0-900); Monocytes Percent Auto 11.6 % (3-14); Neutrophils Absolute Auto 3300 /uL (1500-7000); Neutrophils Percent Auto 51.9 % (50-75); Platelet Count 296 X10^3/uL (150-400); Red Blood Cell Count 4.74 X10^6/uL (4.0-5.2); Red Cell Distribution Width 16.3 % (11.6-14.8); White Blood Cell Count 6.4 X10^3/uL (4.5-11.0)
[2022-02-28 08:46] LABS: Alanine Aminotransferase 21 IU/L (<35); Albumin 4.1 g/dL (3.5-5.0); Albumin Globulin Ratio 1.3 (1.0-2.8); Alkaline Phosphatase 106 U/L (38-126); Aspartate Aminotransferase 28 IU/L (14-36); BUN Creatinine Ratio 16.1 (6-22); Bilirubin Total 0.5 mg/dL (0.2-1.3); Blood Urea Nitrogen 10 mg/dL (7-17); Calcium 9.3 mg/dL (8.4-10.2); Carbon Dioxide 18 mmol/L (22-32); Chloride 109 mmol/L (98-107); Estimated Glomerular Filt Rate > 60 mL/min (>60); Globulin 3.2 g/dL (1.7-4.1); Glucose 110 mg/dL (80-110); HEMOLYSIS < 15 (0-50); Potassium 4.5 mmol/L (3.4-5.1); Sodium 137 mmol/L (137-145); Total Protein 7.3 g/dL (6.3-8.2)
[2022-02-28 08:53] LABS: INR 1.1 (0.9-1.3); Prothrombin Time 11.9 SECONDS (10.1-12.7)
[2022-02-28 08:55] LABS: NT-proBNP (BNP-Adult 18+) 103 pg/mL (<125)
--- NOTE | 2022-02-28 09:03 | DI.CT.S_ITS ---
PROCEDURE: CT ANGIO CHEST PE PROTOCOL INDICATIONS: sob with hx of pe s/p surgery TECHNIQUE: After the administration of intravenous contrast, 2 mm thick sections acquired from the pulmonary apices to the posterior costophrenic angles. 3-dimensional maximum intensity projection (MIP) coronal and sagittal reformats were then acquired through the thorax. For radiation dose reduction, the following was used: automated exposure control, adjustment of mA and/or kV according to patient size. COMPARISON: [facility], CR, XR CHEST 2V, 02/28/2022, 8:27. FINDINGS: Image quality: Excellent. Pulmonary arteries: Pulmonary arteries are normal in size, and demonstrate no intraluminal filling defects to suggest central pulmonary embolism. Lungs and pleura: Small focus of reticular opacities are noted in the lateral right upper lobe. No pleural effusions or pneumothorax. Central and peripheral airways are patent. Mediastinum: Heart size is normal, without pericardial effusion. No mediastinal or hilar adenopathy. Thoracic aorta is normal in caliber and enhancement. There is prominent circumferential thickening of the distal esophagus with hiatal hernia. Presumed surgical suture is noted at the proximal aspect of the stomach. This area is poorly defined and appears to demonstrate soft tissue thickening. Bones and chest wall: No suspicious bony lesions. Ribs and thoracic spine appear intact throughout. Thyroid gland is unremarkable. No axillary or supraclavicular adenopathy. Abdomen: Mild appearance of subcutaneous fat stranding is noted along the anterior abdomen also extending to the anterior abdominal fat adjacent to the liver and stomach. No focal fluid collection. Otherwise, visualized upper abdominal solid organs appear normal in the early arterial phase of enhancement. IMPRESSION: No pulmonary embolism. Thickened distal esophagus with hiatal hernia. Surgical sutures are noted at the proximal stomach with overall appearance of thickening. Thickening may be secondary to incomplete distention and/or recent postoperative change. In addition, stranding is noted within the anterior subcutaneous fat extending to the anterior abdominal fat adjacent to the stomach likely related to recent surgery. No focal fluid collection. Dictated by: Shannon Schmid M.D. on 02/28/2022 at 9:17 Approved by: Shannon Schmid M.D. on 02/28/2022 at 10:09
--- NOTE | 2022-02-28 09:16 | PC.NURSE ---
Pt refused bedside commode. walked to bathroom.
[2022-02-28 11:04] LABS: Creatine Kinase 22 U/L (30-135)
[2022-02-28 11:17] LABS: Troponin I < 0.012 ng/mL (0.01-0.034)
== END 2022-02-28 11:41 | disposition home or self-care (01) ==
PROVIDERS: Emergency Provider Emergency Medicine; PCP Student in an Organized Health Care Education/Training Program
DX: R07.89 Other chest pain (principal); G89.18 Other acute postprocedural pain
CPT/HCPCS: 36415; 71046; 71275; 80053; 82550; 83605; 83880; 84484; 85025; 85610; 93005; 99284

== ENCOUNTER → 2022-03-20 11:06 | Outpatient (CLI) | payer MEDICARE, OTHER, SELFPAY | PROVIDERS: PCP Student in an Organized Health Care Education/Training Program; Visit Provider Nurse Practitioner Family | DX: R30.0 Dysuria (principal) | CPT/HCPCS: 87086 ==

== ENCOUNTER 2022-06-09 09:45 | Outpatient (RCR) | payer MEDICARE, OTHER, SELFPAY ==
--- NOTE | 2022-04-18 17:10 | PT.OIE ---
Current Diagnoses Other specified postprocedural states (04/18/22) Past Medical History (Last Reviewed 03/29/22 @ 11:48 by Renata Kirk PA-C) Breast cancer C2 cervical fracture DVT (deep venous thrombosis) HLD (hyperlipidemia) HTN (hypertension) Use of tamoxifen (Nolvadex) Uterine polyp UTI (urinary tract infection) Past Surgical History (Last Reviewed 03/29/22 @ 11:48 by Renata Kirk PA-C) History of bilateral hip arthroplasty History of lumpectomy of right breast (12/25/18) Visit Care Team Role Provider Type Kami Ballesteros MD Attending Provider Non-Staff Family Provider Primary Care Provider Referring Provider Specialty: Medical Address: [address] [place] [address], [address]; [place] [address] Email: Physical Therapy Initial Evaluation PT-OP-A Visit Information Start: 04/18/22 12:46 Freq: Status: Active Protocol: Document 04/18/22 15:19 LRN (Rec: 04/18/22 17:05 LRN [id number]) Out-Patient Physical Therapy Visit Information Visit Information Visit Type Initial Evaluation Visit Start Time 15:19 Visit Stop Time 16:17 Total Visit Minutes 58 Visit Number 1 Evaluation Information Evaluation Date 04/18/22 Precautions Precautions Fungal infection under the breasts. Verbal Restrictions from surgeon: No vaccuming, twisting, lifting no more than 10#. PMH per pt: Osteoporosis, Neuropathy of feet, History of C2 fracture - 04/10/2017. Breast CA-12/2018 f/b 6 wks radiation in [facility] with f/u care with Dr. Hurley and has chosen to stop Tamoxifen for breast CA, but stopped due to risk of uterine cancer side effects. Omar SAPPHIRE (R 2007; L 08/2008), L TKA 1948, revision 05/2009. Controlled HBP. PT-OP-B Current Condition Start: 04/18/22 12:46 Freq: Status: Active Protocol: Document 04/18/22 15:19 LRN (Rec: 04/18/22 17:05 LRN [id number]) Current Condition History of Current Condition Onset Date 02/04/22 Current Complaints GERD, lacks core strength, lacks ex program. History of Current Condition Giant level 3 hernia repair & correction of lifted stomach that was twisting esophagus and putting pressure on the lungs; surgery sewed stomach to esophagus to keep it from twisting. Severe arthritis. Has difficulty getting out of chair and would like an exercise program to help her arthritis, broken neck and abdominal problems. In last 3 weeks ago fungal infection under the breasts. Prior Treatments and Tests Verbal Restrictions from surgeon: No vaccuming, twisting, lifting no more than 10#. Exercises on home recumbent bike. Future Testing and Treatments Planned Surgeon f/u Dr. Crawley 05/11/2022 Developmental History Developmental History 2018: Broken C2, no surgery, can't turn head. Saw Ej PT . Treatment Goals Patient/Caregiver Goals Pt goals is: Strengthen core. HEP: for arthritis in hips, feet, neck, hands. Prior Functional Status Baseline Function- ADL's Independent Baseline Function- Mobility Independent Baseline Function- Gait Walked with walking sticks [place] mile [place] , 2-3x/week. Current Functional Impairments (Reported) Functional Limitations- ADL's Unable to get out of bed independently. Diffculty getting out of a chair. Unable to get out of low chair independently. Trouble doing things on the L side when bending over (tying shoes) Functional Limitations- Mobility/Gait Not able to resume walking program (can walk 1/4 mile up/ back). [place] with an outdoor walker with spouse to manage walker. Personal Factors Other Personal Factors That May Effect Needs assist of spouse to go Therapy/Recovery walk and get out of bed. Fungal infection under the breasts. Pain under the L breast where stomach was attached to the esophagus. Ongoing hx of Breast cancer & prior C2 fracture. PT-OP-C Subjective Start: 04/18/22 12:46 Freq: Status: Active Protocol: Document 04/18/22 15:19 LRN (Rec: 04/18/22 17:05 LRN [id number]) Patient Questionnaires ABC- Activity Specific Balance Confidence Scale ABC Score 26.25 ABC Functional Impairment 60 to <80% Impaired (Score 21- 40) OP-PT Pain Assessment Pain Assessment Grid Paper Pain Assessment Grid Completed Yes Location Abdomen Pain Location Details L upper medial quadrant, inferior border of ribs @ lev 2 below top of scar Intensity 4 Scale Used Numeric (0 - 10) Description Tender Frequency Intermittent Pain Aggravating Factors Changing Position,ADL's, Activity Other Pain Aggravating Factors Turning. PT-OP-H Neuro Start: 04/18/22 12:46 Freq: Status: Active Protocol: Document 04/18/22 15:19 LRN (Rec: 04/18/22 17:05 LRN [id number]) Sensation Evaluation Comments Summary Comments Neuopathy of feet. PT-OP-J Posture/Palpation/Skin Start: 04/18/22 12:46 Freq: Status: Active Protocol: Document 04/18/22 15:19 LRN (Rec: 04/18/22 17:05 LRN [id number]) Posture Evaluation Position Standing Head/C-Spine Posture Side Bent Left,Forward Head T-Spine Posture Rotation Right,Increased Kyphosis L-Spine Posture Increased Lordosis,Shifted Right Shoulder Posture (R) Elevated Scapula Posture (R) Elevated Arm Posture (L) Internally Rotated,(R) Internally Rotated Knee Posture (L) Genu Valgus,(R) Genu Valgus Comments Posture Comments Head/neck shifted R, trunk R rotated-R breast posterior to L, L lower leg ER'd. Palpation Assessment Location Abdomen Palpation Location L abdomen @ level 2 below top of scar and along medial rib border Palpation Findings Tenderness PT-OP-M Strength Start: 04/18/22 12:46 Freq: Status: Active Protocol: Document 04/18/22 15:19 LRN (Rec: 04/18/22 17:05 LRN [id number]) Trunk Strength Trunk Manual Muscle Testing Testing Position Supine Core Stabilization Pt is not able to maintain core stability with log rolling and moving of legs in supine or standing. Hip Strength Hip Manual Muscle Testing Right Flexion (L2) 2- Poor- Abduction 3 Fair Comments Hip flexion weakness due to poor core stability Left Flexion (L2) 2- Poor- Abduction 3 Fair Comments Hip flexion weakness due to poor core stability Knee Strength Knee Manual Muscle Testing Right Flexion (S2) 5 Normal Extension (L3) 5 Normal Left Flexion (S2) 5 Normal Extension (L3) 5 Normal PT-OP-Q Treatments Start: 04/18/22 12:46 Freq: Status: Active Protocol: Document 04/18/22 15:19 LRN (Rec: 04/18/22 17:05 LRN [id number]) Self-Care/Home Management Treatment Education Patient Education Body Mechanics,Home Exercise Program Other Education Educated pt in log roll transfer sit<>sup with most verbal and physical cuing with sup>sit transfer. Activities Self-Care/Home Management Activities Verbal I/S in HEP: Deep breathing for greater excursion on L anterolateral abdomen and for proper transfers at home. PT-OP-T Assessment and Plan Start: 04/18/22 12:46 Freq: Status: Active Protocol: Document 04/18/22 15:19 LRN (Rec: 04/18/22 17:05 LRN [id number]) Physical Therapy Assessment Rehab Potential Rehabilitation Potential Good Evaluation Complexity Number of Personal Factors/Comorbidities 3 or More Number of Body Systems Impaired 4 or More Clinical Presentation at Evaluation Evolving Impairments Impairments Activity Tolerance,Functional Mobility,Pain,Strength, Transfers Goals Three Impairment LE weakness due to abdominal weakness and pain. Short Term Goal (STG) Pt will be able to get out of a regular hgt chair without L abdominal pain or difficulty. STG Duration 06/03/22 County Assessor Goal (LTG) Strengthen legs with pt able able to get out of a low chair without L abdominal pain or difficulty. LTG Duration 07/17/22 Two Impairment Decreased core stability Short Term Goal (STG) Pt will be able to get out of bed independently. STG Duration 05/06/22 County Assessor Goal (LTG) Pt will be able to reach for objects on the L side (example tying shoes) when bending over without onset of sharp pain. LTG Duration 07/17/22 One Impairment Lacks appropriate self care HEP. Short Term Goal (STG) Pt will be indepedent in a general HEP for arthritic hips , feet, neck, and hands. STG Duration 06/03/22 Shelter Goal (LTG) Pt will be independent in a progressive self care core stabilization program. LTG Duration 07/17/22 Assessment Summary Assessment Pt presents with decrease function due to lack of core stability with leg movement, transfers, and gait following hernia repair 02/04/22. It is expected that progress will be slow due to pt's limitation in exercise from general arthritic neck, hip and knee pain. The pt is also dealing with a skin fungal infection and recent treatments for breast cancer. The pt has a great attitude towards physical therapy and wants to achieve greater daily functional abilities. She is also interested in having therapy at a later time for her overall arthritic pains. The pt will benefit from skilled physical therapy to work towards achieving the above stated goals. Physical Therapy Plan Frequency and Duration Frequency of Treatment 2x/Week Plan of Care Start Date 04/18/22 Plan of Care End Date 07/17/22 Therapeutic Interventions Therapeutic Interventions Gait Training,Home Exercise Program,Manual Therapy, Neuromuscular Re-education, Patient/Caregiver Education, Self-Care/Home Management,Soft Tissue Mobilization,Taping, Therapeutic Activities, Therapeutic Exercises Modalities Cold Pack/Ice Massage,Hot Packs Next Visit Focus/Plan Next Note Type Treatment Note Next Visit Plan Assess hip ER/IR strength and mobility. Assess trunk standing rot tolerance. Review log roll method for transfers in/out of bed. Educate pt in proper transfer in/out of car and with sit<> stand. Educate pt in proper body mechanics for ADLs. HEP: Deep breathing and core stab (starting with TA edcucation/ training). Educate pt in use of modalities for pain management. Exercise: Core stabilization & LE strengthening. Gait training. STM/MFR to L abdomen to improve mobility with deep breathing.
--- NOTE | 2022-04-18 17:15 | PT.OPPOC ---
Physical, Occupational & Speech Therapy At [facility] Current Diagnoses Other specified postprocedural states (04/18/22) Visit Care Team Role Provider Type Kami Ballesteros MD Attending Provider Non-Staff Family Provider Primary Care Provider Referring Provider Specialty: Medical Address: [address] [place] [address], [address] MD; [place], [address] Email: Plan Of Care PT-OP-T Assessment and Plan Start: 04/18/22 12:46 Freq: Status: Active Protocol: Document 04/18/22 15:19 LRN (Rec: 04/18/22 17:05 LRN [id number]) Physical Therapy Assessment Rehab Potential Rehabilitation Potential Good Evaluation Complexity Number of Personal Factors/Comorbidities 3 or More Number of Body Systems Impaired 4 or More Clinical Presentation at Evaluation Evolving Impairments Impairments Activity Tolerance,Functional Mobility,Pain,Strength, Transfers Goals Three Impairment LE weakness due to abdominal weakness and pain. Short Term Goal (STG) Pt will be able to get out of a regular hgt chair without L abdominal pain or difficulty. STG Duration 06/03/22 Snf Goal (LTG) Strengthen legs with pt able able to get out of a low chair without L abdominal pain or difficulty. LTG Duration 07/17/22 Two Impairment Decreased core stability Short Term Goal (STG) Pt will be able to get out of bed independently. STG Duration 05/06/22 Wireline Operator Goal (LTG) Pt will be able to reach for objects on the L side (example tying shoes) when bending over without onset of sharp pain. LTG Duration 07/17/22 One Impairment Lacks appropriate self care HEP. Short Term Goal (STG) Pt will be indepedent in a general HEP for arthritic hips , feet, neck, and hands. STG Duration 06/03/22 Snf Goal (LTG) Pt will be independent in a progressive self care core stabilization program. LTG Duration 07/17/22 Assessment Summary Assessment Pt presents with decrease function due to lack of core stability with leg movement, transfers, and gait following hernia repair 02/04/22. It is expected that progress will be slow due to pt's limitation in exercise from general arthritic neck, hip and knee pain. The pt is also dealing with a skin fungal infection and recent treatments for breast cancer. The pt has a great attitude towards physical therapy and wants to achieve greater daily functional abilities. She is also interested in having therapy at a later time for her overall arthritic pains. The pt will benefit from skilled physical therapy to work towards achieving the above stated goals. Physical Therapy Plan Frequency and Duration Frequency of Treatment 2x/Week Plan of Care Start Date 04/18/22 Plan of Care End Date 07/17/22 Therapeutic Interventions Therapeutic Interventions Gait Training,Home Exercise Program,Manual Therapy, Neuromuscular Re-education, Patient/Caregiver Education, Self-Care/Home Management,Soft Tissue Mobilization,Taping, Therapeutic Activities, Therapeutic Exercises Modalities Cold Pack/Ice Massage,Hot Packs Next Visit Focus/Plan Next Note Type Treatment Note Next Visit Plan Assess hip ER/IR strength and mobility. Assess trunk standing rot tolerance. Review log roll method for transfers in/out of bed. Educate pt in proper transfer in/out of car and with sit<> stand. Educate pt in proper body mechanics for ADLs. HEP: Deep breathing and core stab (starting with TA edcucation/ training). Educate pt in use of modalities for pain management. Exercise: Core stabilization & LE strengthening. Gait training. STM/MFR to L abdomen to improve mobility with deep breathing. Plan of Care Dates Plan of Care Start Date 04/18/22 Plan of Care End Date 07/17/22 Electronically Signed by: Rosana De La Cruz, PT 04/18/22 0147 If you are in agreement with this Plan of Care, please return a signed and dated copy. I have reviewed this Plan of Care and certify that the skilled therapy services above are required to meet the patient?s needs. Physician Signature Date Printed Name and Credentials Clinical Instructor Signature Printed Name and Credentials
--- NOTE | 2022-04-22 15:19 | PT.OTN ---
Current Diagnoses Other specified postprocedural states (04/22/22) Physical Therapy Treatment Note PT-OP-A Visit Information Start: 04/18/22 12:46 Freq: Status: Active Protocol: Document 04/22/22 14:34 LRN (Rec: 04/22/22 15:18 LRN [id number]) Out-Patient Physical Therapy Visit Information Visit Information Visit Type Treatment Note Visit Start Time 14:34 Visit Stop Time 15:14 Total Visit Minutes 40 Visit Number 2 Evaluation Information Evaluation Date 04/18/22 Precautions Precautions Fungal infection under the breasts. Verbal Restrictions from surgeon: No vaccuming, twisting, lifting no more than 10#. PMH per pt: Osteoporosis, Neuropathy of feet, History of C2 fracture - 04/10/2017. Breast CA-12/2018 f/b 6 wks radiation in [facility] with f/u care with Dr. Hurley and has chosen to stop Tamoxifen for breast CA, but stopped due to risk of uterine cancer side effects. Omar SAPPHIRE (R 2007; L 08/2008), L TKA 194, revision 05/2009. Controlled HBP. PT-OP-B Current Condition Start: 04/18/22 12:46 Freq: Status: Active Protocol: Document 04/18/22 15:19 LRN (Rec: 04/18/22 17:05 LRN [id number]) Current Condition History of Current Condition Onset Date 02/04/22 Current Complaints GERD, lacks core strength, lacks ex program. History of Current Condition Giant level 3 hernia repair & correction of lifted stomach that was twisting esophagus and putting pressure on the lungs; surgery sewed stomach to esophagus to keep it from twisting. Severe arthritis. Has difficulty getting out of chair and would like an exercise program to help her arthritis, broken neck and abdominal problems. In last 3 weeks ago fungal infection under the breasts. Prior Treatments and Tests Verbal Restrictions from surgeon: No vaccuming, twisting, lifting no more than 10#. Exercises on home recumbent bike. Future Testing and Treatments Planned Surgeon f/u Dr. Crawley 05/11/2022 Developmental History Developmental History 2018: Broken C2, no surgery, can't turn head. Saw Ej, PT . Treatment Goals Patient/Caregiver Goals Pt goals is: Strengthen core. HEP: for arthritis in hips, feet, neck, hands. Prior Functional Status Baseline Function- ADL's Independent Baseline Function- Mobility Independent Baseline Function- Gait Walked with walking sticks 1 mile [place] [employer] [place] , 2-3x/week. Current Functional Impairments (Reported) Functional Limitations- ADL's Unable to get out of bed independently. Diffculty getting out of a chair. Unable to get out of low chair independently. Trouble doing things on the L side when bending over (tying shoes) Functional Limitations- Mobility/Gait Not able to resume walking program (can walk 1/4 mile up/ back). [place] with an outdoor walker with spouse to manage walker. Personal Factors Other Personal Factors That May Effect Needs assist of spouse to go Therapy/Recovery walk and get out of bed. Fungal infection under the breasts. Pain under the L breast where stomach was attached to the esophagus. Ongoing hx of Breast cancer & prior C2 fracture. PT-OP-C Subjective Start: 04/18/22 12:46 Freq: Status: Active Protocol: Document 04/18/22 15:19 LRN (Rec: 04/18/22 17:05 [facility] [id number]) Patient Questionnaires ABC- Activity Specific Balance Confidence Scale ABC Score 26.25 ABC Functional Impairment 60 to <80% Impaired (Score 21- 40) OP-PT Pain Assessment Pain Assessment Grid Paper Pain Assessment Grid Completed Yes Location Abdomen Pain Location Details L upper medial quadrant, inferior border of ribs @ lev 2 below top of scar Intensity 4 Scale Used Numeric (0 - 10) Description Tender Frequency Intermittent Pain Aggravating Factors Changing Position,ADL's, Activity Other Pain Aggravating Factors Turning. PT-OP-H Neuro Start: 04/18/22 12:46 Freq: Status: Active Protocol: Document 04/18/22 15:19 LRN (Rec: 04/18/22 17:05 N [id number]) Sensation Evaluation Comments Summary Comments Neuopathy of feet. PT-OP-J Posture/Palpation/Skin Start: 04/18/22 12:46 Freq: Status: Active Protocol: Document 04/18/22 15:19 LRN (Rec: 04/18/22 17:05 N [id number]) Posture Evaluation Position Standing Head/C-Spine Posture Side Bent Left,Forward Head T-Spine Posture Rotation Right,Increased Kyphosis L-Spine Posture Increased Lordosis,Shifted Right Shoulder Posture (R) Elevated Scapula Posture (R) Elevated Arm Posture (L) Internally Rotated,(R) Internally Rotated Knee Posture (L) Genu Valgus,(R) Genu Valgus Comments Posture Comments Head/neck shifted R, trunk R rotated-R breast posterior to L, L lower leg ER'd. Palpation Assessment Location Abdomen Palpation Location L abdomen @ level 2 below top of scar and along medial rib border Palpation Findings Tenderness PT-OP-K Range of Motion Start: 04/18/22 12:46 Freq: Status: Active Protocol: Document 04/22/22 14:34 LRN (Rec: 04/22/22 15:18 LRN [id number]) Lumbar Spine Range of Motion Lumbar Spine Percentage Testing Position Standing Rotation Left 50 Rotation Right 25 Comments Trunk Rot with SBA Hip Goniometric Range of Motion Hip Right Passive Testing Position Supine Straight Leg Raise 75 Internal Rotation 50 External Rotation 45 Comments SLR limited by hamstring tightness. Left Passive Testing Position Supine Straight Leg Raise 60 Internal Rotation 40 External Rotation 55 Comments SLR limited due to anterior hip pain. PT-OP-M Strength Start: 04/18/22 12:46 Freq: Status: Active Protocol: Document 04/22/22 14:34 LRN (Rec: 04/22/22 15:18 LRN [id number]) Hip Strength Hip Manual Muscle Testing Right Flexion (L2) 2- Poor- Abduction 3 Fair External Rotation 2 Poor Internal Rotation 5 Normal Comments Hip flexion weakness due to poor core stability Left Flexion (L2) 2- Poor- Abduction 3 Fair External Rotation 2 Poor Internal Rotation 5 Normal Comments Hip flexion weakness due to poor core stability PT-OP-Q Treatments Start: 04/18/22 12:46 Freq: Status: Active Protocol: Document 04/22/22 14:34 LRN (Rec: 04/22/22 15:18 LRN [id number]) Therapeutic Exercises Supine Exercises PSLR Supine Exercise Name PSLR Side left Hip IR stretch Supine Exercise Name Knee to opposite shoulder, L> R Side left Reps/Minutes 3' Hip ER stretch Supine Exercise Name BKFO position for stretch, R>L Side right Reps/Minutes 3' Sitting Exercises STS Sitting Exercise Name STS Hip ER Sitting Exercise Name Hip ER strengthening Side bilateral Self-Care/Home Management Treatment Education Patient Education Home Exercise Program Other Education Reviewed log roll method for transfers in/out of bed. Activities Self-Care/Home Management Activities Issued & reviewed (extended time) HEP: Spine Hip ER stretch R>L, and sitting hip ER strengthening AROM PT-OP-T Assessment and Plan Start: 04/18/22 12:46 Freq: Status: Active Protocol: Document 04/22/22 14:34 LRN (Rec: 04/22/22 15:18 LRN [id number]) Physical Therapy Assessment Goals Three Impairment LE weakness due to abdominal weakness and pain. Short Term Goal (STG) Pt will be able to get out of a regular hgt chair without L abdominal pain or difficulty. STG Duration 06/03/22 Longterm Goal (LTG) Strengthen legs with pt able able to get out of a low chair without L abdominal pain or difficulty. LTG Duration 07/17/22 Two Impairment Decreased core stability Short Term Goal (STG) Pt will be able to get out of bed independently. STG Duration 05/06/22 Longterm Goal (LTG) Pt will be able to reach for objects on the L side (example tying shoes) when bending over without onset of sharp pain. LTG Duration 07/17/22 One Impairment Lacks appropriate self care HEP. Short Term Goal (STG) Pt will be indepedent in a general HEP for arthritic hips , feet, neck, and hands. STG Duration 06/03/22 Wood Turning Lathe Operator Goal (LTG) Pt will be independent in a progressive self care core stabilization program. LTG Duration 07/17/22 Assessment Summary Assessment Hip mobility is restricted with ER & IR, but will have difficulty improving hip IR due to pt's history of Bilateral SAPPHIRE's. She has decreased L PSLR. Pt is weak with hip ER, but normal hip IR strength. Pt is able to stand and perform trunk rot with SBA. Pt able to perform STS 70% of the time without LOB. Physical Therapy Plan Frequency and Duration Frequency of Treatment 2x/Week Plan of Care Start Date 04/18/22 Plan of Care End Date 07/17/22 Next Visit Focus/Plan Next Note Type Treatment Note Next Visit Plan Educate pt in proper transfer in/out of car and with sit<> stand using hip hinge and being fwd over toes. Educate pt in proper body mechanics for ADLs. HEP: Deep breathing and core stab ( starting with TA edcucation/ training). Educate pt in use of modalities for pain management. Exercise: Core stabilization & LE strengthening. Gait training. STM/MFR to L abdomen to improve mobility with deep breathing.
--- NOTE | 2022-04-25 12:21 | PT.OTN ---
Current Diagnoses Other specified postprocedural states (04/25/22) Physical Therapy Treatment Note PT-OP-A Visit Information Start: 04/18/22 12:46 Freq: Status: Active Protocol: Document 04/25/22 11:22 LRN (Rec: 04/25/22 12:20 LRN [id number]) Out-Patient Physical Therapy Visit Information Visit Information Visit Type Treatment Note Visit Start Time 11:22 Visit Stop Time 12:03 Total Visit Minutes 41 Visit Number 3 Evaluation Information Evaluation Date 04/18/22 Precautions Precautions Fungal infection under the breasts. Verbal Restrictions from thoracic surgeon: No vaccuming, twisting, lifting no more than 10#. PMH per pt: Osteoporosis, Neuropathy of feet, History of C2 fracture - 04/10/2017. Breast CA-12/2018 f/b 6 wks radiation in [facility] with f/u care with Dr. Hurley and has chosen to stop Tamoxifen for breast CA, but stopped due to risk of uterine cancer side effects. Omar SAPPHIRE (R 2007; L 08/2008), L TKA 194, revision 05/2009. Controlled HBP. PT-OP-B Current Condition Start: 04/18/22 12:46 Freq: Status: Active Protocol: Document 04/18/22 15:19 LRN (Rec: 04/18/22 17:05 LRN [id number]) Current Condition History of Current Condition Onset Date 02/04/22 Current Complaints GERD, lacks core strength, lacks ex program. History of Current Condition Giant level 3 hernia repair & correction of lifted stomach that was twisting esophagus and putting pressure on the lungs; surgery sewed stomach to esophagus to keep it from twisting. Severe arthritis. Has difficulty getting out of chair and would like an exercise program to help her arthritis, broken neck and abdominal problems. In last 3 weeks ago fungal infection under the breasts. Prior Treatments and Tests Verbal Restrictions from surgeon: No vaccuming, twisting, lifting no more than 10#. Exercises on home recumbent bike. Future Testing and Treatments Planned Surgeon f/u Dr. Crawley 05/11/2022 Developmental History Developmental History 2018: Broken C2, no surgery, can't turn head. Saw Ej, PT . Treatment Goals Patient/Caregiver Goals Pt goals is: Strengthen core. HEP: for arthritis in hips, feet, neck, hands. Prior Functional Status Baseline Function- ADL's Independent Baseline Function- Mobility Independent Baseline Function- Gait Walked with walking sticks 1 mile (around [employer] park x 4) , 2-3x/week. Current Functional Impairments (Reported) Functional Limitations- ADL's Unable to get out of bed independently. Diffculty getting out of a chair. Unable to get out of low chair independently. Trouble doing things on the L side when bending over (tying shoes) Functional Limitations- Mobility/Gait Not able to resume walking program (can walk 1/4 mile up/ back). Can walk around [place] park x2 with an outdoor walker with spouse to manage walker. Personal Factors Other Personal Factors That May Effect Needs assist of spouse to go Therapy/Recovery walk and get out of bed. Fungal infection under the breasts. Pain under the L breast where stomach was attached to the esophagus. Ongoing hx of Breast cancer & prior C2 fracture. PT-OP-C Subjective Start: 04/18/22 12:46 Freq: Status: Active Protocol: Document 04/25/22 11:22 LRN (Rec: 04/25/22 12:20 LRN [id number]) OP-PT Subjective Patient Comments Patient Comments Sept 7 will follow up with Thoracic surgeon. States she was heading her plants yesterday and she felt grinding at the knee with pain, something she has not felt before. No pain with getting in/out of her car. Has trouble getting in/out of spouse car because it's so high and clothes grab on seat, I don't get in it often. Has transfer cloth to get in/ out of car. PT-OP-H Neuro Start: 04/18/22 12:46 Freq: Status: Active Protocol: Document 04/18/22 15:19 LRN (Rec: 04/18/22 17:05 LRN [id number]) Sensation Evaluation Comments Summary Comments Neuopathy of feet. PT-OP-J Posture/Palpation/Skin Start: 04/18/22 12:46 Freq: Status: Active Protocol: Document 04/18/22 15:19 LRN (Rec: 04/18/22 17:05 LRN [id number]) Posture Evaluation Position Standing Head/C-Spine Posture Side Bent Left,Forward Head T-Spine Posture Rotation Right,Increased Kyphosis L-Spine Posture Increased Lordosis,Shifted Right Shoulder Posture (R) Elevated Scapula Posture (R) Elevated Arm Posture (L) Internally Rotated,(R) Internally Rotated Knee Posture (L) Genu Valgus,(R) Genu Valgus Comments Posture Comments Head/neck shifted R, trunk R rotated-R breast posterior to L, L lower leg ER'd. Palpation Assessment Location Abdomen Palpation Location L abdomen @ level 2 below top of scar and along medial rib border Palpation Findings Tenderness PT-OP-K Range of Motion Start: 04/18/22 12:46 Freq: Status: Active Protocol: Document 04/22/22 14:34 LRN (Rec: 04/22/22 15:18 LRN [id number]) Lumbar Spine Range of Motion Lumbar Spine Percentage Testing Position Standing Rotation Left 50 Rotation Right 25 Comments Trunk Rot with SBA Hip Goniometric Range of Motion Hip Right Passive Testing Position Supine Straight Leg Raise 75 Internal Rotation 50 External Rotation 45 Comments SLR limited by hamstring tightness. Left Passive Testing Position Supine Straight Leg Raise 60 Internal Rotation 40 External Rotation 55 Comments SLR limited due to anterior hip pain. PT-OP-M Strength Start: 04/18/22 12:46 Freq: Status: Active Protocol: Document 04/22/22 14:34 LRN (Rec: 04/22/22 15:18 LRN [id number]) Hip Strength Hip Manual Muscle Testing Right Flexion (L2) 2- Poor- Abduction 3 Fair External Rotation 2 Poor Internal Rotation 5 Normal Comments Hip flexion weakness due to poor core stability Left Flexion (L2) 2- Poor- Abduction 3 Fair External Rotation 2 Poor Internal Rotation 5 Normal Comments Hip flexion weakness due to poor core stability PT-OP-Q Treatments Start: 04/18/22 12:46 Freq: Status: Active Protocol: Document 04/25/22 11:22 LRN (Rec: 04/25/22 12:20 LRN [id number]) Therapeutic Exercises Sitting Exercises Knee flex Sitting Exercise Name Knee flex, resting on hands behind her. Side bilateral Equipment Used L2 Reps/Minutes 8x Comments Cuing to keep upright posture. Stopped due to R posterior knee pain w/flex LAQ Sitting Exercise Name LAQ - alternating Side bilateral Reps/Minutes 1-2 SH x 15 Comments Cuing for proper posturing. STS Sitting Exercise Name STS w/hip AB Equipment Used Lev2 TB around knees Reps/Minutes 15x 1 Comments Extra time for training for STS w/o use of hands Hip ER Sitting Exercise Name Hip ER strengthening Side bilateral Equipment Used L2 TB Reps/Minutes 15x Comments Cuing for upright trunk posturing Self-Care/Home Management Treatment Education Patient Education Home Exercise Program,Joint Protection Other Education Discussed AROM in feet prior to standing and walking to help reduce pain on initial walking. Educated and discussed proper hip hinge, using hip hinge and being fwd over toes, for sit< >stand transfer. Educated and discussed proper body mechanics for daily activities. Activities Self-Care/Home Management Activities Issued & reviewed HEP: Sitting: hip AB, knee flex/ ext, and sit<>stand. PT-OP-T Assessment and Plan Start: 04/18/22 12:46 Freq: Status: Active Protocol: Document 04/25/22 11:22 LRN (Rec: 04/25/22 12:20 LRN [id number]) Physical Therapy Assessment Goals Three Impairment LE weakness due to abdominal weakness and pain. Short Term Goal (STG) Pt will be able to get out of a regular hgt chair without L abdominal pain or difficulty. STG Duration 06/03/22 Residential Mortgage Manager Goal (LTG) Strengthen legs with pt able able to get out of a low chair without L abdominal pain or difficulty. LTG Duration 07/17/22 Two Impairment Decreased core stability Short Term Goal (STG) Pt will be able to get out of bed independently. STG Duration 05/06/22 Residential Mortgage Manager Goal (LTG) Pt will be able to reach for objects on the L side (example tying shoes) when bending over without onset of sharp pain. LTG Duration 07/17/22 One Impairment Lacks appropriate self care HEP. Short Term Goal (STG) Pt will be indepedent in a general HEP for arthritic hips , feet, neck, and hands. 04/25/22: HEP: hip AB, knee flex/ext. STG Duration 06/03/22 Halfway Goal (LTG) Pt will be independent in a progressive self care core stabilization program. LTG Duration 07/17/22 Progress Towards Goals Progress Comments Progressed HEP. Assessment Summary Assessment Pt tolerated strengthening of knees w/o pain. She feels onset of knee pain may be due to hip stretches last session and is resistive to doing as HEP due to knee pain. Pt wanting to decrease feet pain after sitting and being able to put on and tie shoes. Physical Therapy Plan Frequency and Duration Frequency of Treatment 2x/Week Plan of Care Start Date 04/18/22 Plan of Care End Date 07/17/22 Next Visit Focus/Plan Next Note Type Treatment Note Next Visit Plan Deep breathing (STM/MFR to L abdomen to improve mobility with deep breathing. ) and core stab (starting with TA edcucation/training). Educate pt in use of modalities for pain management . HEP: General feet ROM prior to sitting, and ROM neck /hands for arthritis; core and LE strengthening (note lifting weight limit). Exercise: Getting out of bed ex's. Core stabilization & LE strengthening. Gait training.
--- NOTE | 2022-04-28 16:59 | PT.OTN ---
Current Diagnoses Other specified postprocedural states (04/28/22) Physical Therapy Treatment Note PT-OP-A Visit Information Start: 04/18/22 12:46 Freq: Status: Active Protocol: Document 04/28/22 14:40 LRN (Rec: 04/28/22 15:27 LRN [id number]) Out-Patient Physical Therapy Visit Information Visit Information Visit Type Treatment Note Visit Start Time 14:40 Visit Stop Time 15:21 Total Visit Minutes 41 Visit Number 4 Evaluation Information Evaluation Date 04/18/22 Precautions Precautions Fungal infection under the breasts. Verbal Restrictions from thoracic surgeon: No vaccuming, twisting, lifting no more than 10#. PMH per pt: Osteoporosis, Neuropathy of feet, History of C2 fracture - 04/10/2017. Breast CA-12/2018 f/b 6 wks radiation in [facility] with f/u care with Dr. Hurley and has chosen to stop Tamoxifen for breast CA, but stopped due to risk of uterine cancer side effects. Omar SAPPHIRE (R 2007; L 08/2008), L TKA 194, revision 05/2009. Controlled HBP. PT-OP-B Current Condition Start: 04/18/22 12:46 Freq: Status: Active Protocol: Document 04/18/22 15:19 LRN (Rec: 04/18/22 17:05 LRN [id number]) Current Condition History of Current Condition Onset Date 02/04/22 Current Complaints GERD, lacks core strength, lacks ex program. History of Current Condition Giant level 3 hernia repair & correction of lifted stomach that was twisting esophagus and putting pressure on the lungs; surgery sewed stomach to esophagus to keep it from twisting. Severe arthritis. Has difficulty getting out of chair and would like an exercise program to help her arthritis, broken neck and abdominal problems. In last 3 weeks ago fungal infection under the breasts. Prior Treatments and Tests Verbal Restrictions from surgeon: No vaccuming, twisting, lifting no more than 10#. Exercises on home recumbent bike. Future Testing and Treatments Planned Surgeon f/u Dr. Crawley 05/11/2022 Developmental History Developmental History 2018: Broken C2, no surgery, can't turn head. Saw Ej, PT . Treatment Goals Patient/Caregiver Goals Pt goals is: Strengthen core. HEP: for arthritis in hips, feet, neck, hands. Prior Functional Status Baseline Function- ADL's Independent Baseline Function- Mobility Independent Baseline Function- Gait Walked with walking sticks 1 mile (around [employer] [place] 4) , 2-3x/week. Current Functional Impairments (Reported) Functional Limitations- ADL's Unable to get out of bed independently. Diffculty getting out of a chair. Unable to get out of low chair independently. Trouble doing things on the L side when bending over (tying shoes) Functional Limitations- Mobility/Gait Not able to resume walking program (can walk 1/4 mile up/ back). [place] walk [place] [employer] [place] x2 with an outdoor walker with spouse to manage walker. Personal Factors Other Personal Factors That May Effect Needs assist of spouse to go Therapy/Recovery walk and get out of bed. Fungal infection under the breasts. Pain under the L breast where stomach was attached to the esophagus. Ongoing hx of Breast cancer & prior C2 fracture. PT-OP-C Subjective Start: 04/18/22 12:46 Freq: Status: Active Protocol: Document 04/28/22 14:40 LRN (Rec: 04/28/22 15:27 LRN [id number]) OP-PT Subjective Patient Comments Patient Comments States she has been using her Spirometer. Swallow Test on in [facility]. Pt states she has been doing a lot of standing, causing more pain and burning in the feet; therefore doing ankle ROM before standing has helped very little. PT-OP-H Neuro Start: 04/18/22 12:46 Freq: Status: Active Protocol: Document 04/18/22 15:19 LRN (Rec: 04/18/22 17:05 LRN [id number]) Sensation Evaluation Comments Summary Comments Neuopathy of feet. PT-OP-J Posture/Palpation/Skin Start: 04/18/22 12:46 Freq: Status: Active Protocol: Document 04/18/22 15:19 LRN (Rec: 04/18/22 17:05 LRN [id number]) Posture Evaluation Position Standing Head/C-Spine Posture Side Bent Left,Forward Head T-Spine Posture Rotation Right,Increased Kyphosis L-Spine Posture Increased Lordosis,Shifted Right Shoulder Posture (R) Elevated Scapula Posture (R) Elevated Arm Posture (L) Internally Rotated,(R) Internally Rotated Knee Posture (L) Genu Valgus,(R) Genu Valgus Comments Posture Comments Head/neck shifted R, trunk R rotated-R breast posterior to L, L lower leg ER'd. Palpation Assessment Location Abdomen Palpation Location L abdomen @ level 2 below top of scar and along medial rib border Palpation Findings Tenderness PT-OP-K Range of Motion Start: 04/18/22 12:46 Freq: Status: Active Protocol: Document 04/22/22 14:34 LRN (Rec: 04/22/22 15:18 LRN [id number]) Lumbar Spine Range of Motion Lumbar Spine Percentage Testing Position Standing Rotation Left 50 Rotation Right 25 Comments Trunk Rot with SBA Hip Goniometric Range of Motion Hip Right Passive Testing Position Supine Straight Leg Raise 75 Internal Rotation 50 External Rotation 45 Comments SLR limited by hamstring tightness. Left Passive Testing Position Supine Straight Leg Raise 60 Internal Rotation 40 External Rotation 55 Comments SLR limited due to anterior hip pain. PT-OP-M Strength Start: 04/18/22 12:46 Freq: Status: Active Protocol: Document 04/22/22 14:34 LRN (Rec: 04/22/22 15:18 LRN [id number]) Hip Strength Hip Manual Muscle Testing Right Flexion (L2) 2- Poor- Abduction 3 Fair External Rotation 2 Poor Internal Rotation 5 Normal Comments Hip flexion weakness due to poor core stability Left Flexion (L2) 2- Poor- Abduction 3 Fair External Rotation 2 Poor Internal Rotation 5 Normal Comments Hip flexion weakness due to poor core stability PT-OP-Q Treatments Start: 04/18/22 12:46 Freq: Status: Active Protocol: Document 04/28/22 14:40 LRN (Rec: 04/28/22 15:27 LRN [id number]) Therapeutic Exercises Supine Exercises Pelvic Brace/TA Supine Exercise Name TA tightening training & TA w/ transfers. Reps/Minutes 10' Comments Extra time for training Deep Breathing Supine Exercise Name Deep Breathing Comments phy & v cuing to move at abdomen PSLR Supine Exercise Name PSLR Side left Manual Therapy Treatment Soft Tissue Mobilization Abdomen Body Location Abdomen Mobilization Type Myofascial Release Intensity/Depth Superficial Body Position Supine Comments STM/MFR to L abdomen to improve mobility with deep breathing. Self-Care/Home Management Treatment Education Patient Education Home Exercise Program Activities Self-Care/Home Management Activities Issued & reviewed HEP: Deep Breathing, TA/Abdominal bracing. PT-OP-T Assessment and Plan Start: 04/18/22 12:46 Freq: Status: Active Protocol: Document 04/28/22 14:40 LRN (Rec: 04/28/22 15:27 LRN [id number]) Physical Therapy Assessment Goals Three Impairment LE weakness due to abdominal weakness and pain. Short Term Goal (STG) Pt will be able to get out of a regular hgt chair without L abdominal pain or difficulty. STG Duration 06/03/22 Group Home Goal (LTG) Strengthen legs with pt able able to get out of a low chair without L abdominal pain or difficulty. LTG Duration 07/17/22 Two Impairment Decreased core stability Short Term Goal (STG) Pt will be able to get out of bed independently. STG Duration 05/06/22 Continuous Mining Machine Coal Miner Goal (LTG) Pt will be able to reach for objects on the L side (example tying shoes) when bending over without onset of sharp pain. LTG Duration 07/17/22 One Impairment Lacks appropriate self care HEP. Short Term Goal (STG) Pt will be indepedent in a general HEP for arthritic hips , feet, neck, and hands. 04/25/22: HEP: hip AB, knee flex/ext. STG Duration 06/03/22 (04/25/22: Progressed ) Group Home Goal (LTG) Pt will be independent in a progressive self care core stabilization program. 04/28/22: HEP issued: Deep Breathing, TA/Abdominal bracing. LTG Duration 07/17/22 (04/28/22: Progressed) Progress Towards Goals Progress Comments Progressed HEP. Assessment Summary Assessment Pt required much training with deep breathing and TA tightening for best response to exercise. Improved abdominal mvmt on the L side after STM/MFR. Physical Therapy Plan Frequency and Duration Frequency of Treatment 2x/Week Plan of Care Start Date 04/18/22 Plan of Care End Date 07/17/22 Next Visit Focus/Plan Next Note Type Treatment Note Next Visit Plan Review core stab (TA edcucation/training). Educate pt in use of modalities for pain management . HEP: General HEP for arthritis: feet ROM prior to sitting, ROM neck/hands for arthritis; HEP: core and LE strengthening (note lifting weight limit). Exercise: Getting out of bed ex's. Core stabilization & LE strengthening. Gait training.
--- NOTE | 2022-05-05 12:18 | PT.OTN ---
Current Diagnoses Other specified postprocedural states (05/05/22) Physical Therapy Treatment Note PT-OP-A Visit Information Start: 04/18/22 12:46 Freq: Status: Active Protocol: Document 05/05/22 11:21 LRN (Rec: 05/05/22 12:17 LRN [id number]) Out-Patient Physical Therapy Visit Information Visit Information Visit Type Treatment Note Visit Start Time 11:21 Visit Stop Time 12:07 Total Visit Minutes 46 Visit Number 5 Evaluation Information Evaluation Date 04/18/22 Precautions Precautions Fungal infection under the breasts. Verbal Restrictions from thoracic surgeon: No vaccuming, twisting, lifting no more than 10#. PMH per pt: Osteoporosis, Neuropathy of feet, History of C2 fracture - 04/10/2017. Breast CA-12/2018 f/b 6 wks radiation in [facility] with f/u care with Dr. Hurley and has chosen to stop Tamoxifen for breast CA, but stopped due to risk of uterine cancer side effects. Omar SAPPHIRE (R 2007; L 08/2008), L TKA 194, revision 05/2009. Controlled HBP. PT-OP-B Current Condition Start: 04/18/22 12:46 Freq: Status: Active Protocol: Document 04/18/22 15:19 LRN (Rec: 04/18/22 17:05 LRN [id number]) Current Condition History of Current Condition Onset Date 02/04/22 Current Complaints GERD, lacks core strength, lacks ex program. History of Current Condition Giant level 3 hernia repair & correction of lifted stomach that was twisting esophagus and putting pressure on the lungs; surgery sewed stomach to esophagus to keep it from twisting. Severe arthritis. Has difficulty getting out of chair and would like an exercise program to help her arthritis, broken neck and abdominal problems. In last 3 weeks ago fungal infection under the breasts. Prior Treatments and Tests Verbal Restrictions from surgeon: No vaccuming, twisting, lifting no more than 10#. Exercises on home recumbent bike. Future Testing and Treatments Planned Surgeon f/u Dr. Crawley 05/11/2022 Developmental History Developmental History 2018: Broken C2, no surgery, can't turn head. Saw Ej, PT . Treatment Goals Patient/Caregiver Goals Pt goals is: Strengthen core. HEP: for arthritis in hips, feet, neck, hands. Prior Functional Status Baseline Function- ADL's Independent Baseline Function- Mobility Independent Baseline Function- Gait Walked with walking sticks 1 mile (around [place] x 4) , 2-3x/week. Current Functional Impairments (Reported) Functional Limitations- ADL's Unable to get out of bed independently. Diffculty getting out of a chair. Unable to get out of low chair independently. Trouble doing things on the L side when bending over (tying shoes) Functional Limitations- Mobility/Gait Not able to resume walking program (can walk 1/4 mile up/ back). Can walk around [place] park x2 with an outdoor walker with spouse to manage walker. Personal Factors Other Personal Factors That May Effect Needs assist of spouse to go Therapy/Recovery walk and get out of bed. Fungal infection under the breasts. Pain under the L breast where stomach was attached to the esophagus. Ongoing hx of Breast cancer & prior C2 fracture. PT-OP-C Subjective Start: 04/18/22 12:46 Freq: Status: Active Protocol: Document 05/05/22 11:21 LRN (Rec: 05/05/22 12:17 LRN [id number]) OP-PT Subjective Patient Comments Patient Comments 02/28/22 was in ER due to chest pains. Got a call from oncology and was told to do bloodwork and she said no because wants her to do blood work. Not taking meds for breast cancer. Pt notes no L abdominal pain (where they looped and anchored her stomach to anterior abdominal wall), with sit<>stand. C/O pain in LLB. If twisting upper body and to the right, gets pain in L abdominal region. Has been 1-1.5 wks since having pain. PT-OP-H Neuro Start: 04/18/22 12:46 Freq: Status: Active Protocol: Document 04/18/22 15:19 LRN (Rec: 04/18/22 17:05 LRN [id number]) Sensation Evaluation Comments Summary Comments Neuopathy of feet. PT-OP-J Posture/Palpation/Skin Start: 04/18/22 12:46 Freq: Status: Active Protocol: Document 04/18/22 15:19 LRN (Rec: 04/18/22 17:05 LRN [id number]) Posture Evaluation Position Standing Head/C-Spine Posture Side Bent Left,Forward Head T-Spine Posture Rotation Right,Increased Kyphosis L-Spine Posture Increased Lordosis,Shifted Right Shoulder Posture (R) Elevated Scapula Posture (R) Elevated Arm Posture (L) Internally Rotated,(R) Internally Rotated Knee Posture (L) Genu Valgus,(R) Genu Valgus Comments Posture Comments Head/neck shifted R, trunk R rotated-R breast posterior to L, L lower leg ER'd. Palpation Assessment Location Abdomen Palpation Location L abdomen @ level 2 below top of scar and along medial rib border Palpation Findings Tenderness PT-OP-K Range of Motion Start: 04/18/22 12:46 Freq: Status: Active Protocol: Document 04/22/22 14:34 LRN (Rec: 04/22/22 15:18 LRN [id number]) Lumbar Spine Range of Motion Lumbar Spine Percentage Testing Position Standing Rotation Left 50 Rotation Right 25 Comments Trunk Rot with SBA Hip Goniometric Range of Motion Hip Right Passive Testing Position Supine Straight Leg Raise 75 Internal Rotation 50 External Rotation 45 Comments SLR limited by hamstring tightness. Left Passive Testing Position Supine Straight Leg Raise 60 Internal Rotation 40 External Rotation 55 Comments SLR limited due to anterior hip pain. PT-OP-M Strength Start: 04/18/22 12:46 Freq: Status: Active Protocol: Document 04/22/22 14:34 LRN (Rec: 04/22/22 15:18 LRN [id number]) Hip Strength Hip Manual Muscle Testing Right Flexion (L2) 2- Poor- Abduction 3 Fair External Rotation 2 Poor Internal Rotation 5 Normal Comments Hip flexion weakness due to poor core stability Left Flexion (L2) 2- Poor- Abduction 3 Fair External Rotation 2 Poor Internal Rotation 5 Normal Comments Hip flexion weakness due to poor core stability PT-OP-Q Treatments Start: 04/18/22 12:46 Freq: Status: Active Protocol: Document 05/05/22 11:21 LRN (Rec: 05/05/22 12:17 LRN [id number]) Therapeutic Exercises Supine Exercises Shldr ER/IR Supine Exercise Name Alternating Behind head/Behind back type positioning. Side bilateral Reps/Minutes 3 SH x 10 Alternate arm lifts Supine Exercise Name Alternate arm lifts w/TA Side bilateral Reps/Minutes 3 SH x 10, and for exercise 10x C. AROM Supine Exercise Name C/S Rotation Side bilateral Reps/Minutes 5 SH x 5 Pelvic Brace/TA Supine Exercise Name TA tightening training & TA w/ transfers. Reps/Minutes 10SH x 10 Comments Mild loss of TA contraction with breathing. PSLR Supine Exercise Name PSLR Side left Sitting Exercises Sit<>Supine Sitting Exercise Name Transfer training sit<>supine Reps/Minutes 1x STS Sitting Exercise Name STS w/hip AB Equipment Used Lev2 TB around knees Reps/Minutes 15x 1 Comments Extra time for training for STS w/o use of hands Self-Care/Home Management Treatment Education Patient Education Pain Management Other Education Discussed alternatives to meds for pain management, but pt taking children't tylenol and Gabapentin (primarily for R>L foot). Discussed use of MH or Ice to use to the LB with I/S for 10' with covering over modality. Activities Self-Care/Home Management Activities Issued Lev2 band for around knee with sit<>stand ex. PT-OP-T Assessment and Plan Start: 04/18/22 12:46 Freq: Status: Active Protocol: Document 05/05/22 11:21 LRN (Rec: 05/05/22 12:17 LRN [id number]) Physical Therapy Assessment Goals Three Impairment LE weakness due to abdominal weakness and pain. Short Term Goal (STG) Pt will be able to get out of a regular hgt chair without L abdominal pain or difficulty. STG Duration 06/03/22 (05/05/22: MET GOAL). Bait Man Goal (LTG) Strengthen legs with pt able able to get out of a low chair without L abdominal pain or difficulty. LTG Duration 07/17/22 Two Impairment Decreased core stability Short Term Goal (STG) Pt will be able to get out of bed independently. STG Duration 05/06/22 Intermediate Goal (LTG) Pt will be able to reach for objects on the L side (example tying shoes) when bending over without onset of sharp pain. LTG Duration 07/17/22 One Impairment Lacks appropriate self care HEP. Short Term Goal (STG) Pt will be indepedent in a general HEP for arthritic hips , feet, neck, and hands. 04/25/22: HEP: hip AB, knee flex/ext. STG Duration 06/03/22 (04/25/22: Progressed ) Bait Man Goal (LTG) Pt will be independent in a progressive self care core stabilization program. 04/28/22: HEP issued: Deep Breathing, TA/Abdominal bracing. LTG Duration 07/17/22 (04/28/22: Progressed) Progress Towards Goals Progress Comments STG #3 MET. Assessment Summary Assessment Pt demonstrates fair core stab with breathing with mild movement of abdomen. Valgus at knees makes it difficult for pt to perform hip AB with sit<>stand ex. Pt moves through ex's slowly due to discussions with her health history. Physical Therapy Plan Frequency and Duration Frequency of Treatment 2x/Week Plan of Care Start Date 04/18/22 Plan of Care End Date 07/17/22 Next Visit Focus/Plan Next Note Type Treatment Note Next Visit Plan Add STS from low surface. Strengthening LE's to improve STS transfer. HEP: General HEP for arthritis: feet ROM prior to sitting, ROM neck/hands for arthritis; HEP: core and LE strengthening (note lifting weight limit). Exercise: Getting out of bed ex's. Core stabilization & LE strengthening. Gait training.
--- NOTE | 2022-05-13 12:14 | PT.OTN ---
Current Diagnoses Other specified postprocedural states (05/13/22) Physical Therapy Treatment Note PT-OP-A Visit Information Start: 04/18/22 12:46 Freq: Status: Active Protocol: Document 05/13/22 11:26 LRN (Rec: 05/13/22 12:13 LRN [id number]) Out-Patient Physical Therapy Visit Information Visit Information Visit Type Treatment Note Visit Start Time 11:26 Visit Stop Time 12:04 Total Visit Minutes 38 Visit Number 6 Evaluation Information Evaluation Date 04/18/22 Precautions Precautions Fungal infection under the breasts. Verbal Restrictions from thoracic surgeon: No vaccuming, twisting, lifting no more than 10#. PMH per pt: Osteoporosis, Neuropathy of feet, History of C2 fracture - 04/10/2017. Breast CA-12/2018 f/b 6 wks radiation in [facility] with f/u care with Dr. Hurley and has chosen to stop Tamoxifen for breast CA, but stopped due to risk of uterine cancer side effects. Omar SAPPHIRE (R 2007; L 08/2008), L TKA 194, revision 05/2009. Controlled HBP. PT-OP-B Current Condition Start: 04/18/22 12:46 Freq: Status: Active Protocol: Document 04/18/22 15:19 LRN (Rec: 04/18/22 17:05 LRN [id number]) Current Condition History of Current Condition Onset Date 02/04/22 Current Complaints GERD, lacks core strength, lacks ex program. History of Current Condition Giant level 3 hernia repair & correction of lifted stomach that was twisting esophagus and putting pressure on the lungs; surgery sewed stomach to esophagus to keep it from twisting. Severe arthritis. Has difficulty getting out of chair and would like an exercise program to help her arthritis, broken neck and abdominal problems. In last 3 weeks ago fungal infection under the breasts. Prior Treatments and Tests Verbal Restrictions from surgeon: No vaccuming, twisting, lifting no more than 10#. Exercises on home recumbent bike. Future Testing and Treatments Planned Surgeon f/u Dr. Crawley 05/11/2022 Developmental History Developmental History 2018: Broken C2, no surgery, can't turn head. Saw Ej, PT . Treatment Goals Patient/Caregiver Goals Pt goals is: Strengthen core. HEP: for arthritis in hips, feet, neck, hands. Prior Functional Status Baseline Function- ADL's Independent Baseline Function- Mobility Independent Baseline Function- Gait Walked with walking sticks 1 mile (around [place] 4) , 2-3x/week. Current Functional Impairments (Reported) Functional Limitations- ADL's Unable to get out of bed independently. Diffculty getting out of a chair. Unable to get out of low chair independently. Trouble doing things on the L side when bending over (tying shoes) Functional Limitations- Mobility/Gait Not able to resume walking program (can walk 1/4 mile up/ back). Can walk around [employer]at park x2 with an outdoor walker with spouse to manage walker. Personal Factors Other Personal Factors That May Effect Needs assist of spouse to go Therapy/Recovery walk and get out of bed. Fungal infection under the breasts. Pain under the L breast where stomach was attached to the esophagus. Ongoing hx of Breast cancer & prior C2 fracture. PT-OP-C Subjective Start: 04/18/22 12:46 Freq: Status: Active Protocol: Document 05/13/22 11:26 LRN (Rec: 05/13/22 12:13 LRN [id number]) OP-PT Subjective Patient Comments Patient Comments Had swallow test 2 days ago and it was ok. Pt reports able to get in/out of bed independently. PT-OP-H Neuro Start: 04/18/22 12:46 Freq: Status: Active Protocol: Document 04/18/22 15:19 LRN (Rec: 04/18/22 17:05 LRN [id number]) Sensation Evaluation Comments Summary Comments Neuopathy of feet. PT-OP-J Posture/Palpation/Skin Start: 04/18/22 12:46 Freq: Status: Active Protocol: Document 04/18/22 15:19 LRN (Rec: 04/18/22 17:05 LRN [id number]) Posture Evaluation Position Standing Head/C-Spine Posture Side Bent Left,Forward Head T-Spine Posture Rotation Right,Increased Kyphosis L-Spine Posture Increased Lordosis,Shifted Right Shoulder Posture (R) Elevated Scapula Posture (R) Elevated Arm Posture (L) Internally Rotated,(R) Internally Rotated Knee Posture (L) Genu Valgus,(R) Genu Valgus Comments Posture Comments Head/neck shifted R, trunk R rotated-R breast posterior to L, L lower leg ER'd. Palpation Assessment Location Abdomen Palpation Location L abdomen @ level 2 below top of scar and along medial rib border Palpation Findings Tenderness PT-OP-K Range of Motion Start: 04/18/22 12:46 Freq: Status: Active Protocol: Document 04/22/22 14:34 LRN (Rec: 04/22/22 15:18 LRN [id number]) Lumbar Spine Range of Motion Lumbar Spine Percentage Testing Position Standing Rotation Left 50 Rotation Right 25 Comments Trunk Rot with SBA Hip Goniometric Range of Motion Hip Right Passive Testing Position Supine Straight Leg Raise 75 Internal Rotation 50 External Rotation 45 Comments SLR limited by hamstring tightness. Left Passive Testing Position Supine Straight Leg Raise 60 Internal Rotation 40 External Rotation 55 Comments SLR limited due to anterior hip pain. PT-OP-M Strength Start: 04/18/22 12:46 Freq: Status: Active Protocol: Document 04/22/22 14:34 LRN (Rec: 04/22/22 15:18 LRN [id number]) Hip Strength Hip Manual Muscle Testing Right Flexion (L2) 2- Poor- Abduction 3 Fair External Rotation 2 Poor Internal Rotation 5 Normal Comments Hip flexion weakness due to poor core stability Left Flexion (L2) 2- Poor- Abduction 3 Fair External Rotation 2 Poor Internal Rotation 5 Normal Comments Hip flexion weakness due to poor core stability PT-OP-Q Treatments Start: 04/18/22 12:46 Freq: Status: Active Protocol: Document 05/13/22 11:26 LRN (Rec: 05/13/22 12:13 LRN [id number]) Therapeutic Exercises Supine Exercises Shldr ER/IR Supine Exercise Name Alternating Behind head/Behind back type positioning. Side bilateral Reps/Minutes 30x Alternate arm lifts Supine Exercise Name Alternate arm lifts w/TA Side bilateral Reps/Minutes 10x 3 C. AROM Supine Exercise Name C/S Rotation Side bilateral Reps/Minutes 10 SH x 5 Sidelying Exercises Hip AB Sidelying Exercise Name Hip AB strengthening Side bilateral Equipment Used Pillow to support back Reps/Minutes 5x 2 R, 10x L Sitting Exercises Ankle pumps/toes ext-flex Sitting Exercise Name Ankle pumps/toes flex-ext prior to standing Side bilateral Reps/Minutes 2' Knee flex Sitting Exercise Name Knee flex Side bilateral Equipment Used L2 Reps/Minutes 1-2 SH x 15 Comments Cuing for upright posture once LAQ Sitting Exercise Name LAQ Side bilateral Equipment Used Lev2 Reps/Minutes 1-2 SH x 15 Comments Cuing for proper posturing. STS Sitting Exercise Name STS w/hip AB, 20.5 hgt (L lower leg is ER'd due to hip dysfunction) Equipment Used Lev2 TB around knees Reps/Minutes 15x 2 Comments Extra time for training for STS w/o use of hands Hip ER Sitting Exercise Name Hip ER strengthening Side bilateral Equipment Used L2 TB Reps/Minutes 15x Comments Cuing for upright trunk posturing Manual Therapy Treatment Soft Tissue Mobilization Iliopsoas Body Location Omar Iliopsoas Mobilization Type Myofascial Release Intensity/Depth Moderate Body Position Supine Comments Lying w/trunk On pillows and resting after with added pillows under legs. PT-OP-T Assessment and Plan Start: 04/18/22 12:46 Freq: Status: Active Protocol: Document 05/13/22 11:26 LRN (Rec: 05/13/22 12:13 LRN [id number]) Physical Therapy Assessment Goals Three Impairment LE weakness due to abdominal weakness and pain. Short Term Goal (STG) Pt will be able to get out of a regular hgt chair without L abdominal pain or difficulty. STG Duration 06/03/22 (05/05/22: MET GOAL). Analytical Chemistry Teacher Goal (LTG) Strengthen legs with pt able able to get out of a low chair without L abdominal pain or difficulty. LTG Duration 07/17/22 Two Impairment Decreased core stability Short Term Goal (STG) Pt will be able to get out of bed independently. STG Duration 05/06/22 (05/13/22: MET GOAL) Jail Goal (LTG) Pt will be able to reach for objects on the L side (example tying shoes) when bending over without onset of sharp pain. LTG Duration 07/17/22 One Impairment Lacks appropriate self care HEP. Short Term Goal (STG) Pt will be indepedent in a general HEP for arthritic hips , feet, neck, and hands. 04/25/22: HEP: hip AB, knee flex/ext. STG Duration 06/03/22 (04/25/22: Progressed ) Jail Goal (LTG) Pt will be independent in a progressive self care core stabilization program. 04/28/22: HEP issued: Deep Breathing, TA/Abdominal bracing. LTG Duration 07/17/22 (04/28/22: Progressed) Assessment Summary Assessment STS's create knee pain with too many repetitions and too low surface; therefore 20.5 hgt was tolerable for pt. Good release of Ilipsoas bilaterally with pt appearing to stand straighter after therapy. Physical Therapy Plan Frequency and Duration Frequency of Treatment 2x/Week Plan of Care Start Date 04/18/22 Plan of Care End Date 07/17/22 Next Visit Focus/Plan Next Note Type Treatment Note Next Visit Plan POC: Strengthening LE's to improve STS transfer from low chair (LTG #3). HEP: Getting out of bed ex's. , General HEP for arthritis: feet ROM prior to sitting, ROM neck & hands for arthritis; & Strengthening: Core and LE's (note lifting weight limit). Exercise: Core stabilization & LE strengthening. Gait training.
--- NOTE | 2022-05-31 15:22 | PT.OTN ---
Current Diagnoses Other specified postprocedural states (05/31/22) Physical Therapy Treatment Note PT-OP-A Visit Information Start: 04/18/22 12:46 Freq: Status: Active Protocol: Document 05/31/22 14:37 SP (Rec: 05/31/22 15:52 SP [id number]) Out-Patient Physical Therapy Visit Information Visit Information Visit Type Treatment Note Visit Start Time 14:37 Visit Stop Time 15:22 Total Visit Minutes 45 Visit Number 7 Number of UNIT SUPPORT REPRESENTATIVE Visits 1 Evaluation Information Evaluation Date 04/18/22 Precautions Precautions Fungal infection under the breasts. Verbal Restrictions from thoracic surgeon: No vaccuming, twisting, lifting no more than 10#. PMH per pt: Osteoporosis, Neuropathy of feet, History of C2 fracture - 04/10/2017. Breast CA-12/2018 f/b 6 wks radiation in [facility] with f/u care with Dr. Hurley and has chosen to stop Tamoxifen for breast CA, but stopped due to risk of uterine cancer side effects. Omar SAPPHIRE (R 2007; L 08/2008), L TKA 194, revision 05/2009. Controlled HBP. PT-OP-B Current Condition Start: 04/18/22 12:46 Freq: Status: Active Protocol: Document 04/18/22 15:19 LRN (Rec: 04/18/22 17:05 LRN [id number]) Current Condition History of Current Condition Onset Date 02/04/22 Current Complaints GERD, lacks core strength, lacks ex program. History of Current Condition Giant level 3 hernia repair & correction of lifted stomach that was twisting esophagus and putting pressure on the lungs; surgery sewed stomach to esophagus to keep it from twisting. Severe arthritis. Has difficulty getting out of chair and would like an exercise program to help her arthritis, broken neck and abdominal problems. In last 3 weeks ago fungal infection under the breasts. Prior Treatments and Tests Verbal Restrictions from surgeon: No vaccuming, twisting, lifting no more than 10#. Exercises on home recumbent bike. Future Testing and Treatments Planned Surgeon f/u Dr. Crawley 05/11/2022 Developmental History Developmental History 2018: Broken C2, no surgery, can't turn head. Saw Ej, PT . Treatment Goals Patient/Caregiver Goals Pt goals is: Strengthen core. HEP: for arthritis in hips, feet, neck, hands. Prior Functional Status Baseline Function- ADL's Independent Baseline Function- Mobility Independent Baseline Function- Gait Walked with walking sticks 1 mile (around [place] 4) , 2-3x/week. Current Functional Impairments (Reported) Functional Limitations- ADL's Unable to get out of bed independently. Diffculty getting out of a chair. Unable to get out of low chair independently. Trouble doing things on the L side when bending over (tying shoes) Functional Limitations- Mobility/Gait Not able to resume walking program (can walk 1/4 mile up/ back). Can walk around [place] x2 with an outdoor walker with spouse to manage walker. Personal Factors Other Personal Factors That May Effect Needs assist of spouse to go Therapy/Recovery walk and get out of bed. Fungal infection under the breasts. Pain under the L breast where stomach was attached to the esophagus. Ongoing hx of Breast cancer & prior C2 fracture. PT-OP-C Subjective Start: 04/18/22 12:46 Freq: Status: Active Protocol: Document 05/31/22 14:37 SP (Rec: 05/31/22 15:52 SP [id number]) OP-PT Subjective Patient Comments Patient Comments Pt stated honest hasn't done HEP as well as can due to helping daughter s/p surgery. She reported her anterolateral L shld hurting today after rode her recumbent bike using arms as well after returned from time at daughter's. PT-OP-H Neuro Start: 04/18/22 12:46 Freq: Status: Active Protocol: Document 04/18/22 15:19 LRN (Rec: 04/18/22 17:05 LRN [id number]) Sensation Evaluation Comments Summary Comments Neuopathy of feet. PT-OP-J Posture/Palpation/Skin Start: 04/18/22 12:46 Freq: Status: Active Protocol: Document 04/18/22 15:19 LRN (Rec: 04/18/22 17:05 LRN [id number]) Posture Evaluation Position Standing Head/C-Spine Posture Side Bent Left,Forward Head T-Spine Posture Rotation Right,Increased Kyphosis L-Spine Posture Increased Lordosis,Shifted Right Shoulder Posture (R) Elevated Scapula Posture (R) Elevated Arm Posture (L) Internally Rotated,(R) Internally Rotated Knee Posture (L) Genu Valgus,(R) Genu Valgus Comments Posture Comments Head/neck shifted R, trunk R rotated-R breast posterior to L, L lower leg ER'd. Palpation Assessment Location Abdomen Palpation Location L abdomen @ level 2 below top of scar and along medial rib border Palpation Findings Tenderness PT-OP-K Range of Motion Start: 04/18/22 12:46 Freq: Status: Active Protocol: Document 04/22/22 14:34 LRN (Rec: 04/22/22 15:18 LRN [id number]) Lumbar Spine Range of Motion Lumbar Spine Percentage Testing Position Standing Rotation Left 50 Rotation Right 25 Comments Trunk Rot with SBA Hip Goniometric Range of Motion Hip Right Passive Testing Position Supine Straight Leg Raise 75 Internal Rotation 50 External Rotation 45 Comments SLR limited by hamstring tightness. Left Passive Testing Position Supine Straight Leg Raise 60 Internal Rotation 40 External Rotation 55 Comments SLR limited due to anterior hip pain. PT-OP-M Strength Start: 04/18/22 12:46 Freq: Status: Active Protocol: Document 04/22/22 14:34 LRN (Rec: 04/22/22 15:18 LRN [id number]) Hip Strength Hip Manual Muscle Testing Right Flexion (L2) 2- Poor- Abduction 3 Fair External Rotation 2 Poor Internal Rotation 5 Normal Comments Hip flexion weakness due to poor core stability Left Flexion (L2) 2- Poor- Abduction 3 Fair External Rotation 2 Poor Internal Rotation 5 Normal Comments Hip flexion weakness due to poor core stability PT-OP-Q Treatments Start: 04/18/22 12:46 Freq: Status: Active Protocol: Document 05/31/22 14:37 SP (Rec: 05/31/22 15:52 SP [id number]) Therapeutic Exercises Supine Exercises Shldr ER/IR Supine Exercise Name Alternating Behind head/Behind back type positioning. Side bilateral Equipment Used discussed hold until feels better. Reps/Minutes 30x Comments unable to lift LUE >70 deg without pain today Alternate arm lifts Supine Exercise Name Alternate arm press into table better than lift w/TA Side bilateral Reps/Minutes 3SH x10 press Comments cant arm lift due to R anterolateral arm hurting today Pelvic Brace/TA Supine Exercise Name TA tightening training & TA w/ transfers. Equipment Used cued hand contact abdomen for self contact feedback Reps/Minutes 10SH x 10 Comments Mild loss of TA contraction with breathing. Deep Breathing Supine Exercise Name Deep Breathing Comments phy & v cuing to move at abdomen Sitting Exercises LAQ Sitting Exercise Name LAQ Side bilateral Equipment Used Lev2> AROM Reps/Minutes 1-2 SH x 15 Comments Cuing for proper posturing, caused cramp L hip flex > AROM . STS Sitting Exercise Name STS w/hip AB, 20.5 hgt (L lower leg is ER'd due to hip dysfunction) Equipment Used Lev2 TB around knees Reps/Minutes 15x 2 Comments cued for hip abd during STS arms across chest Hip ER Sitting Exercise Name Hip ER strengthening Side bilateral Equipment Used L2 TB around knees Reps/Minutes 15x Comments Cuing for upright trunk posturing Manual Therapy Treatment Soft Tissue Mobilization L neck, L shld Body Location UT, LS, pec, bicep tendon Mobilization Type Rolling,Strumming Intensity/Depth Superficial Body Position Hooklying Comments manual and discussion self, next tx add use theracane next tx didn't get to. Self-Care/Home Management Treatment Education Patient Education Body Mechanics,Joint Protection Other Education Time spent sidesleeping use pillows between BLEs, BUEs for alignment and reported less pressure on top hip and shlds. Didn't respond well to small folded towel under bottom ribcage so removed. PT-OP-T Assessment and Plan Start: 04/18/22 12:46 Freq: Status: Active Protocol: Document 05/31/22 14:37 SP (Rec: 05/31/22 15:52 SP [id number]) Physical Therapy Assessment Goals Three Impairment LE weakness due to abdominal weakness and pain. Short Term Goal (STG) Pt will be able to get out of a regular hgt chair without L abdominal pain or difficulty. STG Duration 06/03/22 (05/05/22: MET GOAL). Party Host Goal (LTG) Strengthen legs with pt able able to get out of a low chair without L abdominal pain or difficulty. LTG Duration 07/17/22 Two Impairment Decreased core stability Short Term Goal (STG) Pt will be able to get out of bed independently. STG Duration 05/06/22 (05/13/22: MET GOAL) Party Host Goal (LTG) Pt will be able to reach for objects on the L side (example tying shoes) when bending over without onset of sharp pain. LTG Duration 07/17/22 One Impairment Lacks appropriate self care HEP. Short Term Goal (STG) Pt will be indepedent in a general HEP for arthritic hips , feet, neck, and hands. 04/25/22: HEP: hip AB, knee flex/ext. STG Duration 06/03/22 (04/25/22: Progressed ) Party Host Goal (LTG) Pt will be independent in a progressive self care core stabilization program. 04/28/22: HEP issued: Deep Breathing, TA/Abdominal bracing. LTG Duration 07/17/22 (04/28/22: Progressed) Assessment Summary Assessment Pt improved response to sidelying use pillows for L hip and L shld discomfort. Improved TA supine presses today vs UE reach OH due to L shld pain. Reduced resistance to AROM for LAQ due to hip flexor cramping. Physical Therapy Plan Frequency and Duration Frequency of Treatment 2x/Week Plan of Care Start Date 04/18/22 Plan of Care End Date 07/17/22 Therapeutic Interventions Therapeutic Interventions Gait Training,Home Exercise Program,Manual Therapy, Neuromuscular Re-education, Patient/Caregiver Education, Self-Care/Home Management,Soft Tissue Mobilization,Taping, Therapeutic Activities, Therapeutic Exercises Modalities Cold Pack/Ice Massage,Hot Packs Next Visit Focus/Plan Next Note Type Treatment Note Next Visit Plan POC: Strengthening LE's to improve STS transfer from low chair (LTG #3). HEP: Getting out of bed ex's. , General HEP for arthritis: feet ROM prior to sitting, ROM neck & hands for arthritis; & Strengthening: Core and LE's (note lifting weight limit). Exercise: Core stabilization & LE strengthening. Gait training.
--- NOTE | 2022-06-03 15:18 | PT.OTN ---
Current Diagnoses Other specified postprocedural states (06/03/22) Physical Therapy Treatment Note PT-OP-A Visit Information Start: 04/18/22 12:46 Freq: Status: Active Protocol: Document 06/03/22 14:30 SP (Rec: 06/03/22 15:42 SP [id number]) Out-Patient Physical Therapy Visit Information Visit Information Visit Type Treatment Note Visit Start Time 14:35 Visit Stop Time 15:18 Total Visit Minutes 43 Visit Number 8 Number of FURNACE FITTER Visits 2 Evaluation Information Evaluation Date 04/18/22 Precautions Precautions Fungal infection under the breasts. Verbal Restrictions from thoracic surgeon: No vaccuming, twisting, lifting no more than 10#. PMH per pt: Osteoporosis, Neuropathy of feet, History of C2 fracture - 04/10/2017. Breast CA-12/2018 f/b 6 wks radiation in [facility] with f/u care with Dr. Hurley and has chosen to stop Tamoxifen for breast CA, but stopped due to risk of uterine cancer side effects. Omar SAPPHIRE (R 2007; L 08/2008), L TKA 194, revision 05/2009. Controlled HBP. PT-OP-B Current Condition Start: 04/18/22 12:46 Freq: Status: Active Protocol: Document 04/18/22 15:19 LRN (Rec: 04/18/22 17:05 LRN [id number]) Current Condition History of Current Condition Onset Date 02/04/22 Current Complaints GERD, lacks core strength, lacks ex program. History of Current Condition Giant level 3 hernia repair & correction of lifted stomach that was twisting esophagus and putting pressure on the lungs; surgery sewed stomach to esophagus to keep it from twisting. Severe arthritis. Has difficulty getting out of chair and would like an exercise program to help her arthritis, broken neck and abdominal problems. In last 3 weeks ago fungal infection under the breasts. Prior Treatments and Tests Verbal Restrictions from surgeon: No vaccuming, twisting, lifting no more than 10#. Exercises on home recumbent bike. Future Testing and Treatments Planned Surgeon f/u Dr. Crawley 05/11/2022 Developmental History Developmental History 2018: Broken C2, no surgery, can't turn head. Saw Ej, PT . Treatment Goals Patient/Caregiver Goals Pt goals is: Strengthen core. HEP: for arthritis in hips, feet, neck, hands. Prior Functional Status Baseline Function- ADL's Independent Baseline Function- Mobility Independent Baseline Function- Gait Walked with walking sticks 1 mile ([place] , 2-3x/week. Current Functional Impairments (Reported) Functional Limitations- ADL's Unable to get out of bed independently. Diffculty getting out of a chair. Unable to get out of low chair independently. Trouble doing things on the L side when bending over (tying shoes) Functional Limitations- Mobility/Gait Not able to resume walking program (can walk 1/4 mile up/ back). [email or web address]2 with an outdoor walker with spouse to manage walker. Personal Factors Other Personal Factors That May Effect Needs assist of spouse to go Therapy/Recovery walk and get out of bed. Fungal infection under the breasts. Pain under the L breast where stomach was attached to the esophagus. Ongoing hx of Breast cancer & prior C2 fracture. PT-OP-C Subjective Start: 04/18/22 12:46 Freq: Status: Active Protocol: Document 06/03/22 14:30 SP (Rec: 06/03/22 15:42 SP [id number]) OP-PT Subjective Patient Comments Patient Comments Pt stated her neck felt alot better after last tx. Her L shld little sore/pain after reaching little to far to grab door to close. PT-OP-H Neuro Start: 04/18/22 12:46 Freq: Status: Active Protocol: Document 04/18/22 15:19 LRN (Rec: 04/18/22 17:05 LRN [id number]) Sensation Evaluation Comments Summary Comments Neuopathy of feet. PT-OP-J Posture/Palpation/Skin Start: 04/18/22 12:46 Freq: Status: Active Protocol: Document 04/18/22 15:19 LRN (Rec: 04/18/22 17:05 LRN [id number]) Posture Evaluation Position Standing Head/C-Spine Posture Side Bent Left,Forward Head T-Spine Posture Rotation Right,Increased Kyphosis L-Spine Posture Increased Lordosis,Shifted Right Shoulder Posture (R) Elevated Scapula Posture (R) Elevated Arm Posture (L) Internally Rotated,(R) Internally Rotated Knee Posture (L) Genu Valgus,(R) Genu Valgus Comments Posture Comments Head/neck shifted R, trunk R rotated-R breast posterior to L, L lower leg ER'd. Palpation Assessment Location Abdomen Palpation Location L abdomen @ level 2 below top of scar and along medial rib border Palpation Findings Tenderness PT-OP-K Range of Motion Start: 04/18/22 12:46 Freq: Status: Active Protocol: Document 04/22/22 14:34 LRN (Rec: 04/22/22 15:18 LRN [id number]) Lumbar Spine Range of Motion Lumbar Spine Percentage Testing Position Standing Rotation Left 50 Rotation Right 25 Comments Trunk Rot with SBA Hip Goniometric Range of Motion Hip Right Passive Testing Position Supine Straight Leg Raise 75 Internal Rotation 50 External Rotation 45 Comments SLR limited by hamstring tightness. Left Passive Testing Position Supine Straight Leg Raise 60 Internal Rotation 40 External Rotation 55 Comments SLR limited due to anterior hip pain. PT-OP-M Strength Start: 04/18/22 12:46 Freq: Status: Active Protocol: Document 04/22/22 14:34 LRN (Rec: 04/22/22 15:18 LRN [id number]) Hip Strength Hip Manual Muscle Testing Right Flexion (L2) 2- Poor- Abduction 3 Fair External Rotation 2 Poor Internal Rotation 5 Normal Comments Hip flexion weakness due to poor core stability Left Flexion (L2) 2- Poor- Abduction 3 Fair External Rotation 2 Poor Internal Rotation 5 Normal Comments Hip flexion weakness due to poor core stability PT-OP-Q Treatments Start: 04/18/22 12:46 Freq: Status: Active Protocol: Document 06/03/22 14:30 SP (Rec: 06/03/22 15:42 SP [id number]) Therapeutic Exercises Supine Exercises leg slide Supine Exercise Name added to HEP Resistance AROM Reps/Minutes x10 each side Comments cued slow TA braced hip abd Supine Exercise Name knee fall outs- added to HEP Side bilateral Reps/Minutes x10 Comments cued core/stable pelvis still Shldr ER/IR Supine Exercise Name Alternating Behind head/Behind back type positioning. Side bilateral Equipment Used discussed hold until feels better. Reps/Minutes 30x Comments improvement in ableto reach behind head but only at side today, good core Alternate arm lifts Supine Exercise Name Alternate arm press into table better than lift for TA response Side bilateral Reps/Minutes 3SH x10 press Comments cant arm lift due to R anterolateral arm hurting today Deep Breathing Supine Exercise Name Deep Breathing Comments phy & v cuing to move at abdomen Sitting Exercises STS Sitting Exercise Name STS w/hip AB, 20.5 hgt (L lower leg is ER'd due to hip dysfunction) Equipment Used Lev2 TB around knees Reps/Minutes 15x 2 arms across chest Comments cued for hip abd during STS arms across chest Manual Therapy Treatment Soft Tissue Mobilization L neck, L shld Body Location UT, LS, pec, bicep tendon Mobilization Type Rolling,Strumming Intensity/Depth Moderate Body Position Hooklying Comments manual and discussion self, next tx add use theracane next tx didn't get to. Iliopsoas Body Location Moar Iliopsoas Mobilization Type Myofascial Release Intensity/Depth Moderate Body Position Supine Comments Lying w/trunk On pillows and resting after with added pillows under legs. PT-OP-T Assessment and Plan Start: 04/18/22 12:46 Freq: Status: Active Protocol: Document 06/03/22 14:30 SP (Rec: 06/03/22 15:42 SP [id number]) Physical Therapy Assessment Goals Three Impairment LE weakness due to abdominal weakness and pain. Short Term Goal (STG) Pt will be able to get out of a regular hgt chair without L abdominal pain or difficulty. STG Duration 06/03/22 (05/05/22: MET GOAL). Public Address System Operator Goal (LTG) Strengthen legs with pt able able to get out of a low chair without L abdominal pain or difficulty. 06/03/22: progressing: ableto get out of 20.5 chair without UE support. LTG Duration 07/17/22 progressin06/03/22 Two Impairment Decreased core stability Short Term Goal (STG) Pt will be able to get out of bed independently. STG Duration 05/06/22 (05/13/22: MET GOAL) Public Address System Operator Goal (LTG) Pt will be able to reach for objects on the L side (example tying shoes) when bending over without onset of sharp pain. LTG Duration 07/17/22 One Impairment Lacks appropriate self care HEP. Short Term Goal (STG) Pt will be indepedent in a general HEP for arthritic hips , feet, neck, and hands. 04/25/22: HEP: hip AB, knee flex/ext. 06/03/22: Initiated knee fall out, leg slide core progression. STG Duration 06/03/22 (06/03/22: Progressed ) Penitentiary Goal (LTG) Pt will be independent in a progressive self care core stabilization program. 04/28/22: HEP issued: Deep Breathing, TA/Abdominal bracing. 06/03/22: Initiated knee fall out, leg slide core progression. LTG Duration 07/17/22 (06/03/22: Progressed) Assessment Summary Assessment Pt improved with HEP review, able to perform bracing w/ initiated knee fall out and leg slide today requires occasional cues for stable pelvis. L shld able to reach behind head today for core alternating UEs. Physical Therapy Plan Frequency and Duration Frequency of Treatment 2x/Week Plan of Care Start Date 04/18/22 Plan of Care End Date 07/17/22 Therapeutic Interventions Therapeutic Interventions Gait Training,Home Exercise Program,Manual Therapy, Neuromuscular Re-education, Patient/Caregiver Education, Self-Care/Home Management,Soft Tissue Mobilization,Taping, Therapeutic Activities, Therapeutic Exercises Modalities Cold Pack/Ice Massage,Hot Packs Next Visit Focus/Plan Next Note Type Treatment Note Next Visit Plan POC: Strengthening LE's to improve STS transfer from low chair (LTG #3). HEP: Getting out of bed ex's. , General HEP for arthritis: feet ROM prior to sitting, ROM neck & hands for arthritis; & Strengthening: Core and LE's (note lifting weight limit). Exercise: Core stabilization & LE strengthening. Gait training.
--- NOTE | 2022-06-07 18:21 | PT.OTN ---
Current Diagnoses Other specified postprocedural states (06/07/22) Physical Therapy Treatment Note PT-OP-A Visit Information Start: 04/18/22 12:46 Freq: Status: Active Protocol: Document 06/07/22 09:55 LRN (Rec: 06/07/22 10:38 LRN [id number]) Out-Patient Physical Therapy Visit Information Visit Information Visit Type Progress Note Visit Start Time 09:55 Visit Stop Time 10:37 Total Visit Minutes 42 Visit Number 9 Evaluation Information Evaluation Date 04/18/22 Precautions Precautions Fungal infection under the breasts. Verbal Restrictions from thoracic surgeon: No vaccuming, twisting, lifting no more than 10#. PMH per pt: Osteoporosis, Neuropathy of feet, History of C2 fracture - 04/10/2017. Breast CA-12/2018 f/b 6 wks radiation in [facility] with f/u care with Dr. Hurley and has chosen to stop Tamoxifen for breast CA, but stopped due to risk of uterine cancer side effects. Omar SAPPHIRE (R 2007; L 08/2008), L TKA 194, revision 05/2009. Controlled HBP. PT-OP-B Current Condition Start: 04/18/22 12:46 Freq: Status: Active Protocol: Document 04/18/22 15:19 LRN (Rec: 04/18/22 17:05 LRN [id number]) Current Condition History of Current Condition Onset Date 02/04/22 Current Complaints GERD, lacks core strength, lacks ex program. History of Current Condition Giant level 3 hernia repair & correction of lifted stomach that was twisting esophagus and putting pressure on the lungs; surgery sewed stomach to esophagus to keep it from twisting. Severe arthritis. Has difficulty getting out of chair and would like an exercise program to help her arthritis, broken neck and abdominal problems. In last 3 weeks ago fungal infection under the breasts. Prior Treatments and Tests Verbal Restrictions from surgeon: No vaccuming, twisting, lifting no more than 10#. Exercises on home recumbent bike. Future Testing and Treatments Planned Surgeon f/u Dr. Crawley 05/11/2022 Developmental History Developmental History 2018: Broken C2, no surgery, can't turn head. Saw Ej, PT . Treatment Goals Patient/Caregiver Goals Pt goals is: Strengthen core. HEP: for arthritis in hips, feet, neck, hands. Prior Functional Status Baseline Function- ADL's Independent Baseline Function- Mobility Independent Baseline Function- Gait Walked with walking sticks 1 mile (around [place] x 4) , 2-3x/week. Current Functional Impairments (Reported) Functional Limitations- ADL's Unable to get out of bed independently. Diffculty getting out of a chair. Unable to get out of low chair independently. Trouble doing things on the L side when bending over (tying shoes) Functional Limitations- Mobility/Gait Not able to resume walking program (can walk 1/4 mile up/ back). [place] walk [place] [employer] [place] [place]2 with an outdoor walker with spouse to manage walker. Personal Factors Other Personal Factors That May Effect Needs assist of spouse to go Therapy/Recovery walk and get out of bed. Fungal infection under the breasts. Pain under the L breast where stomach was attached to the esophagus. Ongoing hx of Breast cancer & prior C2 fracture. PT-OP-C Subjective Start: 04/18/22 12:46 Freq: Status: Active Protocol: Document 06/07/22 09:55 LRN (Rec: 06/07/22 10:38 LRN [id number]) OP-PT Subjective Patient Comments Patient Comments L arm has been very sore when reaching to close car door and hasn't been able to lift things. Last visit alt arm lifts were ok. Has tried moving the feet before getting out of car and it might help a little bit with the pain. PT-OP-H Neuro Start: 04/18/22 12:46 Freq: Status: Active Protocol: Document 04/18/22 15:19 LRN (Rec: 04/18/22 17:05 LRN [id number]) Sensation Evaluation Comments Summary Comments Neuopathy of feet. PT-OP-J Posture/Palpation/Skin Start: 04/18/22 12:46 Freq: Status: Active Protocol: Document 04/18/22 15:19 LRN (Rec: 04/18/22 17:05 LRN [id number]) Posture Evaluation Position Standing Head/C-Spine Posture Side Bent Left,Forward Head T-Spine Posture Rotation Right,Increased Kyphosis L-Spine Posture Increased Lordosis,Shifted Right Shoulder Posture (R) Elevated Scapula Posture (R) Elevated Arm Posture (L) Internally Rotated,(R) Internally Rotated Knee Posture (L) Genu Valgus,(R) Genu Valgus Comments Posture Comments Head/neck shifted R, trunk R rotated-R breast posterior to L, L lower leg ER'd. Palpation Assessment Location Abdomen Palpation Location L abdomen @ level 2 below top of scar and along medial rib border Palpation Findings Tenderness PT-OP-K Range of Motion Start: 04/18/22 12:46 Freq: Status: Active Protocol: Document 04/22/22 14:34 LRN (Rec: 04/22/22 15:18 LRN [id number]) Lumbar Spine Range of Motion Lumbar Spine Percentage Testing Position Standing Rotation Left 50 Rotation Right 25 Comments Trunk Rot with SBA Hip Goniometric Range of Motion Hip Right Passive Testing Position Supine Straight Leg Raise 75 Internal Rotation 50 External Rotation 45 Comments SLR limited by hamstring tightness. Left Passive Testing Position Supine Straight Leg Raise 60 Internal Rotation 40 External Rotation 55 Comments SLR limited due to anterior hip pain. PT-OP-M Strength Start: 04/18/22 12:46 Freq: Status: Active Protocol: Document 04/22/22 14:34 LRN (Rec: 04/22/22 15:18 LRN [id number]) Hip Strength Hip Manual Muscle Testing Right Flexion (L2) 2- Poor- Abduction 3 Fair External Rotation 2 Poor Internal Rotation 5 Normal Comments Hip flexion weakness due to poor core stability Left Flexion (L2) 2- Poor- Abduction 3 Fair External Rotation 2 Poor Internal Rotation 5 Normal Comments Hip flexion weakness due to poor core stability PT-OP-Q Treatments Start: 04/18/22 12:46 Freq: Status: Active Protocol: Document 06/07/22 09:55 LRN (Rec: 06/07/22 10:38 LRN [id number]) Therapeutic Exercises Supine Exercises Micheal Neck Ext Supine Exercise Name Micheal Neck Ext Reps/Minutes 5 SH x 15 Comments Extra time to discuss progression of ex via reps and holding time. leg slide Supine Exercise Name added to HEP Resistance AROM Reps/Minutes 30x each side Comments cued slow TA braced hip abd Supine Exercise Name knee fall outs- added to HEP Side bilateral Reps/Minutes x20 Comments cued core/stable pelvis still and slowing of movement Alternate arm lifts Supine Exercise Name Alternate arm press into table better than lift for TA response Side bilateral Reps/Minutes 20x Comments Lifting at primarily elbows. C. AROM Supine Exercise Name C/S Rotation Side bilateral Reps/Minutes 10 SH x 5 Deep Breathing Supine Exercise Name Deep Breathing Comments phy & v cuing to move at abdomen, mild mvmt of abdomen is present Sitting Exercises Ankle AROM Sitting Exercise Name Alphabet and circles Side bilateral Reps/Minutes 1x alphabent, 10x circles. Ankle pumps/toes ext-flex Sitting Exercise Name Ankle pumps/toes flex-ext prior to standing Side bilateral Reps/Minutes 2' Knee flex Sitting Exercise Name Knee flex/ext Side bilateral Equipment Used L2 Reps/Minutes x 5 Comments Cuing for upright posture once LAQ Sitting Exercise Name LAQ Side bilateral Equipment Used Lev2> AROM Reps/Minutes x 5 Comments Cuing for proper posturing, caused cramp L hip flex > AROM . STS Sitting Exercise Name STS w/hip AB, 20.5 hgt (L lower leg is ER'd due to hip dysfunction) Equipment Used Lev2 TB around knees Reps/Minutes 2x arms across chest, 10x w/ hands Comments cued for hip abd during STS arms across chest Self-Care/Home Management Treatment Education Patient Education Home Exercise Program Activities Self-Care/Home Management Activities Issued & reviewed HEP: Ankle ROM ex's and knee AROM ex's. PT-OP-T Assessment and Plan Start: 04/18/22 12:46 Freq: Status: Active Protocol: Document 06/07/22 09:55 LRN (Rec: 06/07/22 10:38 LRN [id number]) Physical Therapy Assessment Rehab Potential Rehabilitation Potential Good Evaluation Complexity Number of Personal Factors/Comorbidities 3 or More Number of Body Systems Impaired 4 or More Clinical Presentation at Evaluation Evolving Impairments Impairments Activity Tolerance,Functional Mobility,Pain,Strength, Transfers Goals Three Impairment LE weakness due to abdominal weakness and pain. Short Term Goal (STG) Pt will be able to get out of a regular hgt chair without L abdominal pain or difficulty. STG Duration 06/03/22 (05/05/22: MET GOAL). Longterm Goal (LTG) Strengthen legs with pt able able to get out of a low chair without L abdominal pain or difficulty. 06/03/22: progressing: ableto get out of 20.5 chair without UE support. 06/07/22: LTG Duration 07/17/22 progressin06/03/22 Two Impairment Decreased core stability Short Term Goal (STG) Pt will be able to get out of bed independently. STG Duration 05/06/22 (05/13/22: MET GOAL) Longterm Goal (LTG) Pt will be able to reach for objects on the L side (example tying shoes) when bending over without onset of sharp pain. (06/07/22: Able to tie left shoe.) LTG Duration 07/17/22 (06/07/22: MET GOAL) One Impairment Lacks appropriate self care HEP. Short Term Goal (STG) Pt will be indepedent in a general HEP for arthritic hips , feet, neck, and hands. 04/25/22: HEP: hip AB, knee flex/ext. 06/03/22: Initiated knee fall out, leg slide core progression. 06/07/22: HEP: ankle/toe AROM & knee AROM ex's. 06/03/22: Alternate arm lifts by Naya Avelar, STATIONS SUPERINTENDENT. STG Duration 06/03/22 (06/07/22: Progressed ) Advertising Specialist Goal (LTG) Pt will be independent in a progressive self care core stabilization program. 04/28/22: HEP issued: Deep Breathing, TA/Abdominal bracing. 06/03/22: Initiated knee fall out, leg slide core progression. LTG Duration 07/17/22 (06/03/22: Progressed) Progress Towards Goals Progress Comments Progressed HEP. Assessment Summary Assessment Pt able to get out of bed; therefore no further training is needed. The pt has generally improved and is now able to reach her L foot for dressing without abdominal pain. Pt has not attempted to sit in her low chair at home, but will do it this week. She has trouble maintaining core stability with LE movements; therefore core weaknes persists. Pt will benefit from continued skilled physical therapy to work towards above stated goals. Physical Therapy Plan Frequency and Duration Frequency of Treatment 2x/Week Plan of Care Start Date 04/18/22 Plan of Care End Date 07/17/22 Therapeutic Interventions Therapeutic Interventions Gait Training,Home Exercise Program,Manual Therapy, Neuromuscular Re-education, Patient/Caregiver Education, Self-Care/Home Management,Soft Tissue Mobilization,Taping, Therapeutic Activities, Therapeutic Exercises Modalities Cold Pack/Ice Massage,Hot Packs Next Visit Focus/Plan Next Note Type Treatment Note Next Visit Plan POC: Strengthening LE's to improve STS transfer from low chair (LTG #3). Assess response to feet ex's ( feet pain after prolonged sitting). HEP: Add General HEP for arthritis: ROM (rot & sup micheal ext) neck & hands for arthritis. Strengthening: Core and LE's (note lifting weight limit). Exercise: Core stabilization & LE strengthening. Gait training.
--- NOTE | 2022-06-10 10:33 | PT.OTN ---
Current Diagnoses Other specified postprocedural states (06/09/22) Physical Therapy Treatment Note PT-OP-A Visit Information Start: 04/18/22 12:46 Freq: Status: Active Protocol: Document 06/09/22 09:50 SP (Rec: 06/09/22 10:35 SP [id number]) Out-Patient Physical Therapy Visit Information Visit Information Visit Type Treatment Note Visit Note 09/13 Visit Start Time 09:50 Visit Stop Time 10:33 Total Visit Minutes 43 Visit Number 10 Number of FEATHER CURLING MACHINE OPERATOR Visits 1 Evaluation Information Evaluation Date 04/18/22 Precautions Precautions Fungal infection under the breasts. Verbal Restrictions from thoracic surgeon: No vaccuming, twisting, lifting no more than 10#. PMH per pt: Osteoporosis, Neuropathy of feet, History of C2 fracture - 04/10/2017. Breast CA-12/2018 f/b 6 wks radiation in [facility] with f/u care with Dr. Hurley and has chosen to stop Tamoxifen for breast CA, but stopped due to risk of uterine cancer side effects. Omar SAPPHIRE (R 2007; L 08/2008), L TKA 194, revision 05/2009. Controlled HBP. PT-OP-B Current Condition Start: 04/18/22 12:46 Freq: Status: Active Protocol: Document 04/18/22 15:19 LRN (Rec: 04/18/22 17:05 LRN [id number]) Current Condition History of Current Condition Onset Date 02/04/22 Current Complaints GERD, lacks core strength, lacks ex program. History of Current Condition Giant level 3 hernia repair & correction of lifted stomach that was twisting esophagus and putting pressure on the lungs; surgery sewed stomach to esophagus to keep it from twisting. Severe arthritis. Has difficulty getting out of chair and would like an exercise program to help her arthritis, broken neck and abdominal problems. In last 3 weeks ago fungal infection under the breasts. Prior Treatments and Tests Verbal Restrictions from surgeon: No vaccuming, twisting, lifting no more than 10#. Exercises on home recumbent bike. Future Testing and Treatments Planned Surgeon f/u Dr. Crawley 05/11/2022 Developmental History Developmental History 2018: Broken C2, no surgery, can't turn head. Saw Ej, PT . Treatment Goals Patient/Caregiver Goals Pt goals is: Strengthen core. HEP: for arthritis in hips, feet, neck, hands. Prior Functional Status Baseline Function- ADL's Independent Baseline Function- Mobility Independent Baseline Function- Gait Walked with walking sticks 1 mile (around [place] 4) , 2-3x/week. Current Functional Impairments (Reported) Functional Limitations- ADL's Unable to get out of bed independently. Diffculty getting out of a chair. Unable to get out of low chair independently. Trouble doing things on the L side when bending over (tying shoes) Functional Limitations- Mobility/Gait Not able to resume walking program (can walk 1/4 mile up/ back). [place] with an outdoor walker with spouse to manage walker. Personal Factors Other Personal Factors That May Effect Needs assist of spouse to go Therapy/Recovery walk and get out of bed. Fungal infection under the breasts. Pain under the L breast where stomach was attached to the esophagus. Ongoing hx of Breast cancer & prior C2 fracture. PT-OP-C Subjective Start: 04/18/22 12:46 Freq: Status: Active Protocol: Document 06/09/22 09:50 SP (Rec: 06/09/22 10:35 SP [id number]) OP-PT Subjective Patient Comments Patient Comments Pt stated L arm felt little better after last tx but then had flu shot and L shld sore today and wasn't able to do ex due to body response to shot. PT-OP-H Neuro Start: 04/18/22 12:46 Freq: Status: Active Protocol: Document 04/18/22 15:19 LRN (Rec: 04/18/22 17:05 LRN [id number]) Sensation Evaluation Comments Summary Comments Neuopathy of feet. PT-OP-J Posture/Palpation/Skin Start: 04/18/22 12:46 Freq: Status: Active Protocol: Document 04/18/22 15:19 LRN (Rec: 04/18/22 17:05 LRN [id number]) Posture Evaluation Position Standing Head/C-Spine Posture Side Bent Left,Forward Head T-Spine Posture Rotation Right,Increased Kyphosis L-Spine Posture Increased Lordosis,Shifted Right Shoulder Posture (R) Elevated Scapula Posture (R) Elevated Arm Posture (L) Internally Rotated,(R) Internally Rotated Knee Posture (L) Genu Valgus,(R) Genu Valgus Comments Posture Comments Head/neck shifted R, trunk R rotated-R breast posterior to L, L lower leg ER'd. Palpation Assessment Location Abdomen Palpation Location L abdomen @ level 2 below top of scar and along medial rib border Palpation Findings Tenderness PT-OP-K Range of Motion Start: 04/18/22 12:46 Freq: Status: Active Protocol: Document 04/22/22 14:34 LRN (Rec: 04/22/22 15:18 LRN [id number]) Lumbar Spine Range of Motion Lumbar Spine Percentage Testing Position Standing Rotation Left 50 Rotation Right 25 Comments Trunk Rot with SBA Hip Goniometric Range of Motion Hip Right Passive Testing Position Supine Straight Leg Raise 75 Internal Rotation 50 External Rotation 45 Comments SLR limited by hamstring tightness. Left Passive Testing Position Supine Straight Leg Raise 60 Internal Rotation 40 External Rotation 55 Comments SLR limited due to anterior hip pain. PT-OP-M Strength Start: 04/18/22 12:46 Freq: Status: Active Protocol: Document 04/22/22 14:34 LRN (Rec: 04/22/22 15:18 LRN [id number]) Hip Strength Hip Manual Muscle Testing Right Flexion (L2) 2- Poor- Abduction 3 Fair External Rotation 2 Poor Internal Rotation 5 Normal Comments Hip flexion weakness due to poor core stability Left Flexion (L2) 2- Poor- Abduction 3 Fair External Rotation 2 Poor Internal Rotation 5 Normal Comments Hip flexion weakness due to poor core stability PT-OP-Q Treatments Start: 04/18/22 12:46 Freq: Status: Active Protocol: Document 06/09/22 09:50 SP (Rec: 06/09/22 10:35 SP [id number]) Therapeutic Exercises Supine Exercises leg slide Supine Exercise Name reviewed Resistance AROM Reps/Minutes 30x each side Comments cued slow TA braced Shldr ER/IR Supine Exercise Name Alternating Behind head/Behind back type positioning. Side bilateral Equipment Used discussed hold until feels better. Reps/Minutes 30x Comments improvement in ableto reach behind head but only at side today, good core Alternate arm lifts Supine Exercise Name Alternate arm press into table better than lift for TA response Side bilateral Reps/Minutes 10reps x2 Comments elbows straight lift/lower waving, good core fac felt- little discomf L shld C. AROM Supine Exercise Name C/S Rotation Side bilateral Reps/Minutes 10 SH x 5 Sitting Exercises Ankle AROM Sitting Exercise Name Alphabet and circles Side bilateral Reps/Minutes 1x alphabent, 10x circles. Ankle pumps/toes ext-flex Sitting Exercise Name Ankle pumps/toes flex-ext prior to standing Side bilateral Reps/Minutes 2' LAQ Sitting Exercise Name LAQ Side bilateral Equipment Used Lev2> AROM Reps/Minutes x10 reps, 2 s Comments good sit posture on table STS Sitting Exercise Name STS w/hip AB Resistance (L lower leg is ER'd due to hip dysfunction) Equipment Used Lev2 TB around knees, table height 20.5>20>19.5>19>18.5 height Reps/Minutes arms front, total 20 reps Comments cued for hip abd during STS Manual Therapy Treatment Soft Tissue Mobilization L neck, L shld Body Location UT, LS Mobilization Type Rolling,Strumming Intensity/Depth Moderate Body Position Hooklying Comments manual and discussion self, next tx add use theracane next tx didn't get to. PT-OP-T Assessment and Plan Start: 04/18/22 12:46 Freq: Status: Active Protocol: Document 06/09/22 09:50 SP (Rec: 06/09/22 10:35 SP [id number]) Physical Therapy Assessment Goals Three Impairment LE weakness due to abdominal weakness and pain. Short Term Goal (STG) Pt will be able to get out of a regular hgt chair without L abdominal pain or difficulty. STG Duration 06/03/22 (05/05/22: MET GOAL). Custodial Goal (LTG) Strengthen legs with pt able able to get out of a low chair without L abdominal pain or difficulty. 06/03/22: progressing: ableto get out of 20.5 chair without UE support. 06/09/22: able to STS from 18.5 table height with out UE support. LTG Duration 07/17/22 progressin06/09/22 One Impairment Lacks appropriate self care HEP. Short Term Goal (STG) Pt will be indepedent in a general HEP for arthritic hips , feet, neck, and hands. 04/25/22: HEP: hip AB, knee flex/ext. 06/03/22: Initiated knee fall out, leg slide core progression. 06/07/22: HEP: ankle/toe AROM & knee AROM ex's. 06/03/22: Alternate arm lifts by Naya Avelar PTA. STG Duration 06/03/22 (06/07/22: Progressed ) Extruder Tender Goal (LTG) Pt will be independent in a progressive self care core stabilization program. 04/28/22: HEP issued: Deep Breathing, TA/Abdominal bracing. 06/03/22: Initiated knee fall out, leg slide core progression. LTG Duration 07/17/22 (06/03/22: Progressed) Assessment Summary Assessment Pt improved STS with ability to come to stand from 18.5 height surface. Good recall and demo of sitting HEP. Physical Therapy Plan Frequency and Duration Frequency of Treatment 2x/Week Plan of Care Start Date 04/18/22 Plan of Care End Date 07/17/22 Therapeutic Interventions Therapeutic Interventions Gait Training,Home Exercise Program,Manual Therapy, Neuromuscular Re-education, Patient/Caregiver Education, Self-Care/Home Management,Soft Tissue Mobilization,Taping, Therapeutic Activities, Therapeutic Exercises Modalities Cold Pack/Ice Massage,Hot Packs Next Visit Focus/Plan Next Note Type Treatment Note Next Visit Plan Add standing core exercises to progress functional strengthening: mini squat holds, john stepping level/ uneven surfaces, squat package pick up items off floor, body mechanics. POC: Strengthening LE's to improve STS transfer from low chair (LTG #3). Assess response to feet ex's ( feet pain after prolonged sitting). HEP: Add General HEP for arthritis: ROM (rot & sup hao ext) neck & hands for arthritis. Strengthening: Core and LE's (note lifting weight limit). Exercise: Core stabilization & LE strengthening. Gait training.
--- NOTE | 2022-07-05 17:18 | PT.OPDS ---
Current Diagnoses Other specified postprocedural states (06/09/22) Visit Care Team Role Provider Type Kami Ballesteros MD Attending Provider Non-Staff Family Provider Primary Care Provider Referring Provider Specialty: Medical Address: [address] [place] [address], [address] MD; [place], [address] Email: Visit Number Visit Number 10 Discharge Summary PT-OP-B Current Condition Start: 04/18/22 12:46 Freq: Status: Active Protocol: Document 04/18/22 15:19 LRN (Rec: 04/18/22 17:05 LRN [id number]) Current Condition History of Current Condition Onset Date 02/04/22 Current Complaints GERD, lacks core strength, lacks ex program. History of Current Condition Giant level 3 hernia repair & correction of lifted stomach that was twisting esophagus and putting pressure on the lungs; surgery sewed stomach to esophagus to keep it from twisting. Severe arthritis. Has difficulty getting out of chair and would like an exercise program to help her arthritis, broken neck and abdominal problems. In last 3 weeks ago fungal infection under the breasts. Prior Treatments and Tests Verbal Restrictions from surgeon: No vaccuming, twisting, lifting no more than 10#. Exercises on home recumbent bike. Future Testing and Treatments Planned Surgeon f/u Dr. Crawley 05/11/2022 Developmental History Developmental History 2018: Broken C2, no surgery, can't turn head. Saw Ej, PT . Treatment Goals Patient/Caregiver Goals Pt goals is: Strengthen core. HEP: for arthritis in hips, feet, neck, hands. Prior Functional Status Baseline Function- ADL's Independent Baseline Function- Mobility Independent Baseline Function- Gait Walked with walking sticks 1 mile (around [place] 4) , 2-3x/week. Current Functional Impairments (Reported) Functional Limitations- ADL's Unable to get out of bed independently. Diffculty getting out of a chair. Unable to get out of low chair independently. Trouble doing things on the L side when bending over (tying shoes) Functional Limitations- Mobility/Gait Not able to resume walking program (can walk 1/4 mile up/ back). Can walk around [place] x2 with an outdoor walker with spouse to manage walker. Personal Factors Other Personal Factors That May Effect Needs assist of spouse to go Therapy/Recovery walk and get out of bed. Fungal infection under the breasts. Pain under the L breast where stomach was attached to the esophagus. Ongoing hx of Breast cancer & prior C2 fracture. PT-OP-C Subjective Start: 04/18/22 12:46 Freq: Status: Active Protocol: Document 06/09/22 09:50 SP (Rec: 06/09/22 10:35 SP [id number]) OP-PT Subjective Patient Comments Patient Comments Pt stated L arm felt little better after last tx but then had flu shot and L shld sore today and wasn't able to do ex due to body response to shot. PT-OP-H Neuro Start: 04/18/22 12:46 Freq: Status: Active Protocol: Document 04/18/22 15:19 LRN (Rec: 04/18/22 17:05 LRN [id number]) Sensation Evaluation Comments Summary Comments Neuopathy of feet. PT-OP-J Posture/Palpation/Skin Start: 04/18/22 12:46 Freq: Status: Active Protocol: Document 04/18/22 15:19 LRN (Rec: 04/18/22 17:05 LRN [id number]) Posture Evaluation Position Standing Head/C-Spine Posture Side Bent Left,Forward Head T-Spine Posture Rotation Right,Increased Kyphosis L-Spine Posture Increased Lordosis,Shifted Right Shoulder Posture (R) Elevated Scapula Posture (R) Elevated Arm Posture (L) Internally Rotated,(R) Internally Rotated Knee Posture (L) Genu Valgus,(R) Genu Valgus Comments Posture Comments Head/neck shifted R, trunk R rotated-R breast posterior to L, L lower leg ER'd. Palpation Assessment Location Abdomen Palpation Location L abdomen @ level 2 below top of scar and along medial rib border Palpation Findings Tenderness PT-OP-K Range of Motion Start: 04/18/22 12:46 Freq: Status: Active Protocol: Document 04/22/22 14:34 LRN (Rec: 04/22/22 15:18 LRN [id number]) Lumbar Spine Range of Motion Lumbar Spine Percentage Testing Position Standing Rotation Left 50 Rotation Right 25 Comments Trunk Rot with SBA Hip Goniometric Range of Motion Hip Right Passive Testing Position Supine Straight Leg Raise 75 Internal Rotation 50 External Rotation 45 Comments SLR limited by hamstring tightness. Left Passive Testing Position Supine Straight Leg Raise 60 Internal Rotation 40 External Rotation 55 Comments SLR limited due to anterior hip pain. PT-OP-M Strength Start: 04/18/22 12:46 Freq: Status: Active Protocol: Document 04/22/22 14:34 LRN (Rec: 04/22/22 15:18 LRN [id number]) Hip Strength Hip Manual Muscle Testing Right Flexion (L2) 2- Poor- Abduction 3 Fair External Rotation 2 Poor Internal Rotation 5 Normal Comments Hip flexion weakness due to poor core stability Left Flexion (L2) 2- Poor- Abduction 3 Fair External Rotation 2 Poor Internal Rotation 5 Normal Comments Hip flexion weakness due to poor core stability PT-OP-T Assessment and Plan Start: 04/18/22 12:46 Freq: Status: Active Protocol: Document 07/05/22 17:14 LRN (Rec: 07/05/22 17:18 LRN [id number]) Physical Therapy Assessment Goals Three Impairment LE weakness due to abdominal weakness and pain. Short Term Goal (STG) Pt will be able to get out of a regular hgt chair without L abdominal pain or difficulty. STG Duration 06/03/22 (05/05/22: MET GOAL). Half-Way Goal (LTG) Strengthen legs with pt able able to get out of a low chair without L abdominal pain or difficulty. 06/03/22: progressing: ableto get out of 20.5 chair without UE support. 06/09/22: able to STS from 18.5 table height with out UE support. LTG Duration 07/17/22 progressin, GOAL NOT MET. Two Impairment Decreased core stability Short Term Goal (STG) Pt will be able to get out of bed independently. STG Duration 05/06/22 (05/13/22: MET GOAL) Half-Way Goal (LTG) Pt will be able to reach for objects on the L side (example tying shoes) when bending over without onset of sharp pain. (06/07/22: Able to tie left shoe.) LTG Duration 07/17/22 (06/07/22: MET GOAL) One Impairment Lacks appropriate self care HEP. Short Term Goal (STG) Pt will be indepedent in a general HEP for arthritic hips , feet, neck, and hands. 04/25/22: HEP: hip AB, knee flex/ext. 06/03/22: Initiated knee fall out, leg slide core progression. 06/07/22: HEP: ankle/toe AROM & knee AROM ex's. 06/03/22: Alternate arm lifts by Naya Avelar, SUEDING MACHINE OPERATOR. STG Duration 06/03/22 (06/07/22: Progressed ) Tour Escort Goal (LTG) Pt will be independent in a progressive self care core stabilization program. 04/28/22: HEP issued: Deep Breathing, TA/Abdominal bracing. 06/03/22: Initiated knee fall out, leg slide core progression. LTG Duration 07/17/22 (06/03/22: Progressed, GOAL NOT MET) Assessment Summary Assessment Pt was seen for 10 therapy visits and was making good progress with lessening of her pain with movement. She was last seen 06/09/22 and cancelled all her remaining appointments; therefore the pt will be discharged from physical therapy due to lack of attendance. Physical Therapy Plan Discharge Physical Therapy Discharge Reasons No Longer Attending PT Discharge Comments Thank you for your referral.
--- NOTE | 2022-07-15 17:48 | PT.OPDS ---
Current Diagnoses Other specified postprocedural states (06/09/22) Visit Care Team Role Provider Type Kami Ballesteros MD Attending Provider Non-Staff Family Provider Primary Care Provider Referring Provider Specialty: Medical Address: [address] [place] [address], [address] MD; [place], [address] Email: Visit Number Visit Number 10 Discharge Summary PT-OP-B Current Condition Start: 04/18/22 12:46 Freq: Status: Active Protocol: Document 04/18/22 15:19 LRN (Rec: 04/18/22 17:05 LRN [id number]) Current Condition History of Current Condition Onset Date 02/04/22 Current Complaints GERD, lacks core strength, lacks ex program. History of Current Condition Giant level 3 hernia repair & correction of lifted stomach that was twisting esophagus and putting pressure on the lungs; surgery sewed stomach to esophagus to keep it from twisting. Severe arthritis. Has difficulty getting out of chair and would like an exercise program to help her arthritis, broken neck and abdominal problems. In last 3 weeks ago fungal infection under the breasts. Prior Treatments and Tests Verbal Restrictions from surgeon: No vaccuming, twisting, lifting no more than 10#. Exercises on home recumbent bike. Future Testing and Treatments Planned Surgeon f/u Dr. Crawley 05/11/2022 Developmental History Developmental History 2018: Broken C2, no surgery, can't turn head. Saw Ej, PT . Treatment Goals Patient/Caregiver Goals Pt goals is: Strengthen core. HEP: for arthritis in hips, feet, neck, hands. Prior Functional Status Baseline Function- ADL's Independent Baseline Function- Mobility Independent Baseline Function- Gait Walked with walking sticks 1 mile (around [employer] park x 4) , 2-3x/week. Current Functional Impairments (Reported) Functional Limitations- ADL's Unable to get out of bed independently. Diffculty getting out of a chair. Unable to get out of low chair independently. Trouble doing things on the L side when bending over (tying shoes) Functional Limitations- Mobility/Gait Not able to resume walking program (can walk 1/4 mile up/ back). [place] with an outdoor walker with spouse to manage walker. Personal Factors Other Personal Factors That May Effect Needs assist of spouse to go Therapy/Recovery walk and get out of bed. Fungal infection under the breasts. Pain under the L breast where stomach was attached to the esophagus. Ongoing hx of Breast cancer & prior C2 fracture. PT-OP-C Subjective Start: 04/18/22 12:46 Freq: Status: Active Protocol: Document 06/09/22 09:50 SP (Rec: 06/09/22 10:35 SP [id number]) OP-PT Subjective Patient Comments Patient Comments Pt stated L arm felt little better after last tx but then had flu shot and L shld sore today and wasn't able to do ex due to body response to shot. PT-OP-H Neuro Start: 04/18/22 12:46 Freq: Status: Active Protocol: Document 04/18/22 15:19 LRN (Rec: 04/18/22 17:05 LRN [id number]) Sensation Evaluation Comments Summary Comments Neuopathy of feet. PT-OP-J Posture/Palpation/Skin Start: 04/18/22 12:46 Freq: Status: Active Protocol: Document 04/18/22 15:19 LRN (Rec: 04/18/22 17:05 LRN [id number]) Posture Evaluation Position Standing Head/C-Spine Posture Side Bent Left,Forward Head T-Spine Posture Rotation Right,Increased Kyphosis L-Spine Posture Increased Lordosis,Shifted Right Shoulder Posture (R) Elevated Scapula Posture (R) Elevated Arm Posture (L) Internally Rotated,(R) Internally Rotated Knee Posture (L) Genu Valgus,(R) Genu Valgus Comments Posture Comments Head/neck shifted R, trunk R rotated-R breast posterior to L, L lower leg ER'd. Palpation Assessment Location Abdomen Palpation Location L abdomen @ level 2 below top of scar and along medial rib border Palpation Findings Tenderness PT-OP-K Range of Motion Start: 04/18/22 12:46 Freq: Status: Active Protocol: Document 04/22/22 14:34 LRN (Rec: 04/22/22 15:18 LRN [id number]) Lumbar Spine Range of Motion Lumbar Spine Percentage Testing Position Standing Rotation Left 50 Rotation Right 25 Comments Trunk Rot with SBA Hip Goniometric Range of Motion Hip Right Passive Testing Position Supine Straight Leg Raise 75 Internal Rotation 50 External Rotation 45 Comments SLR limited by hamstring tightness. Left Passive Testing Position Supine Straight Leg Raise 60 Internal Rotation 40 External Rotation 55 Comments SLR limited due to anterior hip pain. PT-OP-M Strength Start: 04/18/22 12:46 Freq: Status: Active Protocol: Document 04/22/22 14:34 LRN (Rec: 04/22/22 15:18 LRN [id number]) Hip Strength Hip Manual Muscle Testing Right Flexion (L2) 2- Poor- Abduction 3 Fair External Rotation 2 Poor Internal Rotation 5 Normal Comments Hip flexion weakness due to poor core stability Left Flexion (L2) 2- Poor- Abduction 3 Fair External Rotation 2 Poor Internal Rotation 5 Normal Comments Hip flexion weakness due to poor core stability PT-OP-T Assessment and Plan Start: 04/18/22 12:46 Freq: Status: Active Protocol: Document 07/05/22 17:14 LRN (Rec: 07/05/22 17:18 LRN [id number]) Physical Therapy Assessment Goals Three Impairment LE weakness due to abdominal weakness and pain. Short Term Goal (STG) Pt will be able to get out of a regular hgt chair without L abdominal pain or difficulty. STG Duration 06/03/22 (05/05/22: MET GOAL). Residential Goal (LTG) Strengthen legs with pt able able to get out of a low chair without L abdominal pain or difficulty. 06/03/22: progressing: ableto get out of 20.5 chair without UE support. 06/09/22: able to STS from 18.5 table height with out UE support. LTG Duration 07/17/22 progressin, GOAL NOT MET. Two Impairment Decreased core stability Short Term Goal (STG) Pt will be able to get out of bed independently. STG Duration 05/06/22 (05/13/22: MET GOAL) Residential Goal (LTG) Pt will be able to reach for objects on the L side (example tying shoes) when bending over without onset of sharp pain. (06/07/22: Able to tie left shoe.) LTG Duration 07/17/22 (06/07/22: MET GOAL) One Impairment Lacks appropriate self care HEP. Short Term Goal (STG) Pt will be indepedent in a general HEP for arthritic hips , feet, neck, and hands. 04/25/22: HEP: hip AB, knee flex/ext. 06/03/22: Initiated knee fall out, leg slide core progression. 06/07/22: HEP: ankle/toe AROM & knee AROM ex's. 06/03/22: Alternate arm lifts by Naya Avelar, HEALTH TECH. STG Duration 06/03/22 (06/07/22: Progressed ) Live Source Operator Goal (LTG) Pt will be independent in a progressive self care core stabilization program. 04/28/22: HEP issued: Deep Breathing, TA/Abdominal bracing. 06/03/22: Initiated knee fall out, leg slide core progression. LTG Duration 07/17/22 (06/03/22: Progressed, GOAL NOT MET) Assessment Summary Assessment Pt was seen for 10 therapy visits and was making good progress with lessening of her pain with movement. She was last seen 06/09/22 and cancelled all her remaining appointments; therefore the pt will be discharged from physical therapy due to lack of attendance. Physical Therapy Plan Discharge Physical Therapy Discharge Reasons No Longer Attending PT Discharge Comments Thank you for your referral.
== END 2022-07-18 08:37 | disposition home or self-care (01) ==
LOC: PHYS 09:45
PROVIDERS: Family Provider Student in an Organized Health Care Education/Training Program; PCP Student in an Organized Health Care Education/Training Program; Referring Provider Student in an Organized Health Care Education/Training Program; Visit Provider Student in an Organized Health Care Education/Training Program
DX: Z98.890 Other specified postprocedural states (principal)
CPT/HCPCS: 97110; 97140; 97162; 97535

== ENCOUNTER → 2022-10-29 16:22 | Outpatient (CLI) | payer MEDICARE, OTHER, SELFPAY | PROVIDERS: Family Provider Student in an Organized Health Care Education/Training Program; PCP Student in an Organized Health Care Education/Training Program; Visit Provider Nurse Practitioner Family | DX: R30.0 Dysuria (principal) | CPT/HCPCS: 87086 ==

== ENCOUNTER → 2023-05-12 15:45 | Outpatient (CLI) | payer MEDICARE, OTHER, SELFPAY | PROVIDERS: Family Provider Student in an Organized Health Care Education/Training Program; PCP Student in an Organized Health Care Education/Training Program; Visit Provider Nurse Practitioner Family | DX: R30.0 Dysuria (principal); N89.8 Other specified noninflammatory disorders of vagina | CPT/HCPCS: 87086; 87210 ==

== ENCOUNTER → 2023-10-05 12:38 | Outpatient (CLI) | payer MEDICARE, BC, SELFPAY | PROVIDERS: Family Provider Student in an Organized Health Care Education/Training Program; PCP Student in an Organized Health Care Education/Training Program; Visit Provider Nurse Practitioner Family | DX: R30.0 Dysuria (principal) | CPT/HCPCS: 87086; 87210 ==

== ENCOUNTER → 2025-02-13 17:26 | Outpatient (CLI) | payer MEDICARE, BC, SELFPAY | PROVIDERS: Family Provider Student in an Organized Health Care Education/Training Program; PCP Student in an Organized Health Care Education/Training Program; Visit Provider Chiropractor | DX: R30.0 Dysuria (principal) | CPT/HCPCS: 87077; 87086; 87186 ==

== ENCOUNTER → 2025-05-08 09:35 | Outpatient (CLI) | payer MEDICARE, BC, SELFPAY | PROVIDERS: Family Provider Student in an Organized Health Care Education/Training Program; PCP Student in an Organized Health Care Education/Training Program; Referring Provider Orthopaedic Surgery; Visit Provider Orthopaedic Surgery | DX: R20.0 Anesthesia of skin (principal); R20.2 Paresthesia of skin; M79.641 Pain in right hand | CPT/HCPCS: 95886; 95911 ==